=== PATIENT | female | born 1935 | race American Indian/Alaskan Native ===

== ENCOUNTER 2017-07-16 11:46 | Inpatient (IN) | payer OTHER ==
[2017-07-16 14:50] LABS: BASO % 1.1 % (0.0-2.0); EOS # 0.1 K/uL (0.0-0.7); EOS % 1.4 % (0.0-4.0); HEMOGLOBIN 11.4 g/dL (11.0-16.0); LYMPH # 1.2 K/uL (1.0-4.3); LYMPH % 30.9 % (20.0-40.0); MEAN CELL VOLUME 78.4 fL (81.0-99.0); MEAN CORPUSCULAR HEMOGLOBIN 25.4 pg (27.0-31.0); MEAN CORPUSCULAR HGB CONC 32.3 g/dL (33.0-37.0); MEAN PLATELET VOLUME 8.5 fL (7.2-11.7); MONO # 0.4 K/uL (0.0-0.8); MONO % 9.8 % (0.0-10.0); NEUT # 2.3 K/uL (1.8-7.0); NEUT % 56.8 % (50.0-75.0); NRBC % 0.2 % (0.0-2.0); RBC 4.5 Mil/uL (3.80-5.20); RED CELL DISTRIBUTION WIDTH 19.3 % (11.5-14.5)
--- NOTE | 2017-07-16 15:04 | CT ---
PROCEDURE: CT HEAD WITHOUT CONTRAST. HISTORY: Dizziness. b/l ear pain COMPARISON: None available. TECHNIQUE: Axial computed tomography images were obtained through the head/brain without intravenous contrast. Radiation dose: Total exam DLP = 808.83 mGy-cm. This CT exam was performed using one or more of the following dose reduction techniques: Automated exposure control, adjustment of the mA and/or kV according to patient size, and/or use of iterative reconstruction technique. FINDINGS: HEMORRHAGE: No intracranial hemorrhage. BRAIN: Diffuse atrophy with prominence of the ventricles and sulci noted. No mass effect or edema. Dense intracranial atherosclerosis. Nonspecific prominence of the pituitary gland measuring approximately 9 mm. Scattered periventricular and subcortical white matter hypodensities, which are nonspecific, but often seen with chronic microvascular ischemic disease. Please note that MRI with diffusion imaging is more sensitive in the detection of acute ischemic event. VENTRICLES: No hydrocephalus. CALVARIUM: Unremarkable. PARANASAL SINUSES: Unremarkable as visualized. No significant inflammatory changes. MASTOID AIR CELLS: Opacification/fluid within the right mastoid air cells. The left mastoid air cells appear clear. OTHER FINDINGS: None. IMPRESSION: Generalized atrophy. Nonspecific white matter changes. Partial opacification/fluid within the right mastoid air cells. Correlate clinically mastoiditis. Nonspecific prominence of the pituitary gland measuring approximately 9 mm.
[2017-07-16 15:20] LABS: CALCIUM 8.6 mg/dl (8.6-10.4); GFR AFRICAN-AMERICAN > 60; GFR NON-AFRICAN AMERICAN > 60
[2017-07-16 15:22] LABS: ALB/GLOB RATIO 1.1 (1.0-2.1); ALBUMIN 4.4 g/dL (3.5-5.0); ALT/SGPT 19 U/L (9-52); AST/SGOT 61 U/L (14-36); BLOOD UREA NITROGEN 15 mg/dL (7-17); MAGNESIUM 1.3 mg/dL (1.6-2.3)
[2017-07-16] MEDS ORDERED: Magnesium Sulfate 1 gm in D5W 1 GM/100 ML BAG IVPB STA (15:46)
[2017-07-16] MEDS ORDERED: cefTRIAXone IV 1 gm in Dextros 50 ML IVPB ONE (16:03)
[2017-07-16] MEDS ORDERED: Vancomycin 1 GM 1 GM/250 ML BAG IVPB STA (16:03)
--- NOTE | 2017-07-16 16:04 | C.PDOC ---
History Of Present Illness Pt had a near-syncopal episode this morning. Pt has been c/o ear pain on/off for the past 2 weeks. Time Seen by Provider: 07/16/17 13:11 Chief Complaint (Nursing): Dizziness/Lightheaded History Per: Patient Onset/Duration Of Symptoms: Hrs (this morning) Current Symptoms Are (Timing): Better Number Of Syncopal Episodes: 1 Associated Symptoms Preceding Syncopal Episode: Worse With Standing Seizure Or Post-ictal Symptoms: None Fall Associated With With Symptoms: No Severity: Moderate Additional History Per: Prior Records - Symptoms Of CVA Recent Head Trauma: No Past Medical History Reviewed: Historical Data, Nursing Documentation, Vital Signs Vital Signs: Last Vital Signs Temp 98.3 F 07/16/17 12:00 Pulse 70 07/16/17 12:00 Resp 16 07/16/17 12:00 BP 210/83 H 07/16/17 12:00 Pulse Ox 98 07/16/17 12:00 - Medical History PMH: Arthritis, Colonic Polyps, Diverticulitis, HTN, Hypercholesterolemia Surgical History: Appendectomy, Endoscopy - [facility] Procedures CLOSED ENDOSCOPIC BIOPSY OF LARGE INTESTINE (10/21/13) Family History: States: Unknown Family Hx - Social History Hx Tobacco Use: No Hx Alcohol Use: No Hx Substance Use: No - Immunization History Hx Tetanus Toxoid Vaccination: No Hx Influenza Vaccination: No Hx Pneumococcal Vaccination: No Review Of Systems Except As Marked, All Systems Reviewed And Found Negative. Constitutional: Negative for: Weakness ENT: Positive for: Ear Pain. Negative for: Ear Discharge Cardiovascular: Negative for: Chest Pain Respiratory: Negative for: Shortness of Breath, Hemoptysis Gastrointestinal: Positive for: Nausea. Negative for: Vomiting, Abdominal Pain Musculoskeletal: Negative for: Neck Pain Skin: Negative for: Rash Neurological: Negative for: Weakness, Numbness, Seizures, Altered Mental Status Physical Exam - Physical Exam Appears: Non-toxic, No Acute Distress Skin: Normal Color, Warm, Dry, No Rash Head: Atraumatic, Normacephalic, Tenderness (to right mastoid area) Eye(s): bilateral: PERRL, EOMI Ear(s): Left: Other (excessive was in ear canal), Right: Normal Neck: Normal ROM, Supple Cardiovascular: Rhythm Regular Respiratory: Normal Breath Sounds, No Accessory Muscle Use Gastrointestinal/Abdominal: Soft, No Tenderness Extremity: Normal ROM Neurological/Psych: Oriented x3, Normal Motor, Normal Sensation ED Course And Treatment - Laboratory Results Result Diagrams: 07/16/17 14:45 07/16/17 14:45 Interpretation Of Abnormal: Mild hypomagnesemia ECG: Interpreted By Me, Viewed By Me ECG Rhythm: Sinus Rhythm, Nonspecific Changes Rate From EC O2 Sat by Pulse Oximetry: 98 Pulse Ox Interpretation: Normal - CT Scan/US CT head Other Rad Studies (CT/US): Read By Radiologist, Radiology Report Reviewed CT/US Interpretation: IMPRESSION: Generalized atrophy. Nonspecific white matter changes. Partial opacification/fluid within the right mastoid air cells. Correlate clinically mastoiditis. Nonspecific prominence of the pituitary gland measuring approximately 9 mm. Progress - Interventions Interventions:: Observation - Medications Administered Oral: Antihypertensive Intravenous: Other (Abx. Mg.) - Data Reviewed Data Reviewed: Lab, Diagnostic imaging, EKG, Old records - Patient Status Patient status: Partially improved - Continuity of Care Discussed patient case with:: Patient, ED Nurse, Covering for PMD Disposition Discussed With : Julian Bowens Comment: He accepted pt on his service. Doctor Will See Patient In The: Hospital Counseled Patient/Family Regarding: Studies Performed, Diagnosis - Disposition Disposition: HOSPITALIZED Disposition Time: 16:00 Condition: FAIR - Clinical Impression Clinical Impression: Near syncope, Uncontrolled hypertension, Mastoiditis
[2017-07-16] MEDS ORDERED: Magnesium Sulfate 1 gm in D5W 1 GM/100 ML BAG IVPB ONE (16:25)
[2017-07-16] MEDS ORDERED: Vancomycin 1 gm/NS 200 ml 1 GM/200 ML BAG IVPB ONE (18:00)
[2017-07-16] MEDS ORDERED: Enalaprilat 2.5 MG/2 ML IVP STA (18:39)
[2017-07-16] MEDS ORDERED: Enalaprilat 2.5 MG/2 ML ONE (18:52)
--- NOTE | 2017-07-16 19:36 | CP.PCM.HP ---
Past Patient History - Past Medical History & Family History Past Medical History?: Yes - Past Social History Smoking Status: Never Smoked - CARDIAC Hx Hypercholesterolemia: Yes Hx Hypertension: Yes - PULMONARY Hx Respiratory Disorders: No - NEUROLOGICAL Hx Neurological Disorder: No - HEENT Hx HEENT Problems: Yes Hx Cataracts: Yes Hx Glaucoma: Yes - ENDOCRINE/METABOLIC Hx Endocrine Disorders: No - HEMATOLOGICAL/ONCOLOGICAL Hx Blood Disorders: No - INTEGUMENTARY Hx Dermatological Problems: No - MUSCULOSKELETAL/RHEUMATOLOGICAL Hx Arthritis: Yes - GASTROINTESTINAL Hx Diverticulitis: Yes - GENITOURINARY/GYNECOLOGICAL Hx Genitourinary Disorders: No - PSYCHIATRIC Hx Substance Use: No - SURGICAL HISTORY Hx Appendectomy: Yes - ANESTHESIA Hx Anesthesia: Yes Hx Anesthesia Reactions: No Hx Malignant Hyperthermia: No Meds Allergies/Adverse Reactions: Allergies Allergy/AdvReac Type Severity Reaction Status Date / Time No Known Allergies Allergy Verified 07/16/17 12:10 Physical Exam - Constitutional Appears: Well - Head Exam Head Exam: ATRAUMATIC, NORMAL INSPECTION, NORMOCEPHALIC - Eye Exam Eye Exam: EOMI, Normal appearance, PERRL Pupil Exam: NORMAL ACCOMODATION, PERRL - ENT Exam ENT Exam: Mucous Membranes Moist, Normal Exam - Neck Exam Neck exam: Positive for: Normal Inspection - Respiratory Exam Respiratory Exam: Decreased Breath Sounds - Cardiovascular Exam Cardiovascular Exam: REGULAR RHYTHM, +S1, +S2 - GI/Abdominal Exam GI & Abdominal Exam: Diminished Bowel Sounds, Soft - Rectal Exam Rectal Exam: Deferred Results - Vital Signs Recent Vital Signs: Last Vital Signs Temp 98.6 F 07/16/17 19:23 Pulse 72 07/16/17 19:23 Resp 16 07/16/17 19:23 BP 186/95 H 07/16/17 19:23 Pulse Ox 99 07/16/17 19:23 - Labs Result Diagrams: 07/16/17 14:45 07/16/17 14:45 Labs: Laboratory Results - last 24 hr 07/16/17 07/16/17 07/16/17 12:02 14:45 14:45 WBC 4.0 L RBC 4.50 Hgb 11.4 Hct 35.3 MCV 78.4 L MCH 25.4 L MCHC 32.3 L RDW 19.3 H Plt Count 227 MPV 8.5 Neut % (Auto) 56.8 Lymph % (Auto) 30.9 [place] % (Auto) 9.8 Eos % (Auto) 1.4 Baso % (Auto) 1.1 Neut # (Auto) 2.3 Lymph # (Auto) 1.2 [place] # (Auto) 0.4 Eos # (Auto) 0.1 Baso # (Auto) 0.0 Sodium 141 Potassium 4.7 Chloride 101 Carbon Dioxide 31 H Anion Gap 13 BUN 15 Creatinine 0.8 Est GFR ( Amer) > 60 Est GFR (Non-Af Amer) > 60 POC Glucose (mg/dL) 128 H Random Glucose 90 Calcium 8.6 Magnesium 1.3 L Total Bilirubin 1.3 AST 61 H ALT 19 Alkaline Phosphatase 58 Troponin I 0.0150 Total Protein 8.5 H Albumin 4.4 Globulin 4.2 H Albumin/Globulin Ratio 1.1
[2017-07-16] MEDS ORDERED: Enoxaparin 40 mg Syringe SC ONE (20:22)
[2017-07-16] MEDS ORDERED: Aritificial Tears (15ml) OU PRN (20:45)
--- NOTE | 2017-07-17 07:07 | CP.PCM.CON ---
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 DEMENTIA WORK UP MRI/CAROTID/EEG/ECHO Past Patient History - Past Medical History & Family History Past Medical History?: Yes - Past Social History Smoking Status: Never Smoked - CARDIAC Hx Hypercholesterolemia: Yes Hx Hypertension: Yes - PULMONARY Hx Respiratory Disorders: No - NEUROLOGICAL Hx Neurological Disorder: No - HEENT Hx HEENT Problems: Yes Hx Cataracts: Yes Hx Glaucoma: Yes - ENDOCRINE/METABOLIC Hx Endocrine Disorders: No - HEMATOLOGICAL/ONCOLOGICAL Hx Blood Disorders: No - INTEGUMENTARY Hx Dermatological Problems: No - MUSCULOSKELETAL/RHEUMATOLOGICAL Hx Falls: Yes (2 years ago x1) - GASTROINTESTINAL Hx Diverticulitis: Yes - GENITOURINARY/GYNECOLOGICAL Hx Genitourinary Disorders: No - PSYCHIATRIC Hx Substance Use: No - SURGICAL HISTORY Hx Appendectomy: Yes - ANESTHESIA Hx Anesthesia: Yes Hx Anesthesia Reactions: No Hx Malignant Hyperthermia: No Meds Allergies/Adverse Reactions: Allergies Allergy/AdvReac Type Severity Reaction Status Date / Time No Known Allergies Allergy Verified 07/16/17 12:10 - Medications Medications: Current Medications Artificial Tears (Artificial Tears) 0 ml OU Q6H PRN PRN Reason: DRY EYES Aspirin (Ecotrin) 81 mg PO DAILY [facility] Ceftriaxone Sodium (Rocephin 1 Gram Ivpb) 1 gm in 100 mls @ 100 mls/hr IVPB DAILY@1100 [facility] Azithromycin 500 mg/ Sodium (Chloride) 250 mls @ 250 mls/hr IVPB DAILY [facility] Lactulose (Enulose) 10 gm PO BID [facility] Losartan Potassium (Cozaar) 25 mg PO DAILY [facility] Pantoprazole Sodium (Protonix Ec Tab) 40 mg PO DAILY [facility] Pneumococcal Polyvalent Vaccine (Pneumovax 23 Vaccine) 0.5 ml IM .ONCE ONE Stop: 07/19/17 10:01 Propranolol HCl (Inderal) 20 mg PO BID [facility] Rosuvastatin Calcium (Crestor) 10 mg PO HS [facility] Last Admin: 07/16/17 22:49 Dose: 10 mg Rosuvastatin Calcium (Crestor) 5 mg PO HS [facility] Tramadol HCl (Ultram) 50 mg PO Q6 PRN PRN Reason: Pain, moderate (4-7) Results - Vital Signs Recent Vital Signs: Last Vital Signs Temp 98.2 F 07/16/17 23:00 Pulse 67 07/16/17 23:00 Resp 20 07/16/17 23:00 BP 185/75 H 07/16/17 23:00 Pulse Ox 99 07/16/17 23:00 - Labs Result Diagrams: 07/16/17 14:45 07/16/17 14:45 Labs: Laboratory Results - last 24 hr 07/16/17 07/16/17 07/16/17 12:02 14:45 14:45 WBC 4.0 L RBC 4.50 Hgb 11.4 Hct 35.3 MCV 78.4 L MCH 25.4 L MCHC 32.3 L RDW 19.3 H Plt Count 227 MPV 8.5 Neut % (Auto) 56.8 Lymph % (Auto) 30.9 [place] % (Auto) 9.8 Eos % (Auto) 1.4 Baso % (Auto) 1.1 Neut # (Auto) 2.3 Lymph # (Auto) 1.2 [place] # (Auto) 0.4 Eos # (Auto) 0.1 Baso # (Auto) 0.0 Sodium 141 Potassium 4.7 Chloride 101 Carbon Dioxide 31 H Anion Gap 13 BUN 15 Creatinine 0.8 Est GFR ( Amer) > 60 Est GFR (Non-Af Amer) > 60 POC Glucose (mg/dL) 128 H Random Glucose 90 Calcium 8.6 Magnesium 1.3 L Total Bilirubin 1.3 AST 61 H ALT 19 Alkaline Phosphatase 58 Troponin I 0.0150 Total Protein 8.5 H Albumin 4.4 Globulin 4.2 H Albumin/Globulin Ratio 1.1
[2017-07-17 08:36] LABS: HDL CHOLESTEROL 52 mg/dL (30-70)
[2017-07-17 08:42] LABS: FREE T4 1.31 ng/dL (0.78-2.19)
[2017-07-17 08:48] LABS: LDL CHOLESTEROL 165 mg/dL (0-129)
--- NOTE | 2017-07-17 08:53 | CON ---
DATE: 07/17/2017. TIME OF EVALUATION: 06:35 a.m. NEUROLOGICAL PROBLEM: Near syncopal attack. CHIEF COMPLAINT: The patient was brought into [facility] with history of episode of lightheadedness, which decided make her to come to the hospital for further evaluation. HISTORY OF PRESENT ILLNESS: Ms. Mandy Can is an 81-year-old right-handed female been presenting with about to 2-weeks history of ear pain and being told with infection spreading down to her neck. Prior to the admission, while she was sitting in the breakfast table she felt abrupt onset of lightheadedness. No history of fall. No history of trauma. No history of involuntary movements. No history of bowel and bladder incontinence at the scene. No similar episodes happened in the past. She also admitting history of left leg swelling and alternating pain to the right and left leg for the last 2 years. Denies lower back pain. She also admitting tingling and numbness sensation of her both arms and legs for more than a year. PAST MEDICAL HISTORY: Hypertension, arthritis. ALLERGIES: NO KNOWN ALLERGIES. PERSONAL HISTORY: Denies smoking or alcohol use. REVIEW OF SYSTEMS: A 12-point system been reviewed from [facility]. MEDICATIONS: Azithromycin, Crestor, Enulose, Inderal, Protonix, ceftriaxone. PHYSICAL EXAMINATION: VITAL SIGNS: Blood pressure 185/75, mean artery pressure of 111, respiratory rate 16, temperature 98.2, pulse rate 67. NECK : Supple. No carotid bruits. HEART: Sounds regular. CHEST: Fair air entry. EXTREMITIES: No edema in legs. NEUROLOGIC: Mental status examination, she is awake, alert, oriented to person, place and time. Speech is clear. Naming, repetition, fluency, comprehension all within normal. Cranial nerve examination, visual field intact. Pupils reactive to light. Extraocular movement decreased in all direction. No facial sensory deficit. No facial asymmetry. Hearing seems to be intact. Tongue is midline. Good gag. Mouth is moist. Motor examination, outstretched hand with eyes closed, no drift noted. Mild sensory tremor noted. Deep tendon reflexes, mildly increased deep tendon reflexes in the right upper extremity to compare with the left side. Both knees are absent. Both ankles are absent. Plantars are downgoing. Coordination, [id number] test is intact. Sensory examination, bilateral distal symmetric sensory motor neuropathy noted. No cortical sensory loss. WORKUP : CT of the head, atrophy with no acute changes noted. EKG normal sinus rhythm. Blood workup, WBC 4.0, hemoglobin 11.4, hematocrit 35.3, platelet 227. Sodium 141, potassium 4.7, chloride 101, bicarbonate 31, BUN 15, creatinine 0.8, GFR more than 60. Glucose 128, calcium 8.6, magnesium 1.3. CONCLUSION: Upon reviewing her history and neurological examination Ms. Mandy Salehy been presenting with; 1. Near syncopal attack. From neurological point of view, it could be vertebrobasilar insufficiency versus nonconvulsive seizures. 2. The patient also suffering from possible left subcortical dysfunction manifesting with right upper hyperreflexia could be from small vessel disease, which probably old. 3. 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 RECOMMENDATIONS: 1. MRI of the brain to rule out any ischemic process. 2. Carotid Doppler to assess the stenosis. 3. Electroencephalogram to rule out paroxysmal activities. 4. Dementia workup. 5. The patient is okay to continue with antiplatelets for stroke prophylaxis in addition to statin and angiotensin receptor blockers. The patient will be followed closely with you. Hayden Worthy MD
[2017-07-17] MEDS: Pantoprazole 40 mg EC Tab PO SCH (09:08)
[2017-07-17 09:56] LABS: FOLATE > 20.0 ng/mL
[2017-07-17] MEDS ORDERED: Pantoprazole 40 mg EC Tab PO SCH (10:00)
--- NOTE | 2017-07-17 10:34 | MRI ---
PROCEDURE: MRI of the brain dated 07/17/2017 HISTORY: MASTER PILOT ischemia COMPARISON: Comparison made with prior CT scan brain 07/16/2017. TECHNIQUE: Multiplanar, multisequence MR images of the brain were obtained without intravenous contrast enhancement. FINDINGS: HEMORRHAGE: No acute parenchymal, subarachnoid or extra-axial hemorrhage. No evidence of hemosiderin deposition identified on gradient echo weighted sequence. DWI: No evidence of an acute or early subacute infarction seen on diffusion imaging. BRAIN PARENCHYMA: No acute intracranial hemorrhage. Moderate diffuse/ confluent chronic periventricular white matter ischemic changes seen extending peripherally into the deep white matter both cerebral hemispheres. Multiple more discrete ischemic foci scattered about the deep and subcortical white matter on bilaterally. There are also ischemic changes seen within the mid beto. There may also be scattered chronic bilateral basal nuclei lacunar type infarcts admixed with dilated perivascular spaces. None of these changes exhibit restricted diffusion. No obvious parenchymal nor extra-axial mass or collection seen on this noncontrast study. Note aspect of the interhemispheric fissure again made of a large on dural calcification within the anterior Moderate to fairly significant somewhat more central volume loss evidenced by disproportionate enlargement of the ventricles as compared the sulci. VENTRICLES: No obstructive hydrocephalus. CRANIUM: No calvarial abnormalities Note made of a large ORBITS: Orbits and contents grossly unremarkable. PARANASAL SINUSES/MASTOIDS: There is partial opacification right inferior mastoid air complex. VASCULAR SYSTEM: The cavernous and supraclinoid segments of the carotid arteries exhibit marked ectasia though are patent. OTHER FINDINGS: None. IMPRESSION: No evidence of acute intracranial hemorrhage or infarct. Chronic white matter and brainstem ischemic changes. There may also be scattered chronic bilateral basal nuclei lacunar type infarcts admixed with dilated perivascular spaces Moderate to fairly significant central volume loss.
[2017-07-17] MEDS ORDERED: cefTRIAXone 1 gm 1 GM/100 ML BAG IVPB SCH (11:00)
--- NOTE | 2017-07-17 12:55 | VASCLAB ---
PROCEDURE: HISTORY: Near syncope COMPARISON: None available. TECHNIQUE: Grayscale and duplex Doppler evaluation of the cervical carotid and vertebral arteries were performed. The common carotid, carotid bifurcations and cervical Internal Carotid Artery (ICA) and proximal External Carotid Artery (ECA) were evaluated. The vertebral arteries were evaluated for gross patency and flow direction. Report prepared by ELIJAH Saldaañ FINDINGS: RIGHT CAROTID ARTERIES: 1. Common Carotid Artery: No significant focal plaque formation of the right common carotid artery. Maximum Peak Systolic velocity: 48 cm/sec: End-diastolic velocity 8 cm/sec. 2. Carotid Bifurcation: Heterogeneous plaque formation. Maximum Peak Systolic velocity: 49 cm/sec: End-diastolic velocity 8 cm/sec. 3. Internal Carotid Artery: Plaque description: Heterogeneous 3.1. Proximal Segment: Peak systolic velocity 102 cm/sec: End-diastolic velocity 16 cm/sec - % stenosis 0-15% 3.2. Middle Segment: Peak systolic velocity 37 cm/sec: End-diastolic velocity 14 cm/sec - % stenosis 0-15% 3.3. Distal Segment: Peak systolic velocity 87 cm/sec: End-diastolic velocity 24 cm/sec - % stenosis 0-15% 4. External Carotid Artery: No significant focal plaque formation. Peak systolic velocity 76 cm/sec 5. ICA/CCA Ratio: 1.6 LEFT CAROTID ARTERIES: 1. Common Carotid Artery: No significant focal plaque formation of the left common carotid artery. Maximum Peak Systolic velocity: 68 cm/sec: End-diastolic velocity 12 cm/sec. 2. Carotid Bifurcation: Heterogeneous plaque formation. Maximum Peak Systolic velocity: 30 cm/sec: End-diastolic velocity 10 cm/sec. 3. Internal Carotid Artery: Plaque description: Heterogeneous 3.1. Proximal Segment: Peak systolic velocity 54 cm/sec: End-diastolic velocity 15 cm/sec - % stenosis 0-15% 3.2. Middle Segment: Peak systolic velocity 60 cm/sec: End-diastolic velocity 17 cm/sec - % stenosis 0-15% 3.3. Distal Segment: Peak systolic velocity 73 cm/sec: End-diastolic velocity 19 cm/sec - % stenosis 0-15% 4. External Carotid Artery: No significant focal plaque formation. Peak systolic velocity 58 cm/sec 5. ICA/CCA Ratio: 1.7 VERTEBRAL ARTERIES: 1. Right Vertebral Artery: The right vertebral artery flow direction is antegrade. 2. Left Vertebral Artery: The left vertebral artery flow direction is antegrade. OTHER FINDINGS: 1. Right Brachial Blood pressure: 180 mmHg. 2. Left Brachial Blood pressure: 190 mmHg. IMPRESSION: RIGHT: Duplex scan does not suggest hemodynamically significant stenosis of the right extracranial carotid arteries. LEFT: Duplex scan does not suggest hemodynamically significant stenosis of the left extracranial carotid arteries.
[2017-07-17] MEDS ORDERED: Aluminum Hydroxide/Magnesium Hydroxide Susp (30 mL) PO ONE (13:10)
[2017-07-17] MEDS: Azithromycin 500 MG in Sodium Chloride 0.9% 250 ML IVPB SCH (13:43)
--- NOTE | 2017-07-17 17:04 | CP.PCM.PN ---
Subjective - Date & Time of Evaluation Date of Evaluation: 07/17/17 Time of Evaluation: 11:00 - Subjective Subjective: clinically same Objective - Vital Signs/Intake and Output Vital Signs (last 24 hours): Temp Pulse Resp BP Pulse Ox 98.1 F 78 18 162/76 H 99 07/17/17 15:16 07/17/17 16:00 07/17/17 15:16 07/17/17 15:16 07/17/17 15:16 Intake and Output: 07/17/17 07/17/17 06:59 18:59 Intake Total 150 Balance 150 - Medications Medications: Current Medications Artificial Tears (Artificial Tears) 0 ml OU Q6H PRN PRN Reason: DRY EYES Aspirin (Ecotrin) 81 mg PO DAILY [facility] Last Admin: 07/17/17 09:08 Dose: 81 mg Enoxaparin Sodium (Lovenox) 40 mg SC DAILY@2200 [facility] Azithromycin 500 mg/ Sodium (Chloride) 250 mls @ 250 mls/hr IVPB DAILY [facility] Last Admin: 07/17/17 13:43 Dose: 250 mls/hr Ceftriaxone Sodium 1 gm/ (Sodium Chloride) 100 mls @ 100 mls/hr IVPB Q24H [facility] Last Admin: 07/17/17 14:20 Dose: 100 mls/hr Lactulose (Enulose) 10 gm PO BID [facility] Last Admin: 07/17/17 09:10 Dose: Not Given Losartan Potassium (Cozaar) 25 mg PO DAILY [facility] Last Admin: 07/17/17 09:10 Dose: Not Given Pantoprazole Sodium (Protonix Ec Tab) 40 mg PO DAILY [facility] Last Admin: 07/17/17 09:08 Dose: 40 mg Pneumococcal Polyvalent Vaccine (Pneumovax 23 Vaccine) 0.5 ml IM .ONCE ONE Stop: 07/19/17 10:01 Propranolol HCl (Inderal) 20 mg PO BID [facility] Last Admin: 07/17/17 09:08 Dose: 20 mg Rosuvastatin Calcium (Crestor) 10 mg PO HS [facility] Last Admin: 07/16/17 22:49 Dose: 10 mg Rosuvastatin Calcium (Crestor) 5 mg PO HS [facility] Tramadol HCl (Ultram) 50 mg PO Q6 PRN PRN Reason: Pain, moderate (4-7) - Labs Labs: 07/16/17 14:45 02/12/18 14:45 - Constitutional Appears: Well - Head Exam Head Exam: ATRAUMATIC, NORMAL INSPECTION, NORMOCEPHALIC - Eye Exam Eye Exam: EOMI, Normal appearance, PERRL Pupil Exam: NORMAL ACCOMODATION, PERRL - ENT Exam ENT Exam: Mucous Membranes Moist, Normal Exam - Neck Exam Neck Exam: Full ROM, Normal Inspection. absent: Lymphadenopathy - Respiratory Exam Respiratory Exam: Decreased Breath Sounds - Cardiovascular Exam Cardiovascular Exam: REGULAR RHYTHM, +S1, +S2 - GI/Abdominal Exam GI & Abdominal Exam: Soft, Diminished Bowel Sounds - Rectal Exam Rectal Exam: Deferred
--- NOTE | 2017-07-17 17:47 | CP.PCM.CON ---
Past Patient History - Past Medical History & Family History Past Medical History?: Yes - Past Social History Smoking Status: Never Smoked - CARDIAC Hx Hypercholesterolemia: Yes Hx Hypertension: Yes - PULMONARY Hx Respiratory Disorders: No - NEUROLOGICAL Hx Neurological Disorder: No - HEENT Hx HEENT Problems: Yes Hx Cataracts: Yes Hx Glaucoma: Yes - ENDOCRINE/METABOLIC Hx Endocrine Disorders: No - HEMATOLOGICAL/ONCOLOGICAL Hx Blood Disorders: No - INTEGUMENTARY Hx Dermatological Problems: No - MUSCULOSKELETAL/RHEUMATOLOGICAL Hx Falls: Yes (2 years ago x1) - GASTROINTESTINAL Hx Diverticulitis: Yes - GENITOURINARY/GYNECOLOGICAL Hx Genitourinary Disorders: No - PSYCHIATRIC Hx Substance Use: No - SURGICAL HISTORY Hx Appendectomy: Yes - ANESTHESIA Hx Anesthesia: Yes Hx Anesthesia Reactions: No Hx Malignant Hyperthermia: No Meds Allergies/Adverse Reactions: Allergies Allergy/AdvReac Type Severity Reaction Status Date / Time No Known Allergies Allergy Verified 07/16/17 12:10 - Medications Medications: Current Medications Artificial Tears (Artificial Tears) 0 ml OU Q6H PRN PRN Reason: DRY EYES Aspirin (Ecotrin) 81 mg PO DAILY [facility] Last Admin: 07/17/17 09:08 Dose: 81 mg Enoxaparin Sodium (Lovenox) 40 mg SC DAILY@2200 [facility] Azithromycin 500 mg/ Sodium (Chloride) 250 mls @ 250 mls/hr IVPB DAILY [facility] Last Admin: 07/17/17 13:43 Dose: 250 mls/hr Ceftriaxone Sodium 1 gm/ (Sodium Chloride) 100 mls @ 100 mls/hr IVPB Q24H [facility] Last Admin: 07/17/17 14:20 Dose: 100 mls/hr Lactulose (Enulose) 10 gm PO BID [facility] Last Admin: 07/17/17 17:26 Dose: 10 gm Losartan Potassium (Cozaar) 25 mg PO DAILY [facility] Last Admin: 07/17/17 09:10 Dose: Not Given Pantoprazole Sodium (Protonix Ec Tab) 40 mg PO DAILY [facility] Last Admin: 07/17/17 09:08 Dose: 40 mg Pneumococcal Polyvalent Vaccine (Pneumovax 23 Vaccine) 0.5 ml IM .ONCE ONE Stop: 07/19/17 10:01 Propranolol HCl (Inderal) 20 mg PO BID [facility] Last Admin: 07/17/17 17:26 Dose: 20 mg Rosuvastatin Calcium (Crestor) 10 mg PO [facility] Last Admin: 07/16/17 22:49 Dose: 10 mg Rosuvastatin Calcium (Crestor) 5 mg PO HS [facility] Tramadol HCl (Ultram) 50 mg PO Q6 PRN PRN Reason: Pain, moderate (4-7) Results - Vital Signs Recent Vital Signs: Last Vital Signs Temp 98.1 F 07/17/17 15:16 Pulse 78 07/17/17 16:00 Resp 18 07/17/17 15:16 BP 162/76 H 07/17/17 15:16 Pulse Ox 99 07/17/17 15:16 - Labs Result Diagrams: 07/16/17 14:45 07/16/17 14:45 Labs: Laboratory Results - last 24 hr 07/17/17 07/17/17 07/17/17 07:24 07:32 07:32 ESR 40 H C-React Prot High Sens 5.43 H Triglycerides 89 Cholesterol 253 H LDL Cholesterol Direct 165 H HDL Cholesterol 52 Vitamin B12 464 Folate > 20.0 Free T4 1.31 TSH 3rd Generation 1.67 RPR 07/17/17 07:32 ESR C-React Prot High Sens Triglycerides Cholesterol LDL Cholesterol Direct HDL Cholesterol Vitamin B12 Folate Free T4 TSH 3rd Generation RPR Nonreactive
--- NOTE | 2017-07-17 17:47 | CP.PCM.CON ---
History of Present Illness - History of Present Illness History of Present Illness: patient seen/examined. consult to follow. recommend echocardiogram Past Patient History - Past Medical History & Family History Past Medical History?: Yes - Past Social History Smoking Status: Never Smoked - CARDIAC Hx Hypercholesterolemia: Yes Hx Hypertension: Yes - PULMONARY Hx Respiratory Disorders: No - NEUROLOGICAL Hx Neurological Disorder: No - HEENT Hx HEENT Problems: Yes Hx Cataracts: Yes Hx Glaucoma: Yes - ENDOCRINE/METABOLIC Hx Endocrine Disorders: No - HEMATOLOGICAL/ONCOLOGICAL Hx Blood Disorders: No - INTEGUMENTARY Hx Dermatological Problems: No - MUSCULOSKELETAL/RHEUMATOLOGICAL Hx Falls: Yes (2 years ago x1) - GASTROINTESTINAL Hx Diverticulitis: Yes - GENITOURINARY/GYNECOLOGICAL Hx Genitourinary Disorders: No - PSYCHIATRIC Hx Substance Use: No - SURGICAL HISTORY Hx Appendectomy: Yes - ANESTHESIA Hx Anesthesia: Yes Hx Anesthesia Reactions: No Hx Malignant Hyperthermia: No Meds Allergies/Adverse Reactions: Allergies Allergy/AdvReac Type Severity Reaction Status Date / Time No Known Allergies Allergy Verified 07/16/17 12:10 - Medications Medications: Current Medications Artificial Tears (Artificial Tears) 0 ml OU Q6H PRN PRN Reason: DRY EYES Aspirin (Ecotrin) 81 mg PO DAILY [facility] Last Admin: 07/17/17 09:08 Dose: 81 mg Enoxaparin Sodium (Lovenox) 40 mg SC DAILY@2200 [facility] Azithromycin 500 mg/ Sodium (Chloride) 250 mls @ 250 mls/hr IVPB DAILY [facility] Last Admin: 07/17/17 13:43 Dose: 250 mls/hr Ceftriaxone Sodium 1 gm/ (Sodium Chloride) 100 mls @ 100 mls/hr IVPB Q24H [facility] Last Admin: 07/17/17 14:20 Dose: 100 mls/hr Lactulose (Enulose) 10 gm PO BID [facility] Last Admin: 07/17/17 17:26 Dose: 10 gm Losartan Potassium (Cozaar) 25 mg PO DAILY [facility] Last Admin: 07/17/17 09:10 Dose: Not Given Pantoprazole Sodium (Protonix Ec Tab) 40 mg PO DAILY [facility] Last Admin: 07/17/17 09:08 Dose: 40 mg Pneumococcal Polyvalent Vaccine (Pneumovax 23 Vaccine) 0.5 ml IM .ONCE ONE Stop: 07/19/17 10:01 Propranolol HCl (Inderal) 20 mg PO BID [facility] Last Admin: 07/17/17 17:26 Dose: 20 mg Rosuvastatin Calcium (Crestor) 10 mg PO HS [facility] Last Admin: 07/16/17 22:49 Dose: 10 mg Rosuvastatin Calcium (Crestor) 5 mg PO HS [facility] Tramadol HCl (Ultram) 50 mg PO Q6 PRN PRN Reason: Pain, moderate (4-7) Results - Vital Signs Recent Vital Signs: Last Vital Signs Temp 98.1 F 07/17/17 15:16 Pulse 78 07/17/17 16:00 Resp 18 07/17/17 15:16 BP 162/76 H 07/17/17 15:16 Pulse Ox 99 07/17/17 15:16 - Labs Result Diagrams: 07/16/17 14:45 07/16/17 14:45 Labs: Laboratory Results - last 24 hr 07/17/17 07/17/17 07/17/17 07:24 07:32 07:32 ESR 40 H C-React Prot High Sens 5.43 H Triglycerides 89 Cholesterol 253 H LDL Cholesterol Direct 165 H HDL Cholesterol 52 Vitamin B12 464 Folate > 20.0 Free T4 1.31 TSH 3rd Generation 1.67 RPR 07/17/17 07:32 ESR C-React Prot High Sens Triglycerides Cholesterol LDL Cholesterol Direct HDL Cholesterol Vitamin B12 Folate Free T4 TSH 3rd Generation RPR Nonreactive
--- NOTE | 2017-07-17 20:26 | CON ---
DATE: 07/17/2017 REASON FOR CONSULTATION: Ear pain. REQUESTING PHYSICIAN: Milagros Bowens MD HISTORY OF PRESENT ILLNESS: This is an 81-year-old female with a three-week history of bilateral ear pain, which is constant, [id number] in intensity which has resolved. There was never any hearing loss or ear discharge. PAST MEDICAL HISTORY: As noted in the chart by me. MEDICATIONS: As noted in the chart by me. PHYSICAL EXAMINATION: HEAD: Atraumatic and normocephalic. FACE: Good facial movements bilaterally. CONSTITUTIONAL: Well fed, well nourished. COMMUNICATION: Communicates well and appropriately. EXTERNAL NOSE AND EARS: No masses. No lesions. No erythema. No edema. INTERNAL NOSE AND EARS: Deviated septum. No masses. No lesions. No erythema. No edema. EARS: TM intact. No fluid behind the TM. There is no ear canal edema or discharge. ORAL CAVITY AND OROPHARYNX: No masses. No lesions. No erythema. No edema. LIPS AND GUMS: No masses. No lesions. No erythema. No edema. NECK: Supple. THYROID: No thyromegaly. No goiter. LYMPH NODES: No lymphadenopathy of the neck. ASSESSMENT: 1. Ear pain. 2. Deviated septum. Ear pain has resolved. There is no evidence of ear infection. CAT scan was reviewed by me and there was no evidence of ear infection in the middle ear or mastoid either. Since ear pain has resolved, there is no ENT information needed at this point. Sigifredo Henriquez MD
[2017-07-17] MEDS: Enoxaparin 40 mg Syringe SC SCH (21:31)
--- NOTE | 2017-07-18 09:13 | PN ---
DATE: 07/18/2017. NEUROLOGIC PROBLEM: Near syncopal attack. PHYSICAL EXAMINATION: VITAL SIGNS: Blood pressure 189/101, mean arterial pressure of 103 status post hydralazine, temperature 98.2, pulse rate 63. NEUROLOGIC: No evidence of myelopathy or significant neuropathy. The patient has been complaining of worsening both hand tingling, numbness sensation, which has not been like this before. Still complaining of neck discomfortness. She denies any focal weakness at present. The patient does have hypertensive crisis, been controlled with medication. RECOMMENDATIONS: 1. Considering her neck discomfortness and worsening hand sensory dysfunction, I recommended her to have MRI of the cervical spine to rule out any spinal pathology. 2. Continue with the present management. The patient recommended EEG pending. Hayden Worthy MD MTD[facility]on[facility]
[2017-07-18] MEDS: Azithromycin 500 MG in Sodium Chloride 0.9% 250 ML IVPB SCH (10:12)
[2017-07-18] MEDS: Pantoprazole 40 mg EC Tab PO SCH (10:12)
--- NOTE | 2017-07-18 10:50 | MRI ---
PROCEDURE: MRI of the cervical spine dated 07/18/2017. HISTORY: Myelopathy COMPARISON: No prior study available for comparison. TECHNIQUE: Multiecho multiplanar sequences were performed through the cervical spine without the use of intravenous contrast. FINDINGS: The current study reveals no acute compression fractures nor retropulsed fragments. Minor chronic anterior stature loss of the C5-C6 segments with fish-mouth endplate deformity inferior C4 segment. There is also mild reversal of the normal upper cervical lordosis. Vertebral bodies and facets otherwise normally aligned. The central canal appears slightly narrowed which appears to be secondary to congenitally short pedicles. Changes are exacerbated at nearly every level. Mild multilevel degenerative spondylosis. C2-C3: There is mild disc desiccation C2-C3 level with without anterior disc space narrowing. Minimal broad-based bulge of the posterior annulus is present. There also appears be tiny annular fissure within mid posterior annulus. Central canal is slightly narrowed. C3-C4: At the C3-C4 level, there is disc desiccation and mild anterior disc space narrowing with cortical endplate irregularity. Small irregular disc ridge complex focally larger on the right than left and contiguous with mildly hypertrophic uncovertebral joints. The disc ridge complex results in moderate to fairly significant central canal stenosis and cord compression. Facet joints are hypertrophic left greater than right. . Exit foramina are stenotic bilaterally left greater than right. C4-C5: There is disc desiccation and disc space narrowing with cortical endplate irregularity. Small to medium-sized asymmetric disc ridge complex larger on the left than right and contiguous with hypertrophic uncovertebral joints. The left facets also quite hypertrophic. Right facet mildly hypertrophic. Changes result in moderate to significant canal stenosis and cord compression . The exit foramina are narrowed bilaterally. C5-C6: There is disc desiccation and mild disc space narrowing. Minimal bulge of the posterior annulus present. The uncovertebral joints are hypertrophic at the facets. Changes result in mild compressive effects along the anterolateral borders of the thecal sac bilaterally. Central canal is slightly narrowed. Exit foramina are stenotic on the left and marginal to adequate on the right C6-C7: At the C6-C7 level, there is disc desiccation and disc space narrowing with irregular disc ridge complex contiguous hypertrophic uncovertebral joints. Changes result in moderate to fairly significant canal stenosis and cord compression. Exit foramina are also stenotic bilaterally C7-T1: No disc herniation, spinal canal stenosis or neural foraminal narrowing. Cervicomedullary junction unremarkable. OTHER FINDINGS: No definitive intrinsic signal changes are seen within the visualized spinal cord. IMPRESSION: No acute compression fractures however mild chronic anterior stature loss C5 and C6 segments felt be degenerative in origin. There is also mild fish-mouth endplate deformities inferior C4 and inferior C7 endplates. 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 Changes result in mild to moderate- significant canal stenosis and cord compression as well as bilateral foraminal stenosis as detailed above.
--- NOTE | 2017-07-18 16:35 | CARD ---
APPROVED REPORT EKG Measurement Heart [id number] <Conclusion> Normal sinus rhythm Minimal voltage criteria for LVH, may be normal variant T wave abnormality, consider anterolateral ischemia Abnormal ECG
--- NOTE | 2017-07-18 18:39 | CP.PCM.PN ---
Subjective - Date & Time of Evaluation Date of Evaluation: 07/18/17 Time of Evaluation: 15:00 - Subjective Subjective: clinically same Objective - Vital Signs/Intake and Output Vital Signs (last 24 hours): Temp Pulse Resp BP Pulse Ox 98.2 F 82 20 182/82 H 97 07/18/17 15:14 07/18/17 16:49 07/18/17 15:14 07/18/17 16:49 07/18/17 15:14 - Medications Medications: Current Medications Artificial Tears (Artificial Tears) 0 ml OU Q6H PRN PRN Reason: DRY EYES Aspirin (Ecotrin) 81 mg PO DAILY [facility] Last Admin: 07/18/17 10:10 Dose: 81 mg Enoxaparin Sodium (Lovenox) 40 mg SC DAILY@2200 [facility] Last Admin: 07/17/17 21:31 Dose: 40 mg Hydralazine HCl (Apresoline) 25 mg PO BID [facility] Last Admin: 07/18/17 17:29 Dose: 25 mg Azithromycin 500 mg/ Sodium (Chloride) 250 mls @ 250 mls/hr IVPB DAILY [facility] Last Admin: 07/18/17 10:12 Dose: 250 mls/hr Ceftriaxone Sodium 1 gm/ (Sodium Chloride) 100 mls @ 100 mls/hr IVPB Q24H [facility] Last Admin: 07/18/17 13:39 Dose: 100 mls/hr Lactulose (Enulose) 10 gm PO BID [facility] Last Admin: 07/18/17 17:27 Dose: 10 gm Losartan Potassium (Cozaar) 50 mg PO DAILY [facility] Pantoprazole Sodium (Protonix Ec Tab) 40 mg PO DAILY [facility] Last Admin: 07/18/17 10:12 Dose: 40 mg Pneumococcal Polyvalent Vaccine (Pneumovax 23 Vaccine) 0.5 ml IM .ONCE ONE Stop: 07/19/17 10:01 Propranolol HCl (Inderal) 20 mg PO BID [facility] Last Admin: 07/18/17 10:11 Dose: 20 mg Rosuvastatin Calcium (Crestor) 10 mg PO HS [facility] Last Admin: 07/17/17 21:31 Dose: 10 mg Tramadol HCl (Ultram) 50 mg PO Q6 PRN PRN Reason: Pain, moderate (4-7) Last Admin: 07/18/17 16:31 Dose: 50 mg - Labs Labs: 07/16/17 14:45 07/16/17 14:45 - Constitutional Appears: Well - Head Exam Head Exam: ATRAUMATIC, NORMAL INSPECTION, NORMOCEPHALIC - Eye Exam Eye Exam: EOMI, Normal appearance, PERRL Pupil Exam: NORMAL ACCOMODATION, PERRL - ENT Exam ENT Exam: Mucous Membranes Moist, Normal Exam - Neck Exam Neck Exam: Full ROM, Normal Inspection. absent: Lymphadenopathy - Respiratory Exam Respiratory Exam: Decreased Breath Sounds - Cardiovascular Exam Cardiovascular Exam: REGULAR RHYTHM, +S1, +S2 - GI/Abdominal Exam GI & Abdominal Exam: Soft, Diminished Bowel Sounds - Rectal Exam Rectal Exam: Deferred
[2017-07-18] MEDS: Enoxaparin 40 mg Syringe SC SCH (21:55)
--- NOTE | 2017-07-19 09:22 | PN ---
DATE: 07/19/2017 TIME OF EVALUATION: 7:10 a.m. NEUROLOGICAL PROBLEM: Possible cervical myelopathy. PHYSICAL EXAMINATION: VITAL SIGNS: Blood pressure 162/79, mean artery pressure of 106, respiratory rate 18, temperature 98.3 with the pulse rate 80. The patient is more awake, alert, and oriented to person, place, and time. No new syncopal attack or dizziness from the date of the admission. The patient feels a little better with hand tingling sensation. The examination is consistent with the cervical myelopathy. The patient did have MRI of the cervical spine to rule out cervical myelopathy. The MRI of the brain had been reviewed which showed multilevel degenerative disease with fish mouth appearance of vertebral body associating with evidence of mild cord compression. The patient stable with this presenting problem. At this point, I would like her to have cervical collar to avoid flexion as well as extension to secure her neck. The patient's condition being chronic history, I doubt the patient need extensive surgery to stabilize her neck her aging as well as other medical comorbidity stages. The patient will be followed closely even after the discharge from the hospital. The patient's condition has been extensively discussed with her. In near future, patient may need intubation. At that point, the patient does need intubation without flexion or extension of her neck in near future. Hayden Worthy MD [facility]
[2017-07-19] MEDS: Pantoprazole 40 mg EC Tab PO SCH (09:54)
[2017-07-19] MEDS: Azithromycin 500 MG in Sodium Chloride 0.9% 250 ML IVPB SCH (09:57)
[2017-07-19] MEDS ORDERED: Influenza Vaccine 60 mcg/0.5 mL SYR (4YR UP) IM ONE (10:00)
[2017-07-19] MEDS ORDERED: Pneumococcal 23-Valent Vaccine IM ONE (10:00)
--- NOTE | 2017-07-19 10:12 | CP.PCM.PN ---
Subjective - Date & Time of Evaluation Date of Evaluation: 07/19/17 Time of Evaluation: 10:00 - Subjective Subjective: no current chest pain. Blood pressure is elevated. Objective - Vital Signs/Intake and Output Vital Signs (last 24 hours): Temp Pulse Resp BP Pulse Ox 97.9 F 77 18 173/81 H 99 07/19/17 07:00 07/19/17 09:58 07/19/17 07:00 07/19/17 09:58 07/19/17 07:00 Intake and Output: 07/19/17 07/19/17 06:59 18:59 Intake Total 240 Balance 240 - Medications Medications: Current Medications Artificial Tears (Artificial Tears) 0 ml OU Q6H PRN PRN Reason: DRY EYES Aspirin (Ecotrin) 81 mg PO DAILY [facility] Last Admin: 07/19/17 09:54 Dose: Not Given Enoxaparin Sodium (Lovenox) 40 mg SC DAILY@2200 [facility] Last Admin: 07/18/17 21:55 Dose: 40 mg Hydralazine HCl (Apresoline) 25 mg PO BID [facility] Last Admin: 07/19/17 09:54 Dose: 25 mg Azithromycin 500 mg/ Sodium (Chloride) 250 mls @ 250 mls/hr IVPB DAILY [facility] Last Admin: 07/19/17 09:57 Dose: 250 mls/hr Ceftriaxone Sodium 1 gm/ (Sodium Chloride) 100 mls @ 100 mls/hr IVPB Q24H [facility] Last Admin: 07/18/17 13:39 Dose: 100 mls/hr Lactulose (Enulose) 10 gm PO BID [facility] Last Admin: 07/19/17 10:03 Dose: Not Given Pantoprazole Sodium (Protonix Ec Tab) 40 mg PO DAILY [facility] Last Admin: 07/19/17 09:54 Dose: 40 mg Propranolol HCl (Inderal) 20 mg PO BID [facility] Last Admin: 07/19/17 09:54 Dose: 20 mg Rosuvastatin Calcium (Crestor) 10 mg PO HS [facility] Last Admin: 07/18/17 21:54 Dose: 10 mg Tramadol HCl (Ultram) 50 mg PO Q6 PRN PRN Reason: Pain, moderate (4-7) Last Admin: 07/18/17 16:31 Dose: 50 mg - Labs Labs: 07/16/17 14:45 07/16/17 14:45 - Constitutional Appears: Non-toxic - Head Exam Head Exam: NORMAL INSPECTION - Eye Exam Eye Exam: Normal appearance - ENT Exam ENT Exam: Mucous Membranes Moist - Neck Exam Neck Exam: Full ROM - Cardiovascular Exam Cardiovascular Exam: REGULAR RHYTHM - GI/Abdominal Exam GI & Abdominal Exam: Normal Bowel Sounds - Rectal Exam Rectal Exam: Deferred - Extremities Exam Extremities Exam: absent: Pedal Edema - Back Exam Back Exam: NORMAL INSPECTION - Neurological Exam Neurological Exam: Alert - Psychiatric Exam Psychiatric exam: Normal Affect - Skin Skin Exam: Normal Color Assessment and Plan (1) Uncontrolled hypertension Assessment & Plan: will incres Losartan to 100 mg daily. otherwise stable cardiovascular status Status: Acute
--- NOTE | 2017-07-19 12:52 | CP.PCM.PN ---
Subjective - Date & Time of Evaluation Date of Evaluation: 07/19/17 Time of Evaluation: 12:55 - Subjective Subjective: PGY2 Note for Dr. Demetrius Bowens; all management as per Dr. Demetrius Bowens Patient was seen and examined at bedside this AM; is requesting to go home either today or tomorrow; has no complaints denies fevers/chills, RAO, CP, SOB, abdominal pain, N/V/D, dysuria/freq/urg, or lower extremity pain/swelling. Objective - Vital Signs/Intake and Output Vital Signs (last 24 hours): Temp Pulse Resp BP Pulse Ox 97.9 F 77 18 173/81 H 99 07/19/17 07:00 07/19/17 09:58 07/19/17 07:00 07/19/17 09:58 07/19/17 07:00 Intake and Output: 07/19/17 07/19/17 06:59 18:59 Intake Total 240 Balance 240 - Medications Medications: Current Medications Artificial Tears (Artificial Tears) 0 ml OU Q6H PRN PRN Reason: DRY EYES Aspirin (Ecotrin) 81 mg PO DAILY [facility] Last Admin: 07/19/17 09:54 Dose: Not Given Enoxaparin Sodium (Lovenox) 40 mg SC DAILY@2200 [facility] Last Admin: 07/18/17 21:55 Dose: 40 mg Hydralazine HCl (Apresoline) 25 mg PO BID [facility] Last Admin: 07/19/17 09:54 Dose: 25 mg Azithromycin 500 mg/ Sodium (Chloride) 250 mls @ 250 mls/hr IVPB DAILY [facility] Last Admin: 07/19/17 09:57 Dose: 250 mls/hr Ceftriaxone Sodium 1 gm/ (Sodium Chloride) 100 mls @ 100 mls/hr IVPB Q24H [facility] Last Admin: 07/18/17 13:39 Dose: 100 mls/hr Lactulose (Enulose) 10 gm PO BID [facility] Last Admin: 07/19/17 10:03 Dose: Not Given Losartan Potassium (Cozaar) 100 mg PO DAILY [facility] Pantoprazole Sodium (Protonix Ec Tab) 40 mg PO DAILY [facility] Last Admin: 07/19/17 09:54 Dose: 40 mg Propranolol HCl (Inderal) 20 mg PO BID [facility] Last Admin: 07/19/17 09:54 Dose: 20 mg Rosuvastatin Calcium (Crestor) 10 mg PO HS [facility] Last Admin: 07/18/17 21:54 Dose: 10 mg Tramadol HCl (Ultram) 50 mg PO Q6 PRN PRN Reason: Pain, moderate (4-7) Last Admin: 07/18/17 16:31 Dose: 50 mg - Labs Labs: 07/16/17 14:45 07/16/17 14:45 - Constitutional Appears: Non-toxic - Head Exam Head Exam: ATRAUMATIC - Eye Exam Eye Exam: EOMI, Normal appearance - ENT Exam ENT Exam: Mucous Membranes Moist - Neck Exam Neck Exam: Full ROM - Respiratory Exam Respiratory Exam: Clear to Ausculation Bilateral - Cardiovascular Exam Cardiovascular Exam: REGULAR RHYTHM, Murmur - GI/Abdominal Exam GI & Abdominal Exam: Soft, Normal Bowel Sounds. absent: Tenderness - Extremities Exam Extremities Exam: Full ROM. absent: Calf Tenderness - Back Exam Back Exam: NORMAL INSPECTION. absent: CVA tenderness (L), CVA tenderness (R) - Neurological Exam Neurological Exam: Alert, Awake, Oriented x3 - Psychiatric Exam Psychiatric exam: Normal Affect - Skin Skin Exam: Warm Assessment and Plan - Assessment and Plan (Free Text) Assessment: 81yo F admitted for near syncope/dizziness Near Syncope/Dizziness -MRI head showed chronic lacunar infarct and greater than average volume loss for age; patient is ANOx3 and able to communicate all needs appropriately -Carotid dopplers negative for stenosis -Cervical Spine MRI showed cervical stenosis with degenerative changes; patient wearing neck brace -patient states she feels -f/u echo done today -control BP -Cardiology on Board; Dr. Petty; appreciate recs; thank you for your help Uncontrolled HTN -will increase losartan to 100mg daily as per cardiology -will add amlodipine as well 10mg and d/c hydralazine as it needs frequent dosing as outpatient and only works for ~6hours when taken -cautious lowering of BP in elderly female with long standing HTN as it can precipitate stroke Proph Lovenox Protonix Out of Bed as tolerated after echo is read patient should be good to go home with new BP meds all management as per Dr. Demetrius Bowens
[2017-07-19] MEDS: Enoxaparin 40 mg Syringe SC SCH (21:31)
--- NOTE | 2017-07-20 08:48 | CP.PCM.PN ---
Subjective - Date & Time of Evaluation Date of Evaluation: 07/20/17 Time of Evaluation: 07:05 - Subjective Subjective: PGY2 Medicine Note for Dr. Demetrius Bowens. Patient was seen and examined at bedside this AM; She would like to go home today or tomorrow once her blood pressure is controlled. She reported mild headache this morning, and BP was measured at 207/99. Her headache resolved when better control of BP was obtained. 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 Denies fevers/chills, CP, SOB, abdominal pain, N/V/D, dysuria/freq/urg, or lower extremity pain/swelling. Objective - Vital Signs/Intake and Output Vital Signs (last 24 hours): Temp Pulse Resp BP Pulse Ox 98 F 83 20 182/76 H 98 07/19/17 23:40 07/20/17 08:45 07/19/17 23:40 07/20/17 08:45 07/19/17 23:40 Intake and Output: 07/20/17 07/20/17 06:59 18:59 Intake Total 120 Balance 120 - Medications Medications: Current Medications Amlodipine Besylate (Norvasc) 10 mg PO DAILY [facility] Artificial Tears (Artificial Tears) 0 ml OU Q6H PRN PRN Reason: DRY EYES Aspirin (Ecotrin) 81 mg PO DAILY [facility] Last Admin: 07/19/17 09:54 Dose: Not Given Enoxaparin Sodium (Lovenox) 40 mg SC DAILY@2200 [facility] Last Admin: 07/19/17 21:31 Dose: 40 mg Azithromycin 500 mg/ Sodium (Chloride) 250 mls @ 250 mls/hr IVPB DAILY [facility] Last Admin: 07/19/17 09:57 Dose: 250 mls/hr Ceftriaxone Sodium 1 gm/ (Sodium Chloride) 100 mls @ 100 mls/hr IVPB Q24H [facility] Last Admin: 07/19/17 14:14 Dose: 100 mls/hr Lactulose (Enulose) 10 gm PO BID [facility] Last Admin: 07/19/17 17:59 Dose: Not Given Losartan Potassium (Cozaar) 100 mg PO DAILY [facility] Pantoprazole Sodium (Protonix Ec Tab) 40 mg PO DAILY [facility] Last Admin: 07/19/17 09:54 Dose: 40 mg Propranolol HCl (Inderal) 20 mg PO BID [facility] Last Admin: 07/19/17 17:59 Dose: 20 mg Rosuvastatin Calcium (Crestor) 10 mg PO HS [facility] Last Admin: 07/19/17 21:31 Dose: 10 mg Tramadol HCl (Ultram) 50 mg PO Q6 PRN PRN Reason: Pain, moderate (4-7) Last Admin: 07/19/17 13:51 Dose: 50 mg - Labs Labs: 07/16/17 14:45 07/16/17 14:45 - Additional Findings Additional findings: - Constitutional Appears: Non-toxic - Head Exam Head Exam: ATRAUMATIC - Eye Exam Eye Exam: EOMI, Normal appearance - ENT Exam ENT Exam: Mucous Membranes Moist - Neck Exam Neck Exam: Full ROM - Respiratory Exam Respiratory Exam: Clear to Ausculation Bilateral - Cardiovascular Exam Cardiovascular Exam: REGULAR RHYTHM, Murmur - GI/Abdominal Exam GI & Abdominal Exam: Soft, Normal Bowel Sounds. absent: Tenderness - Extremities Exam Extremities Exam: Full ROM. absent: Calf Tenderness - Back Exam Back Exam: NORMAL INSPECTION. absent: CVA tenderness (L), CVA tenderness (R) - Neurological Exam Neurological Exam: Alert, Awake, Oriented x3 - Psychiatric Exam Psychiatric exam: Normal Affect - Skin Skin Exam: Warm Assessment and Plan - Assessment and Plan (Free Text) Assessment: 81yo F admitted for near syncope/dizziness Near Syncope/Dizziness -MRI head showed chronic lacunar infarct and greater than average volume loss for age; patient is ANOx3 and able to communicate all needs appropriately -Carotid dopplers negative for stenosis -Cervical Spine MRI showed cervical stenosis with degenerative changes; patient wearing neck brace -patient states she feels -f/u echo done today -control BP -Cardiology on Board; Dr. Petty; appreciate recs; thank you for your help Uncontrolled HTN 07/20: BP 207/99. One dose of IV Hydralazine 10mg given. Normalized to 163/64. Will continue to monitor. Headache resolved after IVP given. -will increase losartan to 100mg daily as per cardiology -will add amlodipine as well 10mg and d/c hydralazine as it needs frequent dosing as outpatient and only works for ~6hours when taken -cautious lowering of BP in elderly female with long standing HTN as it can precipitate stroke Electrolyte Imbalance HypoK - K3.3 - Kcl 40 x2 HypoP - P 1.6 - Neutraphos x3 Proph Lovenox Protonix Out of Bed as tolerated after echo is read patient should be good to go home with new BP meds all management as per Dr. Demetrius Bowens
[2017-07-20] MEDS: Pantoprazole 40 mg EC Tab PO SCH (09:09)
[2017-07-20] MEDS: Azithromycin 500 MG in Sodium Chloride 0.9% 250 ML IVPB SCH (09:24)
[2017-07-20 11:14] LABS: BASO % 0.8 % (0.0-2.0); EOS % 1.3 % (0.0-4.0); HEMOGLOBIN 11.2 g/dL (11.0-16.0); LYMPH # 1.5 K/uL (1.0-4.3); LYMPH % 41.8 % (20.0-40.0); MEAN CELL VOLUME 77.3 fL (81.0-99.0); MEAN CORPUSCULAR HGB CONC 33.6 g/dL (33.0-37.0); MEAN PLATELET VOLUME 8.9 fL (7.2-11.7); MONO # 0.4 K/uL (0.0-0.8); MONO % 11.4 % (0.0-10.0); NEUT # 1.6 K/uL (1.8-7.0); NEUT % 44.7 % (50.0-75.0); NRBC % 0.1 % (0.0-2.0); RBC 4.3 Mil/uL (3.80-5.20); RED CELL DISTRIBUTION WIDTH 18.7 % (11.5-14.5); WHITE BLOOD COUNT 3.6 K/uL (4.8-10.8)
[2017-07-20 11:29] LABS: ALB/GLOB RATIO 1.1 (1.0-2.1); ALBUMIN 3.8 g/dL (3.5-5.0); ALT/SGPT 26 U/L (9-52); AST/SGOT 36 U/L (14-36); BLOOD UREA NITROGEN 17 mg/dL (7-17); CALCIUM 9.3 mg/dl (8.6-10.4); GFR AFRICAN-AMERICAN > 60; GFR NON-AFRICAN AMERICAN 60; MAGNESIUM 1.7 mg/dL (1.6-2.3)
[2017-07-20] MEDS: Potassium Chloride 20 mEq/15 ml LIQ UD PO SCH ×2 (12:00→14:47)
[2017-07-20] MEDS: Potassium & Sodium Phosphate PO SCH ×2 (16:56→21:27)
--- NOTE | 2017-07-20 18:52 | CP.PCM.PN ---
Subjective - Date & Time of Evaluation Date of Evaluation: 07/20/17 Time of Evaluation: 12:20 - Subjective Subjective: clinically same Objective - Vital Signs/Intake and Output Vital Signs (last 24 hours): Temp Pulse Resp BP Pulse Ox 97.8 F 79 18 153/84 H 98 07/20/17 15:10 07/20/17 15:10 07/20/17 15:10 07/20/17 15:10 07/20/17 15:10 Intake and Output: 07/20/17 07/20/17 06:59 18:59 Intake Total 120 800 Balance 120 800 - Medications Medications: Current Medications Amlodipine Besylate (Norvasc) 10 mg PO DAILY [facility] Last Admin: 07/20/17 09:09 Dose: 10 mg Artificial Tears (Artificial Tears) 0 ml OU Q6H PRN PRN Reason: DRY EYES Aspirin (Ecotrin) 81 mg PO DAILY [facility] Last Admin: 07/20/17 09:09 Dose: Not Given Azithromycin (Zithromax) 500 mg PO DAILY [facility] Enoxaparin Sodium (Lovenox) 40 mg SC DAILY@2200 [facility] Last Admin: 07/19/17 21:31 Dose: 40 mg Hydralazine HCl (Apresoline) 50 mg PO Q8 [facility] Last Admin: 07/20/17 14:47 Dose: 50 mg Hydrochlorothiazide (Hydrodiuril) 25 mg PO DAILY [facility] Last Admin: 07/20/17 14:47 Dose: 25 mg Ceftriaxone Sodium 1 gm/ (Sodium Chloride) 100 mls @ 100 mls/hr IVPB Q24H [facility] Last Admin: 07/20/17 13:22 Dose: 100 mls/hr Lactulose (Enulose) 10 gm PO BID [facility] Last Admin: 07/20/17 16:59 Dose: Not Given Losartan Potassium (Cozaar) 100 mg PO DAILY [facility] Last Admin: 07/20/17 09:09 Dose: 100 mg Pantoprazole Sodium (Protonix Ec Tab) 40 mg PO DAILY [facility] Last Admin: 07/20/17 09:09 Dose: 40 mg Potassium Phos/Sodium Phos (Neutra-Phos) 1 pkt PO ACHS [facility] Stop: 07/21/17 07:31 Last Admin: 07/20/17 16:56 Dose: 1 pkt Propranolol HCl (Inderal) 20 mg PO BID [facility] Last Admin: 07/20/17 16:59 Dose: 20 mg Rosuvastatin Calcium (Crestor) 10 mg PO HS [facility] Last Admin: 07/19/17 21:31 Dose: 10 mg Tramadol HCl (Ultram) 50 mg PO Q6 PRN PRN Reason: Pain, moderate (4-7) Last Admin: 07/20/17 12:05 Dose: 50 mg - Labs Labs: 07/20/17 11:08 07/20/17 11:08 - Constitutional Appears: Well - Head Exam Head Exam: ATRAUMATIC, NORMAL INSPECTION, NORMOCEPHALIC - Eye Exam Eye Exam: EOMI, Normal appearance, PERRL Pupil Exam: NORMAL ACCOMODATION, PERRL - ENT Exam ENT Exam: Mucous Membranes Moist, Normal Exam - Neck Exam Neck Exam: Full ROM, Normal Inspection. absent: Lymphadenopathy - Respiratory Exam Respiratory Exam: Decreased Breath Sounds - Cardiovascular Exam Cardiovascular Exam: REGULAR RHYTHM, +S1, +S2 - GI/Abdominal Exam GI & Abdominal Exam: Soft, Diminished Bowel Sounds - Rectal Exam Rectal Exam: Deferred
[2017-07-20] MEDS: Enoxaparin 40 mg Syringe SC SCH (21:26)
[2017-07-20] MEDS ORDERED: Potassium Chloride 20 mEq ER Tab PO STA (23:45)
[2017-07-21] MEDS: Potassium & Sodium Phosphate PO SCH (08:00)
[2017-07-21] MEDS: Pantoprazole 40 mg EC Tab PO SCH (14:56)
[2017-07-21] MEDS ORDERED: Albuterol-Ipratrop 3 mg / 0.5 (3 ml) UD INH STA (17:04)
--- NOTE | 2017-07-21 18:08 | CP.PCM.PN ---
Subjective - Date & Time of Evaluation Date of Evaluation: 07/21/17 Time of Evaluation: 12:00 - Subjective Subjective: clinically same Objective - Vital Signs/Intake and Output Vital Signs (last 24 hours): Temp Pulse Resp BP Pulse Ox 98.5 F 97 H 20 149/78 96 07/21/17 15:41 07/21/17 17:09 07/21/17 15:41 07/21/17 17:09 07/21/17 15:41 Intake and Output: 07/21/17 07/21/17 06:59 18:59 Intake Total 440 Balance 440 - Medications Medications: Current Medications Amlodipine Besylate (Norvasc) 10 mg PO DAILY [facility] Last Admin: 07/21/17 10:25 Dose: 10 mg Artificial Tears (Artificial Tears) 0 ml OU Q6H PRN PRN Reason: DRY EYES Aspirin (Ecotrin) 81 mg PO DAILY [facility] Last Admin: 07/21/17 10:24 Dose: Not Given Azithromycin (Zithromax) 500 mg PO DAILY [facility] Last Admin: 07/21/17 10:25 Dose: 500 mg Enoxaparin Sodium (Lovenox) 40 mg SC DAILY@2200 [facility] Last Admin: 07/20/17 21:26 Dose: 40 mg Hydralazine HCl (Apresoline) 50 mg PO Q8 [facility] Last Admin: 07/21/17 14:54 Dose: 50 mg Hydrochlorothiazide (Hydrodiuril) 25 mg PO DAILY [facility] Last Admin: 07/21/17 10:24 Dose: 25 mg Ceftriaxone Sodium 1 gm/ (Sodium Chloride) 100 mls @ 100 mls/hr IVPB Q24H [facility] Last Admin: 07/21/17 14:42 Dose: 100 mls/hr Lactulose (Enulose) 10 gm PO BID [facility] Last Admin: 07/21/17 17:08 Dose: Not Given Losartan Potassium (Cozaar) 100 mg PO DAILY [facility] Last Admin: 07/21/17 10:23 Dose: 100 mg Pantoprazole Sodium (Protonix Ec Tab) 40 mg PO DAILY [facility] Last Admin: 07/21/17 14:56 Dose: 40 mg Propranolol HCl (Inderal) 20 mg PO BID [facility] Last Admin: 07/21/17 17:08 Dose: 20 mg Rosuvastatin Calcium (Crestor) 10 mg PO HS [facility] Last Admin: 07/20/17 21:27 Dose: 10 mg Tramadol HCl (Ultram) 50 mg PO Q6 PRN PRN Reason: Pain, moderate (4-7) Last Admin: 07/21/17 13:14 Dose: 50 mg - Labs Labs: 07/20/17 11:08 07/20/17 11:08 - Constitutional Appears: Well - Head Exam Head Exam: ATRAUMATIC, NORMAL INSPECTION, NORMOCEPHALIC - Eye Exam Eye Exam: EOMI, Normal appearance, PERRL Pupil Exam: NORMAL ACCOMODATION, PERRL - ENT Exam ENT Exam: Mucous Membranes Moist, Normal Exam - Neck Exam Neck Exam: Full ROM, Normal Inspection. absent: Lymphadenopathy - Respiratory Exam Respiratory Exam: Decreased Breath Sounds - Cardiovascular Exam Cardiovascular Exam: REGULAR RHYTHM, +S1, +S2 - GI/Abdominal Exam GI & Abdominal Exam: Soft, Diminished Bowel Sounds - Rectal Exam Rectal Exam: Deferred
[2017-07-21] MEDS: Enoxaparin 40 mg Syringe SC SCH (21:23)
[2017-07-22] MEDS: Pantoprazole 40 mg EC Tab PO SCH (09:56)
--- NOTE | 2017-07-22 13:59 | CP.PCM.PN ---
Subjective - Date & Time of Evaluation Date of Evaluation: 07/22/17 Time of Evaluation: 13:40 - Subjective Subjective: clinically same Objective - Vital Signs/Intake and Output Vital Signs (last 24 hours): Temp Pulse Resp BP Pulse Ox 99.3 F 86 20 147/83 96 07/22/17 08:00 07/22/17 08:00 07/22/17 08:00 07/22/17 08:00 07/22/17 08:00 Intake and Output: 07/22/17 07/22/17 06:59 18:59 Intake Total 240 Balance 240 - Medications Medications: Current Medications Acetaminophen (Tylenol 325mg Tab) 650 mg PO Q6 PRN PRN Reason: Fever >100.4 F Amlodipine Besylate (Norvasc) 10 mg PO DAILY [facility] Last Admin: 07/22/17 09:56 Dose: 10 mg Artificial Tears (Artificial Tears) 0 ml OU Q6H PRN PRN Reason: DRY EYES Azithromycin (Zithromax) 500 mg PO DAILY [facility] Last Admin: 07/22/17 09:56 Dose: 500 mg Enoxaparin Sodium (Lovenox) 40 mg SC DAILY@2200 [facility] Last Admin: 07/21/17 21:23 Dose: 40 mg Hydralazine HCl (Apresoline) 50 mg PO Q8 [facility] Last Admin: 07/22/17 06:04 Dose: 50 mg Hydrochlorothiazide (Hydrodiuril) 25 mg PO DAILY [facility] Last Admin: 07/22/17 09:57 Dose: 25 mg Ceftriaxone Sodium 1 gm/ (Sodium Chloride) 100 mls @ 100 mls/hr IVPB Q24H [facility] Last Admin: 07/21/17 14:42 Dose: 100 mls/hr Lactulose (Enulose) 10 gm PO BID [facility] Last Admin: 07/22/17 10:00 Dose: Not Given Losartan Potassium (Cozaar) 100 mg PO DAILY [facility] Last Admin: 07/22/17 09:57 Dose: 100 mg Pantoprazole Sodium (Protonix Ec Tab) 40 mg PO DAILY [facility] Last Admin: 07/22/17 09:56 Dose: 40 mg Propranolol HCl (Inderal) 20 mg PO BID [facility] Last Admin: 07/22/17 09:57 Dose: 20 mg Rosuvastatin Calcium (Crestor) 10 mg PO HS [facility] Last Admin: 07/21/17 21:22 Dose: 10 mg Tramadol HCl (Ultram) 50 mg PO Q6 PRN PRN Reason: Pain, moderate (4-7) Last Admin: 07/21/17 19:14 Dose: 50 mg - Labs Labs: 07/20/17 11:08 07/20/17 11:08 - Constitutional Appears: Well - Head Exam Head Exam: ATRAUMATIC, NORMAL INSPECTION, NORMOCEPHALIC - Eye Exam Eye Exam: EOMI, Normal appearance, PERRL Pupil Exam: NORMAL ACCOMODATION, PERRL - ENT Exam ENT Exam: Mucous Membranes Moist, Normal Exam - Neck Exam Neck Exam: Full ROM, Normal Inspection. absent: Lymphadenopathy - Respiratory Exam Respiratory Exam: Decreased Breath Sounds - Cardiovascular Exam Cardiovascular Exam: REGULAR RHYTHM, +S1, +S2 - GI/Abdominal Exam GI & Abdominal Exam: Soft, Diminished Bowel Sounds - Rectal Exam Rectal Exam: Deferred
[2017-07-22] MEDS ORDERED: guaiFENesin DM 200 mg-20 mg/10 ml UD PO PRN (15:00)
[2017-07-22] MEDS: Enoxaparin 40 mg Syringe SC SCH (21:52)
[2017-07-22] MEDS ORDERED: Potassium Chloride 20 mEq ER Tab PO STA (22:02)
[2017-07-23 07:48] LABS: BASO % 0.7 % (0.0-2.0); EOS % 0.1 % (0.0-4.0); HEMOGLOBIN 12.2 g/dL (11.0-16.0); LYMPH # 0.7 K/uL (1.0-4.3); LYMPH % 24.7 % (20.0-40.0); MEAN CELL VOLUME 76.4 fL (81.0-99.0); MEAN CORPUSCULAR HEMOGLOBIN 25.8 pg (27.0-31.0); MEAN CORPUSCULAR HGB CONC 33.7 g/dL (33.0-37.0); MEAN PLATELET VOLUME 8.9 fL (7.2-11.7); MONO # 0.4 K/uL (0.0-0.8); MONO % 14.2 % (0.0-10.0); NEUT # 1.7 K/uL (1.8-7.0); NEUT % 60.3 % (50.0-75.0); NRBC % 0.6 % (0.0-2.0); RBC 4.74 Mil/uL (3.80-5.20); WHITE BLOOD COUNT 2.8 K/uL (4.8-10.8)
[2017-07-23 07:50] LABS: ALB/GLOB RATIO 1.1 (1.0-2.1); CALCIUM 8.8 mg/dl (8.6-10.4); MAGNESIUM 1.6 mg/dL (1.6-2.3)
[2017-07-23] MEDS: Pantoprazole 40 mg EC Tab PO SCH (09:29)
--- NOTE | 2017-07-23 15:35 | CP.PCM.PN ---
Subjective - Date & Time of Evaluation Date of Evaluation: 07/23/17 Time of Evaluation: 15:30 - Subjective Subjective: PT CLEARED FOR D/C HOME TODAY PER DR. Demetrius HOANG WITH NEW BLOOD PRESSURE MEDICATIONS. DISCUSSED ALL D/C INFORMATION, F/U APPTS, AND NEW RX AT LENGTH WITH THE PT. SHE VERBALIZES UNDERSTANDING OF ALL INFORMATION GIVEN. WILL CONTINUE ZITHROMAX FOR 5 DAYS. TO F/U WITH PMD, DR. VÁSQUEZ, IN THE OFFICE IN 5- 7 DAYS. NO FURTHER ORDERS; ;FAMILY TO PICK HER UP. -FOLLOW UP WITH DR. VÁSQUEZ IN HER OFFICE WITHIN 5-7 DAYS OF DISCHARGE---CALL THE OFFICE TOMORROW TO MAKE YOUR APPOINTMENT. -FOLLOW UP WITH DR. FALCON (NEUROLOGIST) IF YOUR NECK PROBLEM GETS WORSE. -FOLLOW UP WITH DR. PHIPPS (DOCUMENTATION SPEC) IN HIS OFFICE WITHIN 7-10 DAYS OF DISCHARGE---CALL THE OFFICE TOMORROW TO MAKE YOUR APPOINTMENT. -CONTINUE YOUR HOME MEDICATIONS USUAL. -NEW PRESCRIPTIONS INCLUDE: 1) ZITHROMAX (AN ANTIBIOTIC FOR YOUR COUGH) TAKE 1 TABLE BY MOUTH ONCE A DAY ( START TAKING TOMORROW, 07/24/17) FOR 5 DAYS. 2) ROBITUSSIN (COUGH SYRUP) TAKE 3 TIMES A DAY ONLY OF YOU NEED IT FOR COUGH. 3) ASPIRIN (TO PROTECT YOUR HEART) 81 MG TAKE 1 TABLET BY MOUTH ONCE A DAY. 4) AMLODIPINE (FOR YOUR BLOOD PRESSURE) 5 MG TAKE 1 TABLET BY MOUTH ONCE A DAY. 5) LOSARTAN (FOR BLOOD PRESSURE) 100 MG TAKE 1 TABLET BY MOUTH ONCE A DAY. 6) HYDROCHLOROTHIAZIDE (DIURETIC FOR BLOOD PRESSURE) 25 MG TAKE 1 TABLET BY MOUTH ONCE A DAY. 7) HYDRALAZINE (FOR YOUR HEART AND BLOOD PRESSURE) 50 MG TAKE 1 TABLET BY MOUTH EVERY 8 HOURS (EXAMPLE: 7AM, 3PM, 11PM). -FOR FURTHER CONCERNS OR QUESTIONS, CONTACT DR. Demetrius HOANG OR DR. VÁSQUEZ. Objective - Vital Signs/Intake and Output Vital Signs (last 24 hours): Temp Pulse Resp BP Pulse Ox 98.9 F 110 H 18 135/59 L 96 07/23/17 07:20 07/23/17 07:20 07/23/17 07:20 07/23/17 07:20 07/23/17 07:20 Intake and Output: 07/23/17 07/23/17 06:59 18:59 Intake Total 240 350 Balance 240 350 - Medications Medications: Current Medications Acetaminophen (Tylenol 325mg Tab) 650 mg PO Q6 PRN PRN Reason: Fever >100.4 F Last Admin: 07/22/17 16:02 Dose: 650 mg Amlodipine Besylate (Norvasc) 10 mg PO DAILY [facility] Last Admin: 07/23/17 09:29 Dose: 10 mg Artificial Tears (Artificial Tears) 0 ml OU Q6H PRN PRN Reason: DRY EYES Azithromycin (Zithromax) 500 mg PO DAILY [facility] Last Admin: 07/23/17 09:28 Dose: 500 mg Enoxaparin Sodium (Lovenox) 40 mg SC DAILY@2200 [facility] Last Admin: 07/22/17 21:52 Dose: 40 mg Guaifenesin/Dextromethorphan (Robitussin Dm) 10 ml PO TID PRN PRN Reason: Cough and congestion Hydralazine HCl (Apresoline) 50 mg PO Q8 [facility] Last Admin: 07/23/17 13:02 Dose: 50 mg Hydrochlorothiazide (Hydrodiuril) 25 mg PO DAILY [facility] Last Admin: 07/23/17 09:29 Dose: 25 mg Lactulose (Enulose) 10 gm PO BID [facility] Last Admin: 07/23/17 09:30 Dose: 10 gm Losartan Potassium (Cozaar) 100 mg PO DAILY [facility] Last Admin: 07/23/17 09:29 Dose: 100 mg Pantoprazole Sodium (Protonix Ec Tab) 40 mg PO DAILY [facility] Last Admin: 07/23/17 09:29 Dose: 40 mg Propranolol HCl (Inderal) 20 mg PO BID [facility] Last Admin: 07/23/17 09:28 Dose: 20 mg Rosuvastatin Calcium (Crestor) 10 mg PO HS [facility] Last Admin: 07/22/17 21:52 Dose: 10 mg Tramadol HCl (Ultram) 50 mg PO Q6 PRN PRN Reason: Pain, moderate (4-7) Last Admin: 07/23/17 05:24 Dose: 50 mg - Labs Labs: 07/23/17 07:10 07/23/17 07:10
[2017-07-23 15:57] VITALS: BP 135/65; PULSE 82; RESP 20; TEMP 98.6; O2SAT 98
--- NOTE | 2017-07-23 17:41 | CP.PCM.PN ---
Subjective - Date & Time of Evaluation Date of Evaluation: 07/23/17 Time of Evaluation: 13:20 - Subjective Subjective: clinically same Objective - Vital Signs/Intake and Output Vital Signs (last 24 hours): Temp Pulse Resp BP Pulse Ox 98.6 F 82 20 135/65 98 07/23/17 15:56 07/23/17 15:56 07/23/17 15:56 07/23/17 15:56 07/23/17 15:56 Intake and Output: 07/23/17 07/23/17 06:59 18:59 Intake Total 240 350 Balance 240 350 - Labs Labs: 07/23/17 07:10 07/23/17 07:10 - Constitutional Appears: Well - Head Exam Head Exam: ATRAUMATIC, NORMAL INSPECTION, NORMOCEPHALIC - Eye Exam Eye Exam: EOMI, Normal appearance, PERRL Pupil Exam: NORMAL ACCOMODATION, PERRL - ENT Exam ENT Exam: Mucous Membranes Moist, Normal Exam - Neck Exam Neck Exam: Full ROM, Normal Inspection. absent: Lymphadenopathy - Respiratory Exam Respiratory Exam: Decreased Breath Sounds - Cardiovascular Exam Cardiovascular Exam: REGULAR RHYTHM, +S1, +S2 - GI/Abdominal Exam GI & Abdominal Exam: Soft, Diminished Bowel Sounds - Rectal Exam Rectal Exam: Deferred
== END 2017-07-23 16:42 | disposition home or self-care (01) | DRG 312 ==
LOC: C.ER 11:46 → C.9E 16:10 → C.6T 18:08
PROVIDERS: ADMIT Internal Medicine Nephrology; ATTEND Internal Medicine Nephrology
DX: R55 Syncope and collapse (principal); G62.9 Polyneuropathy, unspecified; M50.00 Cervical disc disorder with myelopathy, unspecified cervical region; I10 Essential (primary) hypertension; M48.02 Spinal stenosis, cervical region; I16.9 Hypertensive crisis, unspecified; H92.03 Otalgia, bilateral; E87.6 Hypokalemia; M19.90 Unspecified osteoarthritis, unspecified site; E78.00 Pure hypercholesterolemia, unspecified; H40.9 Unspecified glaucoma; J34.2 Deviated nasal septum; Z90.49 Acquired absence of other specified parts of digestive tract; Z86.73 Personal history of transient ischemic attack (TIA), and cerebral infarction without residual deficits; Z86.010 Personal history of colon polyps

== ENCOUNTER 2017-09-21 09:40 | Emergency (ER) | payer OTHER ==
[2017-09-21 09:50] VITALS: TEMP 98.5; O2SAT 97
--- NOTE | 2017-09-21 10:19 | C.PDOC ---
History Of Present Illness 81 year old female presents to the ED c/o new onset lower back pain for the past 5 days. Patient reports her pain occasionally radiates circumstantially to her B/L lower abdomen. Patient states current intensity of the pain unchanged, worsens with any kind of movement. Patient reports no relief with 2 doses of ultram yesterday. Patient denies hx of chronic back pain, trauma, GI or UTI symptoms, leg weakness, numbness, saddle anesthesia. Time Seen by Provider: 09/21/17 10:02 Chief Complaint (Nursing): Back Pain History Per: Patient History/Exam Limitations: no limitations Onset/Duration Of Symptoms: Days Current Symptoms Are (Timing): Still Present Quality Of Discomfort: "Pain" Severity: Moderate Previous Symptoms: Back Pain Exacerbating Factor(s): Movement Recent travel outside of the [place]: No Additional History Per: Patient Past Medical History Reviewed: Historical Data, Nursing Documentation, Vital Signs Vital Signs: Last Vital Signs Temp 98.5 F 09/21/17 09:49 Pulse 86 09/21/17 09:49 Resp 20 09/21/17 09:49 BP 188/77 H 09/21/17 09:49 Pulse Ox 97 09/21/17 13:15 - Medical History PMH: Arthritis, Colonic Polyps, Diverticulitis, HTN Denies: Hypercholesterolemia (denies) Surgical History: Appendectomy, Endoscopy - [facility] Procedures CLOSED ENDOSCOPIC BIOPSY OF LARGE INTESTINE (10/21/13) Family History: States: Unknown Family Hx - Social History Hx Tobacco Use: No Hx Alcohol Use: No Hx Substance Use: No - Immunization History Hx Tetanus Toxoid Vaccination: No Hx Influenza Vaccination: No Hx Pneumococcal Vaccination: No Review Of Systems Constitutional: Negative for: Fever, Chills Cardiovascular: Negative for: Chest Pain Respiratory: Negative for: Shortness of Breath Gastrointestinal: Negative for: Vomiting, Abdominal Pain, Diarrhea Genitourinary: Negative for: Dysuria, Incontinence Musculoskeletal: Positive for: Back Pain. Negative for: Leg Pain Skin: Negative for: Rash Neurological: Negative for: Weakness, Numbness Physical Exam - Physical Exam Appears: Non-toxic, In Acute Distress Skin: Normal Color, Warm, Dry Head: Atraumatic, Normacephalic Eye(s): bilateral: Normal Inspection Chest: Symmetrical Cardiovascular: Rhythm Regular, No Murmur Respiratory: Normal Breath Sounds, No Rales, No Rhonchi, No Wheezing Gastrointestinal/Abdominal: Soft, No Tenderness, No Guarding, No Rebound Back: Paraspinal Tenderness (B/L paravertebral spasm with local tenderness), Other (Lower back pain with ROM) Extremity: Normal ROM, No Tenderness, Capillary Refill (< 2 seconds), No Swelling Pulses: Left Dorsalis Pedis: Normal, Right Dorsalis Pedis: Normal Neurological/Psych: Oriented x3, Normal Motor, Normal Sensation, Other (No focal deficits) Gait: Steady ED Course And Treatment - Laboratory Results Result Diagrams: 09/21/17 10:36 09/21/17 10:36 O2 Sat by Pulse Oximetry: 97 (On RA) Pulse Ox Interpretation: Normal - Other Rad LS SPINE X-Ray: Interpreted by Me (NEG) - CT Scan/US CT abd/pelvis Other Rad Studies (CT/US): Read By Radiologist, Radiology Report Reviewed CT/US Interpretation: PROCEDURE: CT Abdomen and Pelvis with contrast. HISTORY : BACK, abd pain. COMPARISON: None. TECHNIQUE: Contrast dose: 100 mL Visipaque 320. Radiation dose: Total exam DLP = 787.36 mGy-cm. This CT exam was performed using one or more of the following dose reduction techniques: Automated exposure control, adjustment of the mA and/or kV according to patient size, and/or use of iterative reconstruction technique. FINDINGS: LOWER THORAX : Unremarkable. LIVER: Unremarkable. No gross lesion or ductal dilatation. GALLBLADDER AND BILE DUCTS: Unremarkable. Cholelithiasis. No mural thickening or pericholecystic fluid. PANCREAS: Unremarkable. No gross lesion or ductal dilatation. SPLEEN: Unremarkable. ADRENALS: Unremarkable. No mass. KIDNEYS AND URETERS: Multiple small bilateral renal cysts, largest upper pole right kidney, 2.1 cm. 5 mm nonobstructing calcification upper pole right kidney, possibly vascular versus collecting system. No hydronephrosis. VASCULATURE: Unremarkable. No aortic aneurysm. BOWEL: No bowel obstruction. No abnormal bowel loops. APPENDIX: Not identified. PERITONEUM: Ventral hernia containing nonobstructed large and small bowel. 2 smaller supraumbilical ventral hernias containing only mesenteric. LYMPH NODES: Unremarkable. No enlarged lymph nodes. BLADDER: Unremarkable. REPRODUCTIVE: Posterior subserosal fundal uterine fibroid, 3.9 cm. BONES: No acute fracture. Grade 1 anterolisthesis L4-5, without accompanying spondylolysis. OTHER FINDINGS: None. IMPRESSION: No acute abnormality. Fundal uterine fibroid. Nonobstructing 5 mm right upper pole renal calcification, possibly vascular. Multiple small bilateral renal cysts. Cholelithiasis without evidence cholecystitis. Nevertheless, consider further evaluation with ultrasound examination if clinical situation warrants consideration of cholecystitis. Progress - Re-Evaluation Re-evaluation Note: 09/21/17 11:06 SP MEDS FEELS IMPROVE. PENDING CT 09/21/17 13:11 FEELS BETTER COMPARED TO PRIOR. AMBUL WO DIFF. CT NO ACUTE FINDINGS - Data Reviewed Data Reviewed: Lab, Diagnostic imaging Medical Decision Making Medical Decision Making: Impression: new onset lower back pain Plan: * X Ray * Labs * Pain medication Disposition Counseled Patient/Family Regarding: Studies Performed, Diagnosis, Need For Followup, Rx Given - Disposition Referrals: YOUR,PMD [Other] Disposition: HOME/ ROUTINE Disposition Time: 13:11 Condition: IMPROVED Prescriptions: Acetaminophen [Tylenol Extra Strength] 2 tab PO Q6 #30 tablet Cyclobenzaprine [Flexeril] 5 mg PO TID #12 tab Ibuprofen [Motrin] 400 mg PO QID #12 tab Lidocaine 5% [Lidoderm] 1 ea TD PRN PRN #10 patch PRN Reason: Pain, Moderate (4-7) Instructions: Low Back Pain (DC) Forms: [facility] (Polish) - Clinical Impression Clinical Impression: Low back pain, Abdominal pain - Scribe Statement The provider has reviewed the documentation as recorded by the Scribe Sahil Echols All medical record entries made by the Scribe were at my direction and personally dictated by me. I have reviewed the chart and agree that the record accurately reflects my personal performance of the history, physical exam, medical decision making, and the department course for this patient. I have also personally directed, reviewed, and agree with the discharge instructions and disposition.
[2017-09-21] MEDS ORDERED: Lidocaine 5% Patch TD STA (10:30)
[2017-09-21 10:43] LABS: BASO % 0.4 % (0.0-2.0); EOS % 0.1 % (0.0-4.0); LYMPH # 1.5 K/uL (1.0-4.3); LYMPH % 21.1 % (20.0-40.0); MEAN CORPUSCULAR HEMOGLOBIN 26.2 pg (27.0-31.0); MEAN CORPUSCULAR HGB CONC 33.5 g/dL (33.0-37.0); MEAN PLATELET VOLUME 8.1 fL (7.2-11.7); MONO # 0.6 K/uL (0.0-0.8); MONO % 7.9 % (0.0-10.0); NEUT # 5.1 K/uL (1.8-7.0); NEUT % 70.5 % (50.0-75.0); NRBC % 0.1 % (0.0-2.0); RBC 3.89 Mil/uL (3.80-5.20)
[2017-09-21 10:46] LABS: HEMOGLOBIN 10.2 g/dL (11.0-16.0); SQUAMOUS EPITHIAL 1 /hpf (0-5); URINE BILIRUBIN NEGATIVE (NEGATIVE); URINE BLOOD NEGATIVE (NEGATIVE); URINE CLARITY Clear (Clear); URINE COLOR Yellow (YELLOW); URINE GLUCOSE (UA) NORMAL (Normal); URINE HYALINE CAST 0-2 /lpf (0-2); URINE LEUKOCYTE ESTERASE NEG Leu/uL (Negative); URINE PROTEIN 2+ mg/dL (NEGATIVE); URINE UROBILINOGEN NORMAL mg/dL (0.2-1.0); WHITE BLOOD COUNT 7.2 K/uL (4.8-10.8)
[2017-09-21] MEDS ORDERED: Lidocaine 5% Patch TD ONE (10:50)
[2017-09-21 10:58] LABS: ALT/SGPT 23 U/L (9-52); AST/SGOT 33 U/L (14-36); BLOOD UREA NITROGEN 11 mg/dL (7-17); CALCIUM 8.9 mg/dl (8.6-10.4); GFR AFRICAN-AMERICAN > 60; GFR NON-AFRICAN AMERICAN > 60; LIPASE 65 U/L (23-300)
[2017-09-21] MEDS ORDERED: Potassium Chloride 20 mEq/15 ml LIQ UD PO STA (11:05)
[2017-09-21] MEDS ORDERED: Potassium Chloride 20 mEq ER Tab PO ONE (11:14)
[2017-09-21] MEDS ORDERED: Iodixanol 320 MG/ML 100 ML BOTTLE IV ONE (11:37)
--- NOTE | 2017-09-21 11:47 | RAD ---
PROCEDURE: Radiographs of the Lumbar Spine. HISTORY: Pain COMPARISON: No prior study available comparison FINDINGS: BONES: No evidence of acute compression fractures no retropulsed fragments. Vertebral bodies exhibit normal stature. . There is slight anterior subluxation L4 over L5. Remaining vertebral bodies otherwise exhibit normal alignment. Facets normally aligned. DISC SPACES: Mild multilevel degenerative spondylosis most notably affecting the L5-S1 and L4-L5 levels where there is disc space narrowing, endplate eburnation and anterolateral as well as small posterior osteophyte formation. Remaining levels exhibit minor posterior disc space narrowing, minor endplate eburnation and at anterolateral as well as small posterior osteophyte formation. Facet joints hypertrophic L5-S1 through the L2-L3 levels in decreasing order of severity Note also made of anterior bridging osteophyte formation in the lower thoracic region OTHER FINDINGS: None. IMPRESSION: No acute fractures. Multilevel degenerative spondylosis most notably affecting the L5-S1 and L4-L5 levels as detailed above.
--- NOTE | 2017-09-21 12:58 | CT ---
PROCEDURE: CT Abdomen and Pelvis with contrast HISTORY: BACK, abd pain COMPARISON: None. TECHNIQUE: Contrast dose: 100 mL Visipaque 320 Radiation dose: Total exam DLP = 787.36 mGy-cm. This CT exam was performed using one or more of the following dose reduction techniques: Automated exposure control, adjustment of the mA and/or kV according to patient size, and/or use of iterative reconstruction technique. FINDINGS: LOWER THORAX: Unremarkable. LIVER: Unremarkable. No gross lesion or ductal dilatation. GALLBLADDER AND BILE DUCTS: Unremarkable. Cholelithiasis. No mural thickening or pericholecystic fluid. PANCREAS: Unremarkable. No gross lesion or ductal dilatation. SPLEEN: Unremarkable. ADRENALS: Unremarkable. No mass. KIDNEYS AND URETERS: Multiple small bilateral renal cysts, largest upper pole right kidney, 2.1 cm. 5 mm nonobstructing calcification upper pole right kidney, possibly vascular versus collecting system. No hydronephrosis. VASCULATURE: Unremarkable. No aortic aneurysm. BOWEL: No bowel obstruction. No abnormal bowel loops. APPENDIX: Not identified PERITONEUM: Ventral hernia containing nonobstructed large and small bowel. 2 smaller supraumbilical ventral hernias containing only mesenteric. LYMPH NODES: Unremarkable. No enlarged lymph nodes. BLADDER: Unremarkable. REPRODUCTIVE: Posterior subserosal fundal uterine fibroid, 3.9 cm. BONES: No acute fracture. Grade 1 anterolisthesis L4-5, without accompanying spondylolysis. OTHER FINDINGS: None. IMPRESSION: No acute abnormality. Fundal uterine fibroid. Nonobstructing 5 mm right upper pole renal calcification, possibly vascular. Multiple small bilateral renal cysts. Cholelithiasis without evidence cholecystitis. Nevertheless, consider further evaluation with ultrasound examination if clinical situation warrants consideration of cholecystitis.
[2017-09-21 13:23] VITALS: BP 167/76; PULSE 70; RESP 16
== END 2017-09-21 13:23 | disposition home or self-care (01) ==
LOC: C.ER 09:40
DX: M54.5 Low back pain (principal); R10.9 Unspecified abdominal pain; E87.6 Hypokalemia
CPT/HCPCS: 72100; 74177; 80053; 81001; 83690; 85025; 87086; 87181; 96374; 99283; J1885; Q9967

== ENCOUNTER 2018-06-10 13:16 | Inpatient (IN) | payer OTHER ==
[2018-06-10] MEDS ORDERED: Sodium Chloride 0.9% 500 ML IV ONE (13:36)
--- NOTE | 2018-06-10 14:02 | RAD ---
HISTORY: chest pain COMPARISON: Chest x-ray performed 03/15/15 TECHNIQUE: Chest, one view. FINDINGS: LUNGS: No focal consolidation. Please note that chest x-ray has limited sensitivity for the detection of pulmonary masses. PLEURA: No significant pleural effusion identified. No definite pneumothorax . CARDIOVASCULAR: Heart size appears within normal limits. Atherosclerotic calcifications present. OSSEOUS STRUCTURES: Acromioclavicular arthropathy. Degenerative changes of the shoulders the glenohumeral joint space narrowing and osteophyte formation evident. Degenerative changes of the spine. VISUALIZED UPPER ABDOMEN: Unremarkable. OTHER FINDINGS: None. IMPRESSION: No focal consolidation.
--- NOTE | 2018-06-10 14:11 | C.PDOC ---
History Of Present Illness 82 year old female with a history of diverticulitis, HTN, HLD presents to the emergency department from her home with complaints of blood in the stool today. Patient denies pain, and states that she is unsure if she's had a colonoscopy. Patient has no other complaints at this time. Time Seen by Provider: 06/10/18 13:30 Chief Complaint (Nursing): GI Problem History Per: Patient History/Exam Limitations: no limitations Onset/Duration Of Symptoms: Hrs Current Symptoms Are (Timing): Still Present Number Of Bleeding Episodes: One Quality Of Discomfort: denies: "Pain" Associated Symptoms: Other (bright red blood) Past Medical History Reviewed: Historical Data, Nursing Documentation, Vital Signs Vital Signs: Last Vital Signs Temp 98.5 F 06/10/18 13:24 Pulse 72 06/10/18 13:24 Resp 18 06/10/18 13:24 BP 163/75 H 06/10/18 13:24 Pulse Ox 98 06/10/18 13:24 - Medical History PMH: Arthritis, Colonic Polyps, Diverticulitis, HTN Denies: Hypercholesterolemia (denies) Surgical History: Appendectomy, Endoscopy - [facility] Procedures CLOSED ENDOSCOPIC BIOPSY OF LARGE INTESTINE (10/21/13) Family History: States: No Known Family Hx - Social History Hx Tobacco Use: No Hx Alcohol Use: No Hx Substance Use: No - Immunization History Hx Tetanus Toxoid Vaccination: No Hx Influenza Vaccination: No Hx Pneumococcal Vaccination: No Review Of Systems Except As Marked, All Systems Reviewed And Found Negative. Constitutional: Negative for: Fever, Chills Gastrointestinal: Positive for: Hematochezia. Negative for: Nausea, Vomiting, Abdominal Pain, Diarrhea Physical Exam - Physical Exam Appears: Non-toxic, No Acute Distress Skin: Normal Color, Warm, Dry Head: Atraumatic, Normacephalic Eye(s): bilateral: Normal Inspection, PERRL, EOMI Neck: Normal, Supple Chest: Symmetrical, No Tenderness Cardiovascular: Rhythm Regular, No Murmur Respiratory: Normal Breath Sounds, No Rales, No Rhonchi, No Wheezing Gastrointestinal/Abdominal: Soft, No Tenderness, No Guarding, No Rebound Rectal: Deferred Extremity: Normal ROM Neurological/Psych: Oriented x3, Normal Speech, Normal Cognition ED Course And Treatment - Laboratory Results Result Diagrams: 06/10/18 14:32 01/07/19 14:32 ECG: Interpreted By Me, Viewed By Me ECG Rhythm: Sinus Rhythm, ST/T Changes, Nonspecific Changes Rate From EC O2 Sat by Pulse Oximetry: 98 (RA) Pulse Ox Interpretation: Normal Medical Decision Making Medical Decision Making: gi bleed coloncopy preivous shows internal hemorrhoids, and diverticulosis- refuses rectal in er. Plan: Type and Screen EKG Chemistry Hematology CXR NaCl IV Fluids Urinalysis Occult Blood Stool 13:08 Patient refused rectal exam. 17:[address] Estes, who will come see the patient in the ED tonight. h/h vitals stable ct shows active gi bleed. no hememesis. seen by gi in er. hemodynamically stable for tele. rolly lay accept. Disposition - Disposition Disposition Time: 20:01 Condition: FAIR - Clinical Impression Clinical Impression: Gastrointestinal hemorrhage - Scribe Statement The provider has reviewed the documentation as recorded by the Scribe (Fausto Leonides) Provider Attestation: All medical record entries made by the Scribe were at my direction and personally dictated by me. I have reviewed the chart and agree that the record accurately reflects my personal performance of the history, physical exam, medical decision making, and the department course for this patient. I have also personally directed, reviewed, and agree with the discharge instructions and disposition. Decision To Admit - Pt Status Changed To: Hospital Disposition Of: Inpatient - Admit Certification Admit to Inpatient:: After my assessment, the patient will require hospitalization for at least two midnights. This is because of the severity of symptoms shown, intensity of services needed, and/or the medical risk in this patient being treated as an outpatient. - InPatient: Physician Admission Certification: I certify that this patient requires 2 or more midnights of care for the following reason:: needs gi eval. h/h monitoring. - . Bed Request Type: Telemetry Admitting Physician: Julian Lay Patient Diagnosis: Gastrointestinal hemorrhage
[2018-06-10 14:40] LABS: BASO % 0.7 % (0.0-2.0); EOS # 0.1 K/uL (0.0-0.7); EOS % 1.6 % (0.0-4.0); HEMOGLOBIN 10.3 g/dL (11.0-16.0); LYMPH # 1.2 K/uL (1.0-4.3); LYMPH % 28.7 % (20.0-40.0); MEAN CELL VOLUME 79.4 fL (81.0-99.0); MEAN CORPUSCULAR HGB CONC 32.7 g/dL (33.0-37.0); MEAN PLATELET VOLUME 8.4 fL (7.2-11.7); MONO # 0.4 K/uL (0.0-0.8); MONO % 9.4 % (0.0-10.0); NEUT # 2.5 K/uL (1.8-7.0); NEUT % 59.6 % (50.0-75.0); RBC 3.98 Mil/uL (3.80-5.20); RED CELL DISTRIBUTION WIDTH 18.3 % (11.5-14.5); WHITE BLOOD COUNT 4.2 K/uL (4.8-10.8)
[2018-06-10 14:44] LABS: INR 1.1; PROTHROMBIN TIME 12.2 SECONDS (9.7-12.2)
[2018-06-10 14:48] LABS: ALB/GLOB RATIO 1.3 (1.0-2.1); ALT/SGPT 27 U/L (9-52); AST/SGOT 29 U/L (14-36); BLOOD UREA NITROGEN 20 mg/dL (7-17); CALCIUM 8.5 mg/dl (8.6-10.4); GFR NON-AFRICAN AMERICAN 53; LIPASE 105 U/L (23-300)
[2018-06-10] MEDS ORDERED: Iohexol 300 100 ML IJ ONE (16:19)
--- NOTE | 2018-06-10 17:04 | CT ---
Date of service: 06/10/2018 PROCEDURE: CT Abdomen and Pelvis with contrast HISTORY: gi bleed ho of diverticulosis COMPARISON: And pelvis CT with contrast 09/21/2017. TECHNIQUE: Contrast dose: Omnipaque 300, 100 cc Radiation dose: Total exam DLP = 823.24 mGy-cm. This CT exam was performed using one or more of the following dose reduction techniques: Automated exposure control, adjustment of the mA and/or kV according to patient size, and/or use of iterative reconstruction technique. FINDINGS: LOWER THORAX: Cardiomegaly and small hiatal hernia reiterated. No pleural or pericardial effusion. LIVER: Unremarkable. No gross lesion or ductal dilatation. GALLBLADDER AND BILE DUCTS: Cholelithiasis reiterated. PANCREAS: Unremarkable. No gross lesion or ductal dilatation. SPLEEN: Unremarkable. ADRENALS: Unremarkable. No mass. KIDNEYS AND URETERS: Unremarkable. No hydronephrosis. No solid mass. VASCULATURE: Unremarkable. No aortic aneurysm. Nonaneurysmal abdominal aortic calcific atherosclerotic changes are identified. BOWEL: The bowel does not appear obstructed and scattered colonic diverticula are reiterated. No colonic diverticulitis. Postoperative change sutures are identified at the rectosigmoid junction once again with anastomotic suture line unremarkable appearing overall. Interval suspicious crescentic hyperdensity is appreciated associated with the proximal to mid left hemicolon in a pattern suspicious for active hemorrhage at the wall and the lumen of the left hemicolon in the interval. This is best appreciated in images 64 through 87, series 3 and images 41 through 60 series 601 (coronal series). Small bowel appears unremarkable. APPENDIX: Not identified. PERITONEUM: No ascites or free intra peritoneal gas collection. There is a mildly large mid ventral abdominal hernia appreciated at the abdominopelvic junction region with the neck measuring at least 6.8 cm containing a few large and small bowel segments without incarceration. LYMPH NODES: Unremarkable. No enlarged lymph nodes. BLADDER: Unremarkable. REPRODUCTIVE: Persistent left adnexal lesion 4.2 x 4.1 cm superolateral to the left sided margins of the uterus, potentially reflecting a sub serosal fibroid. Unremarkable right adnexal compartment. BONES: Grade 1 degenerative spondylolisthesis, stable at L4-5. OTHER FINDINGS: None. IMPRESSION: 1. Pattern suspicious for active intraluminal hemorrhage at the proximal to mid left hemicolon as discussed above. No definitive pattern of active diverticulitis is appreciated at this time and a small intraluminal mass is not excluded but has not been successful identified in this examination. Occasional colonic diverticula are identified. No bowel obstruction. 2. Unremarkable appearing anastomotic suture line at the rectosigmoid junction. 3. Left adnexal lesion 4.2 cm, unchanged, potentially reflecting an exophytic subserosal fibroid. Findings discussed with Dr. Mcfarland with written down read back verification 06/10/2018 4:53 p.m..
[2018-06-10 18:26] LABS: SQUAMOUS EPITHIAL < 1 /hpf (0-5); URINE BILIRUBIN NEGATIVE (NEGATIVE); URINE BLOOD 3+ (NEGATIVE); URINE COLOR Straw (YELLOW); URINE GLUCOSE (UA) NORMAL (Normal); URINE LEUKOCYTE ESTERASE NEG Leu/uL (Negative); URINE PROTEIN NEGATIVE (NEGATIVE); URINE UROBILINOGEN NORMAL mg/dL (0.2-1.0)
[2018-06-10 18:34] LABS: URINE CLARITY Hazy (Clear)
--- NOTE | 2018-06-10 18:45 | CP.PCM.HP ---
Past Patient History - Infectious Disease Hx of Infectious Diseases: None - Past Medical History & Family History Past Medical History?: Yes - Past Social History Smoking Status: Never Smoked - CARDIAC Hx Hypercholesterolemia: No (denies) Hx Hypertension: Yes - PULMONARY Hx Respiratory Disorders: No - NEUROLOGICAL Hx Neurological Disorder: No - HEENT Hx HEENT Problems: Yes Hx Cataracts: Yes Hx Glaucoma: Yes - ENDOCRINE/METABOLIC Hx Endocrine Disorders: No - HEMATOLOGICAL/ONCOLOGICAL Hx Blood Disorders: No - INTEGUMENTARY Hx Dermatological Problems: No - MUSCULOSKELETAL/RHEUMATOLOGICAL Hx Arthritis: Yes - GASTROINTESTINAL Hx Diverticulitis: Yes - GENITOURINARY/GYNECOLOGICAL Hx Genitourinary Disorders: No - PSYCHIATRIC Hx Substance Use: No - SURGICAL HISTORY Hx Appendectomy: Yes - ANESTHESIA Hx Anesthesia: Yes Hx Anesthesia Reactions: No Hx Malignant Hyperthermia: No Meds Allergies/Adverse Reactions: Allergies Allergy/AdvReac Type Severity Reaction Status Date / Time No Known Allergies Allergy Verified 09/21/17 09:47 Physical Exam - Constitutional Appears: Well - Head Exam Head Exam: ATRAUMATIC, NORMAL INSPECTION, NORMOCEPHALIC - Eye Exam Eye Exam: EOMI, Normal appearance, PERRL Pupil Exam: NORMAL ACCOMODATION, PERRL - ENT Exam ENT Exam: Mucous Membranes Moist, Normal Exam - Neck Exam Neck exam: Positive for: Normal Inspection - Respiratory Exam Respiratory Exam: Decreased Breath Sounds - Cardiovascular Exam Cardiovascular Exam: REGULAR RHYTHM, +S1, +S2 - GI/Abdominal Exam GI & Abdominal Exam: Diminished Bowel Sounds, Soft - Rectal Exam Rectal Exam: Deferred Results - Vital Signs Recent Vital Signs: Last Vital Signs Temp 98.5 F 06/10/18 13:24 Pulse 72 06/10/18 13:24 Resp 18 06/10/18 13:24 BP 163/75 H 06/10/18 13:24 Pulse Ox 98 06/10/18 17:59 - Labs Result Diagrams: 06/10/18 14:32 06/10/18 14:32 Labs: Laboratory Results - last 24 hr 06/10/18 06/10/18 06/10/18 14:32 14:32 14:32 WBC 4.2 L RBC 3.98 Hgb 10.3 L Hct 31.6 L MCV 79.4 L MCH 26.0 L MCHC 32.7 L RDW 18.3 H Plt Count 200 MPV 8.4 Neut % (Auto) 59.6 Lymph % (Auto) 28.7 [place] % (Auto) 9.4 Eos % (Auto) 1.6 Baso % (Auto) 0.7 Neut # (Auto) 2.5 Lymph # (Auto) 1.2 [place] # (Auto) 0.4 Eos # (Auto) 0.1 Baso # (Auto) 0.0 PT 12.2 INR 1.1 APTT 40 H Sodium 141 Potassium 3.5 L Chloride 109 H Carbon Dioxide 27 Anion Gap 8 L BUN 20 H Creatinine 1.0 Est GFR ( Amer) > 60 Est GFR (Non-Af Amer) 53 Random Glucose 93 Calcium 8.5 L Total Bilirubin 0.5 AST 29 ALT 27 Alkaline Phosphatase 59 Troponin I < 0.0120 Total Protein 7.2 Albumin 4.0 Globulin 3.2 Albumin/Globulin Ratio 1.3 Lipase 105 Urine Color Urine Clarity Urine pH Ur Specific [place] Urine Protein Urine Glucose (UA) Urine Ketones Urine Blood Urine Nitrate Urine Bilirubin Urine Urobilinogen Ur Leukocyte Esterase Urine WBC (Auto) Urine RBC (Auto) Ur Squamous Epith Cells Blood Type Antibody Screen 06/10/18 06/10/18 14:32 18:06 WBC RBC Hgb Hct MCV MCH MCHC RDW Plt Count MPV Neut % (Auto) Lymph % (Auto) [place] % (Auto) Eos % (Auto) Baso % (Auto) Neut # (Auto) Lymph # (Auto) [place] # (Auto) Eos # (Auto) Baso # (Auto) PT INR APTT Sodium Potassium Chloride Carbon Dioxide Anion Gap BUN Creatinine Est GFR ( Amer) Est GFR (Non-Af Amer) Random Glucose Calcium Total Bilirubin AST ALT Alkaline Phosphatase Troponin I Total Protein Albumin Globulin Albumin/Globulin Ratio Lipase Urine Color Straw Urine Clarity Hazy Urine pH 6.0 Ur Specific [place] 1.026 Urine Protein Negative Urine Glucose (UA) Normal Urine Ketones Negative Urine Blood 3+ H Urine Nitrate Negative Urine Bilirubin Negative Urine Urobilinogen Normal Ur Leukocyte Esterase Neg Urine WBC (Auto) 1 Urine RBC (Auto) 61 H Ur Squamous Epith Cells < 1 Blood Type O POSITIVE Antibody Screen Negative
[2018-06-10] MEDS ORDERED: guaiFENesin DM 200 mg-20 mg/10 ml UD PO PRN (23:21)
[2018-06-11 05:57] LABS: BASO % 0.8 % (0.0-2.0); EOS % 1.1 % (0.0-4.0); HEMOGLOBIN 7.9 g/dL (11.0-16.0); LYMPH # 1.6 K/uL (1.0-4.3); LYMPH % 42.9 % (20.0-40.0); MEAN CELL VOLUME 79.1 fL (81.0-99.0); MEAN CORPUSCULAR HEMOGLOBIN 25.8 pg (27.0-31.0); MEAN CORPUSCULAR HGB CONC 32.6 g/dL (33.0-37.0); MEAN PLATELET VOLUME 8.1 fL (7.2-11.7); MONO # 0.3 K/uL (0.0-0.8); MONO % 6.8 % (0.0-10.0); NEUT # 1.8 K/uL (1.8-7.0); NEUT % 48.4 % (50.0-75.0); RBC 3.04 Mil/uL (3.80-5.20); RED CELL DISTRIBUTION WIDTH 18.6 % (11.5-14.5); WHITE BLOOD COUNT 3.7 K/uL (4.8-10.8)
[2018-06-11 06:08] LABS: ALB/GLOB RATIO 1.2 (1.0-2.1); ALBUMIN 3.2 g/dL (3.5-5.0); ALT/SGPT 25 U/L (9-52); AST/SGOT 25 U/L (14-36); BLOOD UREA NITROGEN 21 mg/dL (7-17); GFR NON-AFRICAN AMERICAN > 60
[2018-06-11] MEDS ORDERED: MULTIVIT MIN PO SCH (10:00)
[2018-06-11] MEDS ORDERED: Home Med 1 UNIT (Lactulose [Lactulose] 10 GM) PO SCH (10:00)
[2018-06-11] MEDS ORDERED: CYCLOSPORINE OP SCH ×2 (10:00→18:00)
[2018-06-11] MEDS ORDERED: FOLIC ACID PO SCH (10:00)
[2018-06-11] MEDS ORDERED: VIT K1 PO SCH (10:00)
--- NOTE | 2018-06-11 12:10 | CARD ---
APPROVED REPORT Date of service: 06/10/2018 EKG Measurement Heart [id number] <Conclusion> Normal sinus rhythm Minimal voltage criteria for LVH, may be normal variant T wave abnormality, consider lateral ischemia Abnormal ECG
--- NOTE | 2018-06-11 13:41 | CP.PCM.CON ---
History of Present Illness - History of Present Illness History of Present Illness: GI Fellow PGY4, consult note Mandy Can is an 82F presenting with blood in her stool. The bleeding started yesterday while having a BM, she has had several episodes since that time including a large bloody BM on the 6th floor of the hospital which she was transitioned to the ICU. Patient has been afeb, HDS. Patient denies abdominal pain, vomiting, nausea. She admits to a history of PUD and to recently starting mobic for joint pain and also takes daily baby aspirin. She does not take any PPIs. She denies taking blood thinners, anticoagulants. She has had one other episode similar to this but not as severe and was told she had a diverticular bleed at that time and reportedly resolved without intervention. Labs reviewed, Hb Dropped from 10.3 to 7.9 prior to last bloody BM. CT Reviewed - Likely blood found in colon lumen, cannot r/o mass. PMHx - diverticulitis, HTN, HLD PSHx - Partial colon resection. Hysterectomy. Colonoscopy 2013, negative. FMHx - Denies GI related cancers SocHx - denies alcohol, tobacco, drug use. 12pt ROS completed and negative except for above. Past Patient History - Infectious Disease Hx of Infectious Diseases: None - Past Medical History & Family History Past Medical History?: Yes - Past Social History Smoking Status: Never Smoked - CARDIAC Hx Hypercholesterolemia: No (denies) Hx Hypertension: Yes - PULMONARY Hx Respiratory Disorders: No - NEUROLOGICAL Hx Neurological Disorder: No - HEENT Hx HEENT Problems: Yes Hx Cataracts: Yes Hx Glaucoma: Yes - ENDOCRINE/METABOLIC Hx Endocrine Disorders: No - HEMATOLOGICAL/ONCOLOGICAL Hx Blood Disorders: No - INTEGUMENTARY Hx Dermatological Problems: No - MUSCULOSKELETAL/RHEUMATOLOGICAL Hx Arthritis: Yes Hx Falls: No - GASTROINTESTINAL Hx Diverticulitis: Yes - GENITOURINARY/GYNECOLOGICAL Hx Genitourinary Disorders: No - PSYCHIATRIC Hx Substance Use: No - SURGICAL HISTORY Hx Appendectomy: Yes - ANESTHESIA Hx Anesthesia: Yes Hx Anesthesia Reactions: No Hx Malignant Hyperthermia: No Meds Allergies/Adverse Reactions: Allergies Allergy/AdvReac Type Severity Reaction Status Date / Time No Known Allergies Allergy Verified 06/11/18 08:15 - Medications Medications: Current Medications Guaifenesin/Dextromethorphan (Robitussin Dm) 10 ml PO TID PRN PRN Reason: Cough and congestion Home Med (Cyclosporine [Restasis]) 1 ea OP BID [facility] Hydralazine HCl (Apresoline) 50 mg PO Q8 [facility] Last Admin: 06/11/18 08:21 Dose: 50 mg Lactulose (Enulose) 10 gm PO DAILY [facility] Multivitamins (Hexavitamin) 1 tab PO DAILY [facility] Propranolol HCl (Inderal) 20 mg PO DAILY [facility] Last Admin: 06/11/18 11:05 Dose: 20 mg Rosuvastatin Calcium (Crestor) 5 mg PO HS [facility] Physical Exam - Constitutional Appears: Well, Non-toxic, No Acute Distress - Head Exam Head Exam: ATRAUMATIC, NORMAL INSPECTION - Eye Exam Eye Exam: EOMI, Normal appearance - ENT Exam ENT Exam: Mucous Membranes Moist, Normal Exam - Respiratory Exam Respiratory Exam: Clear to Auscultation Bilateral, NORMAL BREATHING PATTERN - Cardiovascular Exam Cardiovascular Exam: REGULAR RHYTHM, +S1, +S2 - GI/Abdominal Exam GI & Abdominal Exam: Normal Bowel Sounds, Soft. absent: Organomegaly, Tenderness - Rectal Exam Rectal Exam: Deferred Additional comments: Obvious BRBPR on bed, floor. - Extremities Exam Extremities exam: Positive for: normal inspection. Negative for: pedal edema - Neurological Exam Neurological exam: Alert, CN II-XII Intact, Oriented x3 - Psychiatric Exam Psychiatric exam: Normal Affect, Normal Mood - Skin Skin Exam: Normal Color, Warm Results - Vital Signs Recent Vital Signs: Last Vital Signs Temp 98.2 F 06/11/18 12:29 Pulse 74 06/11/18 12:29 Resp 19 06/11/18 12:29 BP 142/62 06/11/18 12:29 Pulse Ox 99 06/11/18 12:29 - Labs Result Diagrams: 06/11/18 15:21 06/11/18 15:21 Labs: Laboratory Results - last 24 hr 06/10/18 06/10/18 06/10/18 14:32 14:32 14:32 WBC 4.2 L RBC 3.98 Hgb 10.3 L Hct 31.6 L MCV 79.4 L MCH 26.0 L MCHC 32.7 L RDW 18.3 H Plt Count 200 MPV 8.4 Neut % (Auto) 59.6 Lymph % (Auto) 28.7 [place] % (Auto) 9.4 Eos % (Auto) 1.6 Baso % (Auto) 0.7 Neut # (Auto) 2.5 Lymph # (Auto) 1.2 [place] # (Auto) 0.4 Eos # (Auto) 0.1 Baso # (Auto) 0.0 PT 12.2 INR 1.1 APTT 40 H Sodium 141 Potassium 3.5 L Chloride 109 H Carbon Dioxide 27 Anion Gap 8 L BUN 20 H Creatinine 1.0 Est GFR ( Amer) > 60 Est GFR (Non-Af Amer) 53 Random Glucose 93 Calcium 8.5 L Total Bilirubin 0.5 AST 29 ALT 27 Alkaline Phosphatase 59 Troponin I < 0.0120 Total Protein 7.2 Albumin 4.0 Globulin 3.2 Albumin/Globulin Ratio 1.3 Lipase 105 Urine Color Urine Clarity Urine pH Ur Specific [place] Urine Protein Urine Glucose (UA) Urine Ketones Urine Blood Urine Nitrate Urine Bilirubin Urine Urobilinogen Ur Leukocyte Esterase Urine WBC (Auto) Urine RBC (Auto) Ur Squamous Epith Cells Blood Type Antibody Screen 06/10/18 06/10/18 06/11/18 14:32 18:06 05:53 WBC 3.7 L RBC 3.04 L Hgb 7.9 L D Hct 24.1 L MCV 79.1 L MCH 25.8 L MCHC 32.6 L RDW 18.6 H Plt Count 169 MPV 8.1 Neut % (Auto) 48.4 L Lymph % (Auto) 42.9 H [place] % (Auto) 6.8 Eos % (Auto) 1.1 Baso % (Auto) 0.8 Neut # (Auto) 1.8 Lymph # (Auto) 1.6 [place] # (Auto) 0.3 Eos # (Auto) 0.0 Baso # (Auto) 0.0 PT INR APTT Sodium Potassium Chloride Carbon Dioxide Anion Gap BUN Creatinine Est GFR ( Amer) Est GFR (Non-Af Amer) Random Glucose Calcium Total Bilirubin AST ALT Alkaline Phosphatase Troponin I Total Protein Albumin Globulin Albumin/Globulin Ratio Lipase Urine Color Straw Urine Clarity Hazy Urine pH 6.0 Ur Specific [place] 1.026 Urine Protein Negative Urine Glucose (UA) Normal Urine Ketones Negative Urine Blood 3+ H Urine Nitrate Negative Urine Bilirubin Negative Urine Urobilinogen Normal Ur Leukocyte Esterase Neg Urine WBC (Auto) 1 Urine RBC (Auto) 61 H Ur Squamous Epith Cells < 1 Blood Type O POSITIVE Antibody Screen Negative 06/11/18 05:53 WBC RBC Hgb Hct MCV MCH MCHC RDW Plt Count MPV Neut % (Auto) Lymph % (Auto) [place] % (Auto) Eos % (Auto) Baso % (Auto) Neut # (Auto) Lymph # (Auto) [place] # (Auto) Eos # (Auto) Baso # (Auto) PT INR APTT Sodium 139 Potassium 3.6 Chloride 110 H Carbon Dioxide 25 Anion Gap 9 L BUN 21 H Creatinine 0.8 Est GFR ( Amer) > 60 Est GFR (Non-Af Amer) > 60 Random Glucose 91 Calcium 8.0 L Total Bilirubin 0.6 AST 25 ALT 25 Alkaline Phosphatase 53 Troponin I Total Protein 6.0 L Albumin 3.2 L Globulin 2.8 Albumin/Globulin Ratio 1.2 Lipase Urine Color Urine Clarity Urine pH Ur Specific [place] Urine Protein Urine Glucose (UA) Urine Ketones Urine Blood Urine Nitrate Urine Bilirubin Urine Urobilinogen Ur Leukocyte Esterase Urine WBC (Auto) Urine RBC (Auto) Ur Squamous Epith Cells Blood Type Antibody Screen Assessment & Plan - Assessment and Plan (Free Text) Assessment: #Acute blood loss anemia due to GI bleed #diverticulosis #h/o PUD #HTN PLAN: -Most likely lower GI bleed due to diverticular disease. Less likely upper GI bleed but cannot r/o. Bleeding would be expected to slowly decrease over the next 48hrs. Blood may pool in colon and a bloody BM may not necessarily be continued active bleeding. -Labs reviewed, acute anemia. BUN/Cr ratio lower than expected for upper GI bleed. -CT reviewed, evidence of acute GI bleed from colon. -Continue PPI drip -Monitor Hb q6h. Transfuse to maintain Hb>7. -Avoid NSAIDs, anticoagulation -STAT GI bleeding scan -Plan for EGD tomorrow +/- colonoscopy. -Continue NPO status -Continue IVF per ICU, monitor for fluid overload (saline + blood products in elderly person) - Date & Time Date: 06/11/18 Time: 15:29
--- NOTE | 2018-06-11 14:52 | PCM.RRT ---
<Isaak Reese - Last Filed: 06/11/18 14:52> DRIVABILITY TECHNICIAN Nurses Assessment - Situation Date: 06/11/18 Time DRIVABILITY TECHNICIAN was called: 14:20 DRIVABILITY TECHNICIAN Responder Arrival Time:: 02:21 DRIVABILITY TECHNICIAN Location:: 6T Med/Surg DRIVABILITY TECHNICIAN Called By: RN - IV IV Inserted during DRIVABILITY TECHNICIAN?: Yes New IV Insertion Tolerance: Excellent - Respiratory DRIVABILITY TECHNICIAN Delivery Method: Room Air - Liya Coma Scale Coma Scale Eye Opening: Spontaneous Coma Scale Motor: Obeys Commands Movement Coma Scale Verbal: Oriented Coma Scale Total: 15 - Recommendations 5) DRIVABILITY TECHNICIAN Level of Care Recommendations: Transfer to ICU Notifications: Attending Physician, Consultations I.Reason for DRIVABILITY TECHNICIAN - A) Acute Change in Patient: (Select all that apply): Staff member or family is worried about patient - Neurological Status (Select all that apply): Alert, Responsive, Oriented, Verbal, Follows Commands - Respiratory Oxygen Delivery Method: Room Air - Constitutional Appears: Well, Non-toxic - Head Head Exam: ATRAUMATIC, NORMAL INSPECTION - Eyes Eye Exam: EOMI - Respiratory Exam Respiratory Exam: Clear to Ausculation Bilateral, NORMAL BREATHING PATTERN. absent: Rales, Rhonchi, Wheezes - Cardiovascular Exam Cardiovascular Exam: REGULAR RHYTHM, +S1, +S2 - GI/Abdominal Exam GI & Abdominal Exam: Soft, Normal Bowel Sounds. absent: Tenderness - Neurological Exam Neurological Exam: Alert, Awake, CN II-XII Intact, Oriented x3 - Extremities Exam Extremities Exam: Full ROM Plan - Assessment of Findings&Treatment Plan Pt known GI bleed in the past; diverticular bleed patient was being transported from ED to [facility] and entire bed/floor became covered in blood; EBL 1L Patient was receiving 1 unit of blood Pt has no complaints; states bleed started last night after BM and has been coming out ever since last night started high dose NSAIDS 1/4 Vitals stable; BP 145/80, HR 75, 98% RA, RR 14 Ordered 80mg IV protonix; start drip Just finished 1unit PRBC; continue to transfuse recommended NPO plan for procedure with GI transfer to ICU GI at bedside; Dr. Estes; thank you for your help Isaak Reese PGY3 Medicine <Atul Chavez - Last Filed: 06/11/18 15:11> Attending/Attestation - Attestation I have personally seen and examined this patient.: Yes I have fully participated in the care of the patient.: Yes I have reviewed all pertinent clinical information, including history, physical exam and plan: Yes Notes (Text): 06/11/18 15:06 DRIVABILITY TECHNICIAN called due to dark tarry stool bleeding. Patient was immediately brought back to bed and DRIVABILITY TECHNICIAN was called She was in the process of getting a PRBC She was awake, alert, orientated x 3. She denied chest pain, denied shortness of breath Orders for ptonix ggt, she will need additional PRBCs Patient is being moved to the ICU for further monitoring Atul Chavez
[2018-06-11 15:26] LABS: HEMOGLOBIN 9.3 g/dL (11.0-16.0); MEAN CORPUSCULAR HEMOGLOBIN 27.7 pg (27.0-31.0); MEAN CORPUSCULAR HGB CONC 33.5 g/dL (33.0-37.0); MEAN PLATELET VOLUME 8.3 fL (7.2-11.7); RBC 3.35 Mil/uL (3.80-5.20); RED CELL DISTRIBUTION WIDTH 19.7 % (11.5-14.5); WHITE BLOOD COUNT 5.5 K/uL (4.8-10.8)
[2018-06-11 15:30] LABS: MEAN CELL VOLUME 82.7 fL (81.0-99.0)
[2018-06-11] MEDS ORDERED: Pantoprazole 80 MG in Sodium Chloride 0.9% 100 ML IVP ONE (15:30)
[2018-06-11 15:41] LABS: ALB/GLOB RATIO 1.2 (1.0-2.1); ALBUMIN 3.3 g/dL (3.5-5.0); ALT/SGPT 25 U/L (9-52); AST/SGOT 25 U/L (14-36); BLOOD UREA NITROGEN 21 mg/dL (7-17); CALCIUM 8.1 mg/dl (8.6-10.4); GFR NON-AFRICAN AMERICAN > 60
--- NOTE | 2018-06-11 15:57 | CP.PCM.CON ---
<Markel Bear - Last Filed: 06/11/18 15:57> History of Present Illness - History of Present Illness History of Present Illness: Critical Care Progress Note for Dr. Saldana's service CC: rectal bleed HPI: Patient is an 82 yo female w/ arthritis, prior hx of gi bleed, diverticulosis, HTN, angina, and HLD admitted to ICU for evaluation of rectal bleed. Patient states that she recently was switched from tramadol to high dose motrin. Patient admits she takes baby aspirin at home. Patient reports she had a bowel movement with blood at home which prompted her to come to the ED. Patient on medical floors had a bowel movement with a large amount of blood. PLATE CUTTER was called and patient was transferred to ICU. Patient was given 1 unit of blood. Patient denies fevers, chills, chest pain, sob, n/v, constipation or diarrhea, and dysuria. PMHx - diverticulitis, HTN, HLD PSHx - Partial colon resection. Hysterectomy. Colonoscopy 2013, negative. FMHx - Denies GI related cancers SocHx - denies alcohol, tobacco, drug use. Review of Systems - Review of Systems Review of Systems: 12 point ROS obtained and noted in HPI Past Patient History - Infectious Disease Hx of Infectious Diseases: None - Past Medical History & Family History Past Medical History?: Yes - Past Social History Smoking Status: Never Smoked - CARDIAC Hx Hypercholesterolemia: No (denies) Hx Hypertension: Yes - PULMONARY Hx Respiratory Disorders: No - NEUROLOGICAL Hx Neurological Disorder: No - HEENT Hx HEENT Problems: Yes Hx Cataracts: Yes Hx Glaucoma: Yes - ENDOCRINE/METABOLIC Hx Endocrine Disorders: No - HEMATOLOGICAL/ONCOLOGICAL Hx Blood Disorders: No - INTEGUMENTARY Hx Dermatological Problems: No - MUSCULOSKELETAL/RHEUMATOLOGICAL Hx Arthritis: Yes Hx Falls: No - GASTROINTESTINAL Hx Diverticulitis: Yes - GENITOURINARY/GYNECOLOGICAL Hx Genitourinary Disorders: No - PSYCHIATRIC Hx Substance Use: No - SURGICAL HISTORY Hx Appendectomy: Yes - ANESTHESIA Hx Anesthesia: Yes Hx Anesthesia Reactions: No Hx Malignant Hyperthermia: No Meds Allergies/Adverse Reactions: Allergies Allergy/AdvReac Type Severity Reaction Status Date / Time No Known Allergies Allergy Verified 06/11/18 08:15 - Medications Medications: Current Medications Guaifenesin/Dextromethorphan (Robitussin Dm) 10 ml PO TID PRN PRN Reason: Cough and congestion Hydralazine HCl (Apresoline) 50 mg PO Q8 [facility] Last Admin: 06/11/18 14:14 Dose: 50 mg Pantoprazole Sodium 80 mg/ (Sodium Chloride) 100 mls @ 10 mls/hr IVPB .Q10H [facility] Multivitamins (Hexavitamin) 1 tab PO DAILY [facility] Propranolol HCl (Inderal) 20 mg PO DAILY [facility] Last Admin: 06/11/18 11:05 Dose: 20 mg Rosuvastatin Calcium (Crestor) 5 mg PO HS [facility] Physical Exam - Constitutional Appears: Non-toxic, No Acute Distress - Head Exam Head Exam: NORMAL INSPECTION, NORMOCEPHALIC - Eye Exam Eye Exam: EOMI, Normal appearance. absent: Nystagmus, Scleral icterus - ENT Exam ENT Exam: Mucous Membranes Moist - Respiratory Exam Respiratory Exam: Clear to Auscultation Bilateral, NORMAL BREATHING PATTERN. absent: Rales, Rhonchi, Wheezes - Cardiovascular Exam Cardiovascular Exam: REGULAR RHYTHM, +S1, +S2 - GI/Abdominal Exam GI & Abdominal Exam: Normal Bowel Sounds, Soft. absent: Diminished Bowel Sounds, Distended, Firm, Guarding, Tenderness Additional comments: umbilical hernia - Extremities Exam Extremities exam: Positive for: pedal edema. Negative for: calf tenderness Additional comments: +1 pitting edema noted - Neurological Exam Neurological exam: Alert, CN II-XII Intact, Oriented x3 - Psychiatric Exam Psychiatric exam: Normal Affect, Normal Mood - Skin Skin Exam: Intact, Normal Color Results - Vital Signs Recent Vital Signs: Last Vital Signs Temp 98.2 F 06/11/18 12:29 Pulse 80 06/11/18 14:02 Resp 17 06/11/18 14:02 BP 146/68 06/11/18 14:02 Pulse Ox 98 06/11/18 14:02 - Labs Result Diagrams: 06/11/18 15:21 06/11/18 15:21 Labs: Laboratory Results - last 24 hr 06/10/18 06/10/18 06/11/18 14:32 18:06 05:53 WBC 3.7 L RBC 3.04 L Hgb 7.9 L D Hct 24.1 L MCV 79.1 L MCH 25.8 L MCHC 32.6 L RDW 18.6 H Plt Count 169 MPV 8.1 Neut % (Auto) 48.4 L Lymph % (Auto) 42.9 H Geary % (Auto) 6.8 Eos % (Auto) 1.1 Baso % (Auto) 0.8 Neut # (Auto) 1.8 Lymph # (Auto) 1.6 Geary # (Auto) 0.3 Eos # (Auto) 0.0 Baso # (Auto) 0.0 Sodium Potassium Chloride Carbon Dioxide Anion Gap BUN Creatinine Est GFR ( Amer) Est GFR (Non-Af Amer) Random Glucose Calcium Total Bilirubin AST ALT Alkaline Phosphatase Total Protein Albumin Globulin Albumin/Globulin Ratio Urine Color Straw Urine Clarity Hazy Urine pH 6.0 Ur Specific [place] 1.026 Urine Protein Negative Urine Glucose (UA) Normal Urine Ketones Negative Urine Blood 3+ H Urine Nitrate Negative Urine Bilirubin Negative Urine Urobilinogen Normal Ur Leukocyte Esterase Neg Urine WBC (Auto) 1 Urine RBC (Auto) 61 H Ur Squamous Epith Cells < 1 Blood Type O POSITIVE Antibody Screen Negative 06/11/18 06/11/18 05:53 15:21 WBC 5.5 RBC 3.35 L Hgb 9.3 L Hct 27.7 L MCV 82.7 D MCH 27.7 MCHC 33.5 RDW 19.7 H Plt Count 176 MPV 8.3 Neut % (Auto) Lymph % (Auto) Geary % (Auto) Eos % (Auto) Baso % (Auto) Neut # (Auto) Lymph # (Auto) Geary # (Auto) Eos # (Auto) Baso # (Auto) Sodium 139 Potassium 3.6 Chloride 110 H Carbon Dioxide 25 Anion Gap 9 L BUN 21 H Creatinine 0.8 Est GFR ( Amer) > 60 Est GFR (Non-Af Amer) > 60 Random Glucose 91 Calcium 8.0 L Total Bilirubin 0.6 AST 25 ALT 25 Alkaline Phosphatase 53 Total Protein 6.0 L Albumin 3.2 L Globulin 2.8 Albumin/Globulin Ratio 1.2 Urine Color Urine Clarity Urine pH Ur Specific [place] Urine Protein Urine Glucose (UA) Urine Ketones Urine Blood Urine Nitrate Urine Bilirubin Urine Urobilinogen Ur Leukocyte Esterase Urine WBC (Auto) Urine RBC (Auto) Ur Squamous Epith Cells Blood Type Antibody Screen Assessment & Plan - Assessment and Plan (Free Text) Assessment: Patient is an 82 yo female w/ arthritis, prior hx of gi bleed, diverticulosis, HTN, angina, and HLD admitted to ICU for evaluation of rectal bleed. Neuro awake alert oriented; no active issues Pulm no active issues maintain spO2>92 robitussin CV Crestor, Propanolol, Hydralazine GI active rectal bleed- bleeding scan pending endoscopy in am; patient npo; IV protonix avoid nsaids given 1 unit of pRBCs; 500 ns bolus given Renal KCl 10 meq x 3 Repeat CMP in AM ID no active issues Disposition: bleeding scan, endoscopy in AM, NPO, protonix, optimize medically prior to procedure PGY-1 Markel Bear Medical Management discussed with Dr. Saldana <Tr Saldana S - Last Filed: 06/11/18 16:44> Meds - Medications Medications: Current Medications Guaifenesin/Dextromethorphan (Robitussin Dm) 10 ml PO TID PRN PRN Reason: Cough and congestion Hydralazine HCl (Apresoline) 50 mg PO Q8 [facility] Last Admin: 06/11/18 14:14 Dose: 50 mg Pantoprazole Sodium 80 mg/ (Sodium Chloride) 100 mls @ 10 mls/hr IVPB .Q10H [facility] Potassium Chloride (Potassium Chloride 10 Meq/100 Ml) 10 meq in 100 mls @ 100 mls/hr IVPB Q1H [facility] Stop: 06/11/18 19:29 Magnesium Sulfate/Dextrose (Magnesium Sulfate 1 Gm/100 Ml D5w) 1 gm in 100 mls @ 200 mls/hr IVPB ONCE ONE Stop: 06/11/18 17:29 Multivitamins (Hexavitamin) 1 tab PO DAILY [facility] Propranolol HCl (Inderal) 20 mg PO DAILY [facility] Last Admin: 06/11/18 11:05 Dose: 20 mg Rosuvastatin Calcium (Crestor) 5 mg PO [facility] Results - Vital Signs Recent Vital Signs: Last Vital Signs Temp 98.2 F 06/11/18 12:29 Pulse 80 06/11/18 14:02 Resp 17 06/11/18 14:02 BP 146/68 06/11/18 14:02 Pulse Ox 98 06/11/18 14:02 - Labs Result Diagrams: 06/11/18 15:21 06/11/18 15:21 Labs: Laboratory Results - last 24 hr 06/10/18 06/10/18 06/11/18 14:32 18:06 05:53 WBC 3.7 L RBC 3.04 L Hgb 7.9 L D Hct 24.1 L MCV 79.1 L MCH 25.8 L MCHC 32.6 L RDW 18.6 H Plt Count 169 MPV 8.1 Neut % (Auto) 48.4 L Lymph % (Auto) 42.9 H Geary % (Auto) 6.8 Eos % (Auto) 1.1 Baso % (Auto) 0.8 Neut # (Auto) 1.8 Lymph # (Auto) 1.6 Geary # (Auto) 0.3 Eos # (Auto) 0.0 Baso # (Auto) 0.0 Sodium Potassium Chloride Carbon Dioxide Anion Gap BUN Creatinine Est GFR ( Amer) Est GFR (Non-Af Amer) Random Glucose Calcium Phosphorus Magnesium Total Bilirubin AST ALT Alkaline Phosphatase Total Protein Albumin Globulin Albumin/Globulin Ratio Urine Color Straw Urine Clarity Hazy Urine pH 6.0 Ur Specific [place] 1.026 Urine Protein Negative Urine Glucose (UA) Normal Urine Ketones Negative Urine Blood 3+ H Urine Nitrate Negative Urine Bilirubin Negative Urine Urobilinogen Normal Ur Leukocyte Esterase Neg Urine WBC (Auto) 1 Urine RBC (Auto) 61 H Ur Squamous Epith Cells < 1 Blood Type O POSITIVE Antibody Screen Negative 06/11/18 06/11/18 06/11/18 05:53 15:21 15:21 WBC 5.5 RBC 3.35 L Hgb 9.3 L Hct 27.7 L MCV 82.7 D MCH 27.7 MCHC 33.5 RDW 19.7 H Plt Count 176 MPV 8.3 Neut % (Auto) Lymph % (Auto) Geary % (Auto) Eos % (Auto) Baso % (Auto) Neut # (Auto) Lymph # (Auto) Geary # (Auto) Eos # (Auto) Baso # (Auto) Sodium 139 140 Potassium 3.6 3.5 L Chloride 110 H 109 H Carbon Dioxide 25 21 L Anion Gap 9 L 13 BUN 21 H 21 H Creatinine 0.8 0.8 Est GFR ( Amer) > 60 > 60 Est GFR (Non-Af Amer) > 60 > 60 Random Glucose 91 103 Calcium 8.0 L 8.1 L Phosphorus 2.7 Magnesium 1.5 L Total Bilirubin 0.6 0.8 AST 25 25 ALT 25 25 Alkaline Phosphatase 53 55 Total Protein 6.0 L 6.0 L Albumin 3.2 L 3.3 L Globulin 2.8 2.7 Albumin/Globulin Ratio 1.2 1.2 Urine Color Urine Clarity Urine pH Ur Specific [place] Urine Protein Urine Glucose (UA) Urine Ketones Urine Blood Urine Nitrate Urine Bilirubin Urine Urobilinogen Ur Leukocyte Esterase Urine WBC (Auto) Urine RBC (Auto) Ur Squamous Epith Cells Blood Type Antibody Screen Attending/Attestation - Attestation I have personally seen and examined this patient.: Yes I have fully participated in the care of the patient.: Yes I have reviewed all pertinent clinical information: Yes Notes (Text): 06/11/18 16:43 Patient seen and examined 82-year-old female transferred to ICU for rectal bleeding and hypotension Transfuse packed RBCs Start Protonix drip GI consult Follow-up H&H Bleeding scan
[2018-06-11] MEDS: Pantoprazole 80 MG in Sodium Chloride 0.9% 100 ML IVPB ONE ×2 (15:58→16:01)
[2018-06-11] MEDS: Pantoprazole 80 MG in Sodium Chloride 0.9% 100 ML IVPB SCH (16:00)
[2018-06-11] MEDS ORDERED: Pantoprazole 80 MG in Sodium Chloride 0.9% 100 ML IVP SCH (16:00)
[2018-06-11] MEDS ORDERED: Magnesium Sulfate 1 gm in D5W 1 GM/100 ML BAG IVPB ONE (17:00)
--- NOTE | 2018-06-11 18:01 | CP.PCM.PN ---
Subjective - Date & Time of Evaluation Date of Evaluation: 06/11/18 Time of Evaluation: 18:01 - Subjective Subjective: Patient seen and examined Chart reviewed Coverage for Dr. Demetrius Bowens Objective - Vital Signs/Intake and Output Vital Signs (last 24 hours): Temp Pulse Resp BP Pulse Ox 99.3 F 68 18 155/76 H 99 06/11/18 16:00 06/11/18 17:00 06/11/18 17:00 06/11/18 17:00 06/11/18 17:00 Intake and Output: 06/11/18 06/11/18 06:59 18:59 Intake Total 110 Balance 110 - Medications Medications: Current Medications Guaifenesin/Dextromethorphan (Robitussin Dm) 10 ml PO TID PRN PRN Reason: Cough and congestion Hydralazine HCl (Apresoline) 50 mg PO Q8 [facility] Last Admin: 06/11/18 14:14 Dose: 50 mg Pantoprazole Sodium 80 mg/ (Sodium Chloride) 100 mls @ 10 mls/hr IVPB .Q10H [facility] Potassium Chloride (Potassium Chloride 10 Meq/100 Ml) 10 meq in 100 mls @ 100 mls/hr IVPB Q1H [facility] Stop: 06/11/18 19:29 Multivitamins (Hexavitamin) 1 tab PO DAILY [facility] Propranolol HCl (Inderal) 20 mg PO DAILY [facility] Last Admin: 06/11/18 11:05 Dose: 20 mg Rosuvastatin Calcium (Crestor) 5 mg PO HS [facility] - Labs Labs: 06/11/18 15:21 06/11/18 15:21 PT 12.2 SECONDS (9.7-12.2) 06/10/18 14:32 INR 1.1 06/10/18 14:32 APTT 40 SECONDS (21-34) H 06/10/18 14:32 - Head Exam Head Exam: NORMAL INSPECTION - Eye Exam Eye Exam: Normal appearance - ENT Exam ENT Exam: Mucous Membranes Moist - Respiratory Exam Respiratory Exam: Clear to Ausculation Bilateral - Cardiovascular Exam Cardiovascular Exam: REGULAR RHYTHM, +S1, +S2 - GI/Abdominal Exam GI & Abdominal Exam: Soft - Extremities Exam Extremities Exam: Normal Inspection - Neurological Exam Neurological Exam: Alert, Oriented x3 Assessment and Plan (1) Abdominal pain Status: Acute (2) Gastrointestinal hemorrhage Status: Acute (3) Uncontrolled hypertension Status: Acute - Assessment and Plan (Free Text) Plan: Follow CBC GI follow-up Surgery follow-up IV PPI Blood pressure control IV fluids Transfuse as needed DVT/GI prophylaxis
[2018-06-11] MEDS ORDERED: Iohexol 350mg/ml 100 ML ONE (18:02)
--- NOTE | 2018-06-11 18:58 | CT ---
Date of service: 06/11/2018 CTA abdomen and pelvis Indication: active lower GI bleed Comparison: CT abdomen pelvis with IV contrast performed 06/10/18 Technique: Contrast dose: 100 cc Omnipaque 350 Total exam DLP: 753.94 mGy cm Axial computed tomographic angiogram images of the abdomen and pelvis were performed after bolus administration of nonionic intravenous contrast. Multiplanar, 3D (maximum intensity projection) reconstructions of the aorta were created in the coronal and sagittal planes by the cardiovascular technologist. This CT exam was performed using 1 or more of the falling dose reduction techniques: Automated exposure control, adjustment of the MAA and/or kV according to patient size, and/or use of iterative reconstruction technique. Findings: Limited views of the inferior thorax appear unremarkable without visible pleural effusion or pneumothorax. Small hiatal hernia/distal esophageal wall thickening. Atherosclerotic calcifications of the aorta and branches. Aneurysmal dilatation of the abdominal aorta measuring approximately 2.4 x 2.3 x 3.0 cm (AP by transverse by cc). The celiac artery origin appears patent. The superior mesenteric artery origin appears patent. The inferior mesenteric artery origin appears patent. Bilateral renal arteries appear patent.. The liver appears within normal limits of size and morphology. Hyperdensity within the gallbladder presumably due to vicarious excretion of contrast. Evidence of small dependent gallstones. The pancreas, spleen, adrenal glands, and gallbladder appear otherwise unremarkable. The kidneys enhance symmetrically without evidence of hydronephrosis or obstructing renal calculi. Too small to characterize right renal hypodensities, statistically likely cysts. No bulky adenopathy identified. Crescentic hyperdensities again noted within the proximal left colon suspicious for active hemorrhage. Visualized bowel loops appear within normal limits of caliber without evidence of obstruction. Diverticulosis without CT evidence of acute diverticulitis. Anastomotic suture material at the rectosigmoid colon. Fluid level within the distended rectosigmoid colon at this level. The appendix is not identified. No inflammatory changes are seen in the right lower quadrant to suggest acute appendicitis. No definite free air. Large mid ventral abdominal hernia containing large and small bowel without obstruction. The urinary bladder appears unremarkable. The uterus is present. 4.0 x 3.7 cm left adnexal mass, possibly fibroid. No significant pelvic free fluid is identified. 3 mm anterolisthesis of L4 on L5. Multilevel degenerative changes. Impression: Pattern remains suspicious for active intraluminal hemorrhage involving the proximal left colon. Diverticulosis without CT evidence of acute diverticulitis. Anastomotic suture material at the rectosigmoid colon. Fluid level within the distended rectosigmoid colon at this level. Left adnexal mass re-identified, possibly fibroid. Additional findings as above. Aneurysmal dilatation of the infrarenal abdominal aorta. Additional incidental findings as above.
--- NOTE | 2018-06-11 19:22 | NM ---
Date of service: 06/11/2018 PROCEDURE: Nuclear Medicine Gastrointestinal Bleeding Scan. HISTORY: ?diverticular bleed COMPARISON: Abdomen pelvis CT with contrast 06/10/2018. TECHNIQUE: 4ccof patient blood was withdrawn and mixed with 21.4mCi of technetium ultra tagged. Images of the abdomen and pelvis were obtained in the anterior and posterior projection at 1 min intervals over a period of 45 min. FINDINGS: Examination demonstrates abnormal uptake at the left nate abdomen and in the pelvis just above the level of the urinary bladder. Activity is abnormal beginning at the left upper quadrant just lateral to midline extending inferolaterally and then medially toward the pelvis suspicious for potential mid to distal transverse colon hemorrhage. Because there is some hyperactivity in the pelvis just immediately before activity begins to pole at the distal transverse segment, is unclear whether there may be a 2nd area of hemorrhage in the sigmoid colon. Correlating the pattern with prior CT of the abdomen pelvis from 06/10/2018, hemorrhage at the distal transverse colon/splenic flexure is confirmed. Physiologic activity was seen in the heart, liver, spleen and blood vessels. Compatible with active gastrointestinal bleeding at the distal transverse colon extending into the left hemicolon and sigmoid segment. Borderline pattern of hemorrhage at the sigmoid colon as well but this is not borne out in prior CT abdomen 06/10/2018. Clinically correlate further. IMPRESSION: Compatible with active gastrointestinal bleeding at the distal transverse colon extending into the left hemicolon and sigmoid segment. Borderline pattern of hemorrhage at the sigmoid colon as well but this is not borne out in prior CT abdomen 06/10/2018. Clinically correlate further. Findings discussed with Dr. Ralph with written down and read back verification preliminarily prior to this report 06/11/2018 5:35 p.m..
--- NOTE | 2018-06-11 19:44 | CP.PCM.CON ---
History of Present Illness - History of Present Illness History of Present Illness: Surgery Consult note. Dr. Thomas 82yo F with PMHx of Arthritis, Diverticulosis w prior self-limiting GI bleed, HTN, Angina, HLD here for evaluation of rectal bleeding. Patient reports that she noted an episode of Bright red blood per rectum while she was straining herself to have a BM at home. She does state that she recently started taking high dose motrin for her arthritis history. She also takes a baby aspirin at home. She denies any chest pain, no SOB. Denies any abdominal pain. No nausea or vomiting. No syncope or dizziness. No urinary complaints. No headaches. Today, patient was admitted to the hospital [facility] and was noted to have an episode of large amount of blood per rectum and was transferred to the ICU for further management. CTA Abdomen and Bleeding scan performed with evidence of bleeding from distal transverse/proximal descending colon. Last Colonoscopy 2013. PMHx: Diverticulosis w prior self-limiting GI bleed 4 years ago, Arthritis, HTN, Angina, HLD PSHx: Partial colon resection. Hysterectomy, Oopherectomy, Salpingectomy; Family Hx: non-contributory Social Hx: Deneis ETOH use, Denies Tobacco use, Denies illicit drugs NKDA Review of Systems - Review of Systems All systems: reviewed and no additional remarkable complaints except Review of Systems: as per HPI Past Patient History - Infectious Disease Hx of Infectious Diseases: None - Past Medical History & Family History Past Medical History?: Yes - Past Social History Smoking Status: Never Smoked Alcohol: None Drugs: Denies - CARDIAC Hx Hypercholesterolemia: No (denies) Hx Hypertension: Yes - PULMONARY Hx Respiratory Disorders: No - NEUROLOGICAL Hx Neurological Disorder: No - HEENT Hx HEENT Problems: Yes Hx Cataracts: Yes Hx Glaucoma: Yes - ENDOCRINE/METABOLIC Hx Endocrine Disorders: No - HEMATOLOGICAL/ONCOLOGICAL Hx Blood Disorders: No - INTEGUMENTARY Hx Dermatological Problems: No - MUSCULOSKELETAL/RHEUMATOLOGICAL Hx Arthritis: Yes Hx Falls: No - GASTROINTESTINAL Hx Diverticulitis: Yes - GENITOURINARY/GYNECOLOGICAL Hx Genitourinary Disorders: No - PSYCHIATRIC Hx Substance Use: No - SURGICAL HISTORY Hx Appendectomy: Yes - ANESTHESIA Hx Anesthesia: Yes Hx Anesthesia Reactions: No Hx Malignant Hyperthermia: No Meds Allergies/Adverse Reactions: Allergies Allergy/AdvReac Type Severity Reaction Status Date / Time No Known Allergies Allergy Verified 06/11/18 08:15 - Medications Medications: Current Medications Guaifenesin/Dextromethorphan (Robitussin Dm) 10 ml PO TID PRN PRN Reason: Cough and congestion Hydralazine HCl (Apresoline) 50 mg PO Q8 [facility] Last Admin: 06/11/18 14:14 Dose: 50 mg Pantoprazole Sodium 80 mg/ (Sodium Chloride) 100 mls @ 10 mls/hr IVPB .Q10H [facility] Last Admin: 06/11/18 16:00 Dose: 10 mls/hr Multivitamins (Hexavitamin) 1 tab PO DAILY [facility] Propranolol HCl (Inderal) 20 mg PO DAILY [facility] Last Admin: 06/11/18 11:05 Dose: 20 mg Rosuvastatin Calcium (Crestor) 5 mg PO HS [facility] Physical Exam - Constitutional Appears: Well, Non-toxic, No Acute Distress - Head Exam Head Exam: ATRAUMATIC, NORMAL INSPECTION, NORMOCEPHALIC - Eye Exam Eye Exam: EOMI, Normal appearance. absent: Scleral icterus - ENT Exam ENT Exam: Mucous Membranes Moist, Normal Exam - Respiratory Exam Respiratory Exam: NORMAL BREATHING PATTERN. absent: Accessory Muscle Use, Re spiratory Distress - GI/Abdominal Exam GI & Abdominal Exam: Soft. absent: Distended, Firm, Guarding, Rebound, Rigid, Tenderness - Rectal Exam Additional comments: Patient refused rectal exam - Extremities Exam Extremities exam: Positive for: normal inspection. Negative for: calf tenderness - Neurological Exam Neurological exam: Alert, Oriented x3 - Psychiatric Exam Psychiatric exam: Normal Affect, Normal Mood - Skin Skin Exam: Dry, Intact, Normal Color, Warm Results - Vital Signs Recent Vital Signs: Last Vital Signs Temp 99.3 F 06/11/18 16:00 Pulse 77 06/11/18 19:00 Resp 19 06/11/18 19:00 BP 135/42 L 06/11/18 19:00 Pulse Ox 99 06/11/18 19:00 - Labs Result Diagrams: 06/11/18 15:21 06/11/18 15:21 Labs: Laboratory Results - last 24 hr 06/10/18 06/11/18 06/11/18 14:32 05:53 05:53 WBC 3.7 L RBC 3.04 L Hgb 7.9 L D Hct 24.1 L MCV 79.1 L MCH 25.8 L MCHC 32.6 L RDW 18.6 H Plt Count 169 MPV 8.1 Neut % (Auto) 48.4 L Lymph % (Auto) 42.9 H [place] % (Auto) 6.8 Eos % (Auto) 1.1 Baso % (Auto) 0.8 Neut # (Auto) 1.8 Lymph # (Auto) 1.6 [place] # (Auto) 0.3 Eos # (Auto) 0.0 Baso # (Auto) 0.0 Sodium 139 Potassium 3.6 Chloride 110 H Carbon Dioxide 25 Anion Gap 9 L BUN 21 H Creatinine 0.8 Est GFR ( Amer) > 60 Est GFR (Non-Af Amer) > 60 Random Glucose 91 Calcium 8.0 L Phosphorus Magnesium Total Bilirubin 0.6 AST 25 ALT 25 Alkaline Phosphatase 53 Total Protein 6.0 L Albumin 3.2 L Globulin 2.8 Albumin/Globulin Ratio 1.2 Blood Type O POSITIVE Antibody Screen Negative 06/11/18 06/11/18 15:21 15:21 WBC 5.5 RBC 3.35 L Hgb 9.3 L Hct 27.7 L MCV 82.7 D MCH 27.7 MCHC 33.5 RDW 19.7 H Plt Count 176 MPV 8.3 Neut % (Auto) Lymph % (Auto) [place] % (Auto) Eos % (Auto) Baso % (Auto) Neut # (Auto) Lymph # (Auto) [place] # (Auto) Eos # (Auto) Baso # (Auto) Sodium 140 Potassium 3.5 L Chloride 109 H Carbon Dioxide 21 L Anion Gap 13 BUN 21 H Creatinine 0.8 Est GFR ( Amer) > 60 Est GFR (Non-Af Amer) > 60 Random Glucose 103 Calcium 8.1 L Phosphorus 2.7 Magnesium 1.5 L Total Bilirubin 0.8 AST 25 ALT 25 Alkaline Phosphatase 55 Total Protein 6.0 L Albumin 3.3 L Globulin 2.7 Albumin/Globulin Ratio 1.2 Blood Type Antibody Screen Assessment & Plan - Assessment and Plan (Free Text) Assessment: 82yo F with lower GI bleeding. CTA Abd and bleeding scan with evidence of bleeding from distal transverse/proximal descending colon. Plan: - Continue to monitor H/H - Vitals stable. No hypotension - Transfuse as needed - PPI therapy - f/u GI recs - Will monitor clinical status and make further recs as warranted Further recs as per Dr. William Lucas PGY2 surgery
[2018-06-11 21:30] LABS: HEMOGLOBIN 8.5 g/dL (11.0-16.0); MEAN CELL VOLUME 82.3 fL (81.0-99.0); MEAN CORPUSCULAR HEMOGLOBIN 27.2 pg (27.0-31.0); MEAN CORPUSCULAR HGB CONC 33.1 g/dL (33.0-37.0); MEAN PLATELET VOLUME 7.8 fL (7.2-11.7); RBC 3.13 Mil/uL (3.80-5.20); RED CELL DISTRIBUTION WIDTH 19.9 % (11.5-14.5); WHITE BLOOD COUNT 5.8 K/uL (4.8-10.8)
[2018-06-11 21:55] LABS: BLOOD UREA NITROGEN 19 mg/dL (7-17); CALCIUM 7.9 mg/dl (8.6-10.4); GFR NON-AFRICAN AMERICAN 60
[2018-06-12] MEDS ORDERED: Sodium Chloride 0.9% 500 ML IV ONE (01:02)
[2018-06-12 01:21] LABS: BASO % 0.8 % (0.0-2.0); EOS # 0.1 K/uL (0.0-0.7); EOS % 0.9 % (0.0-4.0); HEMOGLOBIN 7.6 g/dL (11.0-16.0); LYMPH % 33.9 % (20.0-40.0); MEAN CELL VOLUME 82.8 fL (81.0-99.0); MEAN CORPUSCULAR HEMOGLOBIN 27.4 pg (27.0-31.0); MEAN CORPUSCULAR HGB CONC 33.2 g/dL (33.0-37.0); MEAN PLATELET VOLUME 8.4 fL (7.2-11.7); MONO # 0.3 K/uL (0.0-0.8); MONO % 5.6 % (0.0-10.0); NEUT # 3.5 K/uL (1.8-7.0); NEUT % 58.8 % (50.0-75.0); NRBC % 0.1 % (0.0-2.0); RBC 2.78 Mil/uL (3.80-5.20); RED CELL DISTRIBUTION WIDTH 19.1 % (11.5-14.5)
[2018-06-12 01:29] LABS: INR 1.1; PROTHROMBIN TIME 12.5 SECONDS (9.7-12.2)
[2018-06-12] MEDS: Pantoprazole 80 MG in Sodium Chloride 0.9% 100 ML IVPB SCH ×2 (01:30→15:17)
[2018-06-12 01:41] LABS: ALB/GLOB RATIO 1.1 (1.0-2.1); ALBUMIN 2.9 g/dL (3.5-5.0); ALT/SGPT 22 U/L (9-52); AST/SGOT 20 U/L (14-36); BLOOD UREA NITROGEN 18 mg/dL (7-17); CALCIUM 7.8 mg/dl (8.6-10.4); GFR NON-AFRICAN AMERICAN > 60
--- NOTE | 2018-06-12 07:41 | CP.PCM.PN ---
Subjective - Date & Time of Evaluation Date of Evaluation: 06/12/18 Time of Evaluation: 07:00 - Subjective Subjective: General Surgery Pt Seen and examined. Had another bloody BM overnight. Hgb dropped to 7.6, will get 2 more PRBCs. GI planning endoscopy today. Objective - Vital Signs/Intake and Output Vital Signs (last 24 hours): Temp Pulse Resp BP Pulse Ox 98.1 F 75 22 130/60 99 06/12/18 05:40 06/12/18 06:00 06/12/18 06:00 06/12/18 06:00 06/12/18 06:00 Intake and Output: 06/12/18 06/12/18 06:59 18:59 Intake Total 1620 135 Output Total 3 Balance 1617 135 - Medications Medications: Current Medications Guaifenesin/Dextromethorphan (Robitussin Dm) 10 ml PO TID PRN PRN Reason: Cough and congestion Hydralazine HCl (Apresoline) 50 mg PO Q8 [facility] Last Admin: 06/12/18 06:00 Dose: Not Given Pantoprazole Sodium 80 mg/ (Sodium Chloride) 100 mls @ 10 mls/hr IVPB .Q10H [facility] Last Admin: 06/12/18 01:30 Dose: 10 mls/hr Multivitamins (Hexavitamin) 1 tab PO DAILY [facility] Propranolol HCl (Inderal) 20 mg PO DAILY [facility] Last Admin: 06/11/18 11:05 Dose: 20 mg Rosuvastatin Calcium (Crestor) 5 mg PO HS [facility] Last Admin: 06/11/18 22:00 Dose: Not Given - Labs Labs: 06/12/18 01:18 06/12/18 01:18 PT 12.5 SECONDS (9.7-12.2) H 06/12/18 01:18 INR 1.1 06/12/18 01:18 APTT 34 SECONDS (21-34) D 06/12/18 01:18 - Constitutional Appears: Non-toxic, No Acute Distress - Head Exam Head Exam: ATRAUMATIC, NORMOCEPHALIC - Eye Exam Eye Exam: EOMI. absent: Scleral icterus - Respiratory Exam Respiratory Exam: NORMAL BREATHING PATTERN. absent: Respiratory Distress - GI/Abdominal Exam GI & Abdominal Exam: Soft. absent: Distended, Firm, Guarding, Rigid, Tenderness - Extremities Exam Extremities Exam: Normal Capillary Refill. absent: Calf Tenderness - Back Exam Back Exam: absent: CVA tenderness (L), CVA tenderness (R) - Neurological Exam Neurological Exam: Alert, Awake - Skin Skin Exam: Dry, Warm Assessment and Plan - Assessment and Plan (Free Text) Assessment: 82F with lower GI bleeding. Plan: Transfuse PRN, monitor H&H F/U GI scopes D/W Dr. William Gil PGY4
--- NOTE | 2018-06-12 08:22 | CP.CCUPN ---
<Markel Bear - Last Filed: 06/12/18 12:03> CCU Subjective - Physician Review Events Since Last Encounter (Free Text): 06/12/18 12:07 Patient overnight had bloody bowel movements requiring 2 units of pRBCs. Patient was bradycardic and cool/clammy. Morning labs showed improvement in Hgb Subjective (Free Text): 06/12/18 12:03 Critical Care Progress note for Dr. Saldana's service Patient seen and examined at bedside. Patient offers no acute complaints. Patient denies fevers, chills, chest pain, sob, n/v, dysuria. Patient states since AM she has no bowel movements. Critical Care Time Spent (in minutes): 35 CCU Objective - Vital Signs / Intake & Output Vital Signs (Last 4 hours): Vital Signs Temp Pulse Resp BP Pulse Ox 06/12/18 07:40 98 F 71 17 101/78 06/12/18 07:00 71 11 L 101/78 98 06/12/18 06:00 75 22 130/60 99 06/12/18 05:45 69 15 121/61 98 06/12/18 05:40 98.1 F 70 14 121/61 06/12/18 05:31 72 30 H 138/59 L 97 06/12/18 05:25 98.1 F 70 14 138/59 L 06/12/18 05:15 74 36 H 110/71 98 06/12/18 05:10 97.5 F L 73 16 110/71 06/12/18 05:00 83 15 106/64 100 06/12/18 04:55 98.1 F 75 15 102/63 06/12/18 04:53 74 26 H 102/63 99 06/12/18 04:46 79 19 130/108 H 97 06/12/18 04:40 97.9 F 99 H 20 114/66 06/12/18 04:30 102 H 23 114/66 100 Intake and Output (Last 8hrs): Intake & Output 06/11/18 06/12/18 06/12/18 22:59 06:59 14:59 Intake Total 570 1480 510 Output Total 2 1 Balance 568 1479 510 Weight 128 lb Intake: Intake, IV Amount 570 580 10 Right Antecubital 400 500 Right Forearm 140 Right Hand 30 80 10 Oral 0 Blood Product 850 450 Red Blood Cells Cpd As1 0 325 Lr Unit [id number] Red Blood Cells Cpd As1 325 Lr Unit [id number] Other 50 50 Red Blood Cells Cpd As1 50 Lr Unit [id number] Red Blood Cells Cpd As1 50 Lr Unit [id number] Output: Stool 1 Urine/Stool Mix 1 1 Other: # Voids Urine, Voided 1 1 # Bowel Movements 1 - Physical Exam Head: Positive for: Atraumatic, Normocephalic Pupils: Positive for: PERRL Extroacular Muscles: Positive for: EOMI Conjunctiva: Positive for: Normal Mouth: Positive for: Moist Mucous Membranes Respiratory/Chest: Positive for: Clear to Auscultation, Good Air Exchange. Negative for: Respiratory Distress, Accessory Muscle Use, Wheezes, Rhonchi Cardiovascular: Positive for: Regular Rate and Rhythm, Normal S1, S2. Negative for: Murmurs, Irregular Rhythm Abdomen: Positive for: Normal Bowel Sounds. Negative for: Tenderness, Distention, Peritoneal Signs Upper Extremity: Positive for: Normal Inspection. Negative for: Cyanosis, Edema Lower Extremity: Positive for: Normal Inspection. Negative for: Edema Neurological: Positive for: GCS=15 Skin: Positive for: Warm, Normal Color Psychiatric: Positive for: Alert, Oriented x 3 - Medications Active Medications: Active Medications Generic Name Dose Route Start Last Admin Trade Name Freq PRN Reason Stop Dose Admin Guaifenesin/Dextromethorphan 10 ml 06/10/18 23:21 Robitussin Dm PO TID PRN Cough and congestion Hydralazine HCl 50 mg 06/11/18 06:00 06/12/18 06:00 Apresoline PO Not Given Q8 SANDY Pantoprazole Sodium 80 mg/ 100 mls @ 10 mls/hr 06/11/18 16:00 06/12/18 01:30 Sodium Chloride IVPB 10 mls/hr .Q10H SANDY Administration 8 MG/HR Multivitamins 1 tab 06/12/18 10:00 Hexavitamin PO DAILY SANDY Propranolol HCl 20 mg 06/11/18 10:00 06/11/18 11:05 Inderal PO 20 mg DAILY SANDY Administration Rosuvastatin Calcium 5 mg 06/11/18 22:00 06/11/18 22:00 Crestor PO Not Given HS SANDY - Patient Studies Lab Studies: Lab Studies 06/12/18 06/12/18 06/12/18 Range/Units 01:18 01:18 01:18 WBC 6.0 (4.8-10.8) K/uL RBC 2.78 L (3.80-5.20) Mil/uL Hgb 7.6 L (11.0-16.0) g/dL Hct 23.0 L (34.0-47.0) % MCV 82.8 (81.0-99.0) fL MCH 27.4 (27.0-31.0) pg MCHC 33.2 (33.0-37.0) g/dL RDW 19.1 H (11.5-14.5) % Plt Count 157 (130-400) K/uL MPV 8.4 (7.2-11.7) fL Neut % (Auto) 58.8 (50.0-75.0) % Lymph % (Auto) 33.9 (20.0-40.0) % [place] % (Auto) 5.6 (0.0-10.0) % Eos % (Auto) 0.9 (0.0-4.0) % Baso % (Auto) 0.8 (0.0-2.0) % Neut # (Auto) 3.5 (1.8-7.0) K/uL Lymph # (Auto) 2.0 (1.0-4.3) K/uL [place] # (Auto) 0.3 (0.0-0.8) K/uL Eos # (Auto) 0.1 (0.0-0.7) K/uL Baso # (Auto) 0.0 (0.0-0.2) K/uL PT 12.5 H (9.7-12.2) SECONDS INR 1.1 APTT 34 D (21-34) SECONDS Sodium 137 (132-148) mmol/L Potassium 4.0 (3.6-5.2) mmol/L Chloride 110 H (98-107) mmol/L Carbon Dioxide 21 L (22-30) mmol/L Anion Gap 11 (10-20) BUN 18 H (7-17) mg/dL Creatinine 0.8 (0.7-1.2) mg/dL Est GFR ( Amer) > 60 Est GFR (Non-Af Amer) > 60 POC Glucose (mg/dL) (65-110) mg/dL Random Glucose 128 H (65-105) mg/dL Calcium 7.8 L (8.6-10.4) mg/dl Phosphorus 2.5 (2.5-4.5) mg/dL Magnesium 1.9 (1.6-2.3) mg/dL Total Bilirubin 0.7 (0.2-1.3) mg/dL AST 20 (14-36) U/L ALT 22 (9-52) U/L Alkaline Phosphatase 51 (38-126) U/L Total Protein 5.5 L (6.3-8.3) g/dL Albumin 2.9 L (3.5-5.0) g/dL Globulin 2.6 (2.2-3.9) gm/dL Albumin/Globulin Ratio 1.1 (1.0-2.1) Blood Type Antibody Screen 06/12/18 06/11/18 06/11/18 Range/Units 00:53 21:27 21:27 WBC 5.8 (4.8-10.8) K/uL RBC 3.13 L (3.80-5.20) Mil/uL Hgb 8.5 L (11.0-16.0) g/dL Hct 25.8 L (34.0-47.0) % MCV 82.3 (81.0-99.0) fL MCH 27.2 (27.0-31.0) pg MCHC 33.1 (33.0-37.0) g/dL RDW 19.9 H (11.5-14.5) % Plt Count 166 (130-400) K/uL MPV 7.8 (7.2-11.7) fL Neut % (Auto) (50.0-75.0) % Lymph % (Auto) (20.0-40.0) % [place] % (Auto) (0.0-10.0) % Eos % (Auto) (0.0-4.0) % Baso % (Auto) (0.0-2.0) % Neut # (Auto) (1.8-7.0) K/uL Lymph # (Auto) (1.0-4.3) K/uL [place] # (Auto) (0.0-0.8) K/uL Eos # (Auto) (0.0-0.7) K/uL Baso # (Auto) (0.0-0.2) K/uL PT (9.7-12.2) SECONDS INR APTT (21-34) SECONDS Sodium 138 (132-148) mmol/L Potassium 3.8 (3.6-5.2) mmol/L Chloride 110 H (98-107) mmol/L Carbon Dioxide 23 (22-30) mmol/L Anion Gap 8 L (10-20) BUN 19 H (7-17) mg/dL Creatinine 0.9 (0.7-1.2) mg/dL Est GFR ( Amer) > 60 Est GFR (Non-Af Amer) 60 POC Glucose (mg/dL) 147 H (65-110) mg/dL Random Glucose 113 H (65-105) mg/dL Calcium 7.9 L (8.6-10.4) mg/dl Phosphorus 2.3 L (2.5-4.5) mg/dL Magnesium 1.9 (1.6-2.3) mg/dL Total Bilirubin (0.2-1.3) mg/dL AST (14-36) U/L ALT (9-52) U/L Alkaline Phosphatase (38-126) U/L Total Protein (6.3-8.3) g/dL Albumin (3.5-5.0) g/dL Globulin (2.2-3.9) gm/dL Albumin/Globulin Ratio (1.0-2.1) Blood Type Antibody Screen 06/11/18 06/11/18 06/10/18 Range/Units 15:21 15:21 14:32 WBC 5.5 (4.8-10.8) K/uL RBC 3.35 L (3.80-5.20) Mil/uL Hgb 9.3 L (11.0-16.0) g/dL Hct 27.7 L (34.0-47.0) % MCV 82.7 D (81.0-99.0) fL MCH 27.7 (27.0-31.0) pg MCHC 33.5 (33.0-37.0) g/dL RDW 19.7 H (11.5-14.5) % Plt Count 176 (130-400) K/uL MPV 8.3 (7.2-11.7) fL Neut % (Auto) (50.0-75.0) % Lymph % (Auto) (20.0-40.0) % [place] % (Auto) (0.0-10.0) % Eos % (Auto) (0.0-4.0) % Baso % (Auto) (0.0-2.0) % Neut # (Auto) (1.8-7.0) K/uL Lymph # (Auto) (1.0-4.3) K/uL [place] # (Auto) (0.0-0.8) K/uL Eos # (Auto) (0.0-0.7) K/uL Baso # (Auto) (0.0-0.2) K/uL PT (9.7-12.2) SECONDS INR APTT (21-34) SECONDS Sodium 140 (132-148) mmol/L Potassium 3.5 L (3.6-5.2) mmol/L Chloride 109 H (98-107) mmol/L Carbon Dioxide 21 L (22-30) mmol/L Anion Gap 13 (10-20) BUN 21 H (7-17) mg/dL Creatinine 0.8 (0.7-1.2) mg/dL Est GFR ( Amer) > 60 Est GFR (Non-Af Amer) > 60 POC Glucose (mg/dL) (65-110) mg/dL Random Glucose 103 (65-105) mg/dL Calcium 8.1 L (8.6-10.4) mg/dl Phosphorus 2.7 (2.5-4.5) mg/dL Magnesium 1.5 L (1.6-2.3) mg/dL Total Bilirubin 0.8 (0.2-1.3) mg/dL AST 25 (14-36) U/L ALT 25 (9-52) U/L Alkaline Phosphatase 55 (38-126) U/L Total Protein 6.0 L (6.3-8.3) g/dL Albumin 3.3 L (3.5-5.0) g/dL Globulin 2.7 (2.2-3.9) gm/dL Albumin/Globulin Ratio 1.2 (1.0-2.1) Blood Type O POSITIVE Antibody Screen Negative Laboratory Results - last 24 hr 06/10/18 06/11/18 06/11/18 14:32 15:21 15:21 WBC 5.5 RBC 3.35 L Hgb 9.3 L Hct 27.7 L MCV 82.7 D MCH 27.7 MCHC 33.5 RDW 19.7 H Plt Count 176 MPV 8.3 Neut % (Auto) Lymph % (Auto) [place] % (Auto) Eos % (Auto) Baso % (Auto) Neut # (Auto) Lymph # (Auto) [place] # (Auto) Eos # (Auto) Baso # (Auto) PT INR APTT Sodium 140 Potassium 3.5 L Chloride 109 H Carbon Dioxide 21 L Anion Gap 13 BUN 21 H Creatinine 0.8 Est GFR ( Amer) > 60 Est GFR (Non-Af Amer) > 60 POC Glucose (mg/dL) Random Glucose 103 Calcium 8.1 L Phosphorus 2.7 Magnesium 1.5 L Total Bilirubin 0.8 AST 25 ALT 25 Alkaline Phosphatase 55 Total Protein 6.0 L Albumin 3.3 L Globulin 2.7 Albumin/Globulin Ratio 1.2 Blood Type O POSITIVE Antibody Screen Negative 06/11/18 06/11/18 06/12/18 21:27 21:27 00:53 WBC 5.8 RBC 3.13 L Hgb 8.5 L Hct 25.8 L MCV 82.3 MCH 27.2 MCHC 33.1 RDW 19.9 H Plt Count 166 MPV 7.8 Neut % (Auto) Lymph % (Auto) [place] % (Auto) Eos % (Auto) Baso % (Auto) Neut # (Auto) Lymph # (Auto) [place] # (Auto) Eos # (Auto) Baso # (Auto) PT INR APTT Sodium 138 Potassium 3.8 Chloride 110 H Carbon Dioxide 23 Anion Gap 8 L BUN 19 H Creatinine 0.9 Est GFR ( Amer) > 60 Est GFR (Non-Af Amer) 60 POC Glucose (mg/dL) 147 H Random Glucose 113 H Calcium 7.9 L Phosphorus 2.3 L Magnesium 1.9 Total Bilirubin AST ALT Alkaline Phosphatase Total Protein Albumin Globulin Albumin/Globulin Ratio Blood Type Antibody Screen 06/12/18 06/12/18 06/12/18 01:18 01:18 01:18 WBC 6.0 RBC 2.78 L Hgb 7.6 L Hct 23.0 L MCV 82.8 MCH 27.4 MCHC 33.2 RDW 19.1 H Plt Count 157 MPV 8.4 Neut % (Auto) 58.8 Lymph % (Auto) 33.9 [place] % (Auto) 5.6 Eos % (Auto) 0.9 Baso % (Auto) 0.8 Neut # (Auto) 3.5 Lymph # (Auto) 2.0 [place] # (Auto) 0.3 Eos # (Auto) 0.1 Baso # (Auto) 0.0 PT 12.5 H INR 1.1 APTT 34 D Sodium 137 Potassium 4.0 Chloride 110 H Carbon Dioxide 21 L Anion Gap 11 BUN 18 H Creatinine 0.8 Est GFR ( Amer) > 60 Est GFR (Non-Af Amer) > 60 POC Glucose (mg/dL) Random Glucose 128 H Calcium 7.8 L Phosphorus 2.5 Magnesium 1.9 Total Bilirubin 0.7 AST 20 ALT 22 Alkaline Phosphatase 51 Total Protein 5.5 L Albumin 2.9 L Globulin 2.6 Albumin/Globulin Ratio 1.1 Blood Type Antibody Screen Radiology Impressions: Radiology Impressions GI Bleed Scan Nuclear Medicine 06/11/18 15:44 IMPRESSION: Compatible with active gastrointestinal bleeding at the distal transverse colon extending into the left hemicolon and sigmoid segment. Borderline pattern of hemorrhage at the sigmoid colon as well but this is not borne out in prior CT abdomen 06/10/2018. Clinically correlate further. Findings discussed with Dr. Ralph with written down and read back verification preliminarily prior to this report 06/11/2018 5:[address] 06/11/18 17:44 Impression: Pattern remains suspicious for active intraluminal hemorrhage involving the proximal left colon. Diverticulosis without CT evidence of acute diverticulitis. Anastomotic suture material at the rectosigmoid colon. Fluid level within the distended rectosigmoid colon at this level. Left adnexal mass re-identified, possibly fibroid. Additional findings as above. Aneurysmal dilatation of the infrarenal abdominal aorta. Additional incidental findings as above. Review of Systems - Review of Systems Review of Systems: 12 point ROS obtained and noted as in HPI Critical Care Progress Note - Prophylaxis GI Prophylaxis GI: PPI - Prophylaxis DVT Prophylaxis DVT: SCDs - Nutrition Nutrition: Nutrition Category Date Time Status NPO Diet [DIET] Diets 06/11/18 Breakfast Active Assessment/Plan - Assessment and Plan (Free Text) Assessment: Patient is an 82 yo female w/ arthritis, prior hx of gi bleed, diverticulosis, HTN, angina, and HLD admitted to ICU for evaluation of rectal bleed. Neuro awake alert oriented; no active issues Pulm no active issues maintain spO2>92 robitussin CV Crestor, Propanolol, Hydralazine GI active rectal bleed- bleeding scan shows active gi bleed at distal transverse colon CT angio- active intraluminal hemorrhagee involving the left proximal colon endoscopy in am; patient npo; Protonix drip avoid nsaids given 2 units of pRBCs Renal Multivitamins Repeat CMP in AM ID no active issues Disposition: active GI bleed seen on CT angio and bleeding scan, pending endoscopy with GI, continue IV protonix drip PGY-1 Markel Bear Medical Management discussed with Dr. Saldana <Tr Saldana S - Last Filed: 06/12/18 16:52> CCU Objective - Vital Signs / Intake & Output Intake and Output (Last 8hrs): Intake & Output 06/12/18 06/12/18 06/12/18 06:59 14:59 22:59 Intake Total 1480 890 Output Total 1 400 Balance 1479 490 Weight 128 lb Intake: IV 250 Intake, IV Amount 580 140 Right Antecubital 500 100 Right Hand 80 40 Blood Product 850 450 Red Blood Cells Cpd As1 0 325 Lr Unit [id number] Red Blood Cells Cpd As1 325 Lr Unit [id number] Other 50 50 Red Blood Cells Cpd As1 50 Lr Unit [id number] Red Blood Cells Cpd As1 50 Lr Unit [id number] Output: Urine 400 Urine, Voided 400 Urine/Stool Mix 1 Other: # Voids Urine, Voided 1 1 - Medications Active Medications: Active Medications Generic Name Dose Route Start Last Admin Trade Name Freq PRN Reason Stop Dose Admin Bisacodyl 5 mg 06/12/18 18:00 Dulcolax PO 06/12/18 18:01 ONCE ONE Guaifenesin/Dextromethorphan 10 ml 06/10/18 23:21 Robitussin Dm PO TID PRN Cough and congestion Hydralazine HCl 50 mg 06/11/18 06:00 06/12/18 15:15 Apresoline PO 50 mg Q8 SANDY Administration Pantoprazole Sodium 80 mg/ 100 mls @ 10 mls/hr 06/11/18 16:00 06/12/18 15:17 Sodium Chloride IVPB 10 mls/hr .Q10H SANDY Administration 8 MG/HR Multivitamins 1 tab 06/12/18 10:00 06/12/18 10:50 Hexavitamin PO Not Given DAILY SANDY Polyethylene Glycol/Electrolytes 4,000 ml 06/13/18 14:00 Golytely PO 06/13/18 14:01 ONCE ONE Propranolol HCl 20 mg 06/11/18 10:00 06/12/18 10:50 Inderal PO Not Given DAILY SANDY Rosuvastatin Calcium 5 mg 06/11/18 22:00 06/11/18 22:00 Crestor PO Not Given HS SANDY - Patient Studies Lab Studies: Lab Studies 06/12/18 06/12/18 06/12/18 Range/Units 09:20 01:18 01:18 WBC 5.2 (4.8-10.8) K/uL RBC 3.86 (3.80-5.20) Mil/uL Hgb 11.1 D (11.0-16.0) g/dL Hct 32.7 L (34.0-47.0) % MCV 84.7 (81.0-99.0) fL MCH 28.9 (27.0-31.0) pg MCHC 34.1 (33.0-37.0) g/dL RDW 16.7 H (11.5-14.5) % Plt Count 135 (130-400) K/uL MPV 8.5 (7.2-11.7) fL Neut % (Auto) (50.0-75.0) % Lymph % (Auto) (20.0-40.0) % [place] % (Auto) (0.0-10.0) % Eos % (Auto) (0.0-4.0) % Baso % (Auto) (0.0-2.0) % Neut # (Auto) (1.8-7.0) K/uL Lymph # (Auto) (1.0-4.3) K/uL [place] # (Auto) (0.0-0.8) K/uL Eos # (Auto) (0.0-0.7) K/uL Baso # (Auto) (0.0-0.2) K/uL PT 12.5 H (9.7-12.2) SECONDS INR 1.1 APTT 34 D (21-34) SECONDS Sodium 137 (132-148) mmol/L Potassium 4.0 (3.6-5.2) mmol/L Chloride 110 H (98-107) mmol/L Carbon Dioxide 21 L (22-30) mmol/L Anion Gap 11 (10-20) BUN 18 H (7-17) mg/dL Creatinine 0.8 (0.7-1.2) mg/dL Est GFR ( Amer) > 60 Est GFR (Non-Af Amer) > 60 POC Glucose (mg/dL) (65-110) mg/dL Random Glucose 128 H (65-105) mg/dL Calcium 7.8 L (8.6-10.4) mg/dl Phosphorus 2.5 (2.5-4.5) mg/dL Magnesium 1.9 (1.6-2.3) mg/dL Total Bilirubin 0.7 (0.2-1.3) mg/dL AST 20 (14-36) U/L ALT 22 (9-52) U/L Alkaline Phosphatase 51 (38-126) U/L Total Protein 5.5 L (6.3-8.3) g/dL Albumin 2.9 L (3.5-5.0) g/dL Globulin 2.6 (2.2-3.9) gm/dL Albumin/Globulin Ratio 1.1 (1.0-2.1) Blood Type Antibody Screen 06/12/18 06/12/18 06/11/18 Range/Units 01:18 00:53 21:27 WBC 6.0 (4.8-10.8) K/uL RBC 2.78 L (3.80-5.20) Mil/uL Hgb 7.6 L (11.0-16.0) g/dL Hct 23.0 L (34.0-47.0) % MCV 82.8 (81.0-99.0) fL MCH 27.4 (27.0-31.0) pg MCHC 33.2 (33.0-37.0) g/dL RDW 19.1 H (11.5-14.5) % Plt Count 157 (130-400) K/uL MPV 8.4 (7.2-11.7) fL Neut % (Auto) 58.8 (50.0-75.0) % Lymph % (Auto) 33.9 (20.0-40.0) % [place] % (Auto) 5.6 (0.0-10.0) % Eos % (Auto) 0.9 (0.0-4.0) % Baso % (Auto) 0.8 (0.0-2.0) % Neut # (Auto) 3.5 (1.8-7.0) K/uL Lymph # (Auto) 2.0 (1.0-4.3) K/uL [place] # (Auto) 0.3 (0.0-0.8) K/uL Eos # (Auto) 0.1 (0.0-0.7) K/uL Baso # (Auto) 0.0 (0.0-0.2) K/uL PT (9.7-12.2) SECONDS INR APTT (21-34) SECONDS Sodium 138 (132-148) mmol/L Potassium 3.8 (3.6-5.2) mmol/L Chloride 110 H (98-107) mmol/L Carbon Dioxide 23 (22-30) mmol/L Anion Gap 8 L (10-20) BUN 19 H (7-17) mg/dL Creatinine 0.9 (0.7-1.2) mg/dL Est GFR ( Amer) > 60 Est GFR (Non-Af Amer) 60 POC Glucose (mg/dL) 147 H (65-110) mg/dL Random Glucose 113 H (65-105) mg/dL Calcium 7.9 L (8.6-10.4) mg/dl Phosphorus 2.3 L (2.5-4.5) mg/dL Magnesium 1.9 (1.6-2.3) mg/dL Total Bilirubin (0.2-1.3) mg/dL AST (14-36) U/L ALT (9-52) U/L Alkaline Phosphatase (38-126) U/L Total Protein (6.3-8.3) g/dL Albumin (3.5-5.0) g/dL Globulin (2.2-3.9) gm/dL Albumin/Globulin Ratio (1.0-2.1) Blood Type Antibody Screen 06/11/18 06/10/18 Range/Units 21:27 14:32 WBC 5.8 (4.8-10.8) K/uL RBC 3.13 L (3.80-5.20) Mil/uL Hgb 8.5 L (11.0-16.0) g/dL Hct 25.8 L (34.0-47.0) % MCV 82.3 (81.0-99.0) fL MCH 27.2 (27.0-31.0) pg MCHC 33.1 (33.0-37.0) g/dL RDW 19.9 H (11.5-14.5) % Plt Count 166 (130-400) K/uL MPV 7.8 (7.2-11.7) fL Neut % (Auto) (50.0-75.0) % Lymph % (Auto) (20.0-40.0) % [place] % (Auto) (0.0-10.0) % Eos % (Auto) (0.0-4.0) % Baso % (Auto) (0.0-2.0) % Neut # (Auto) (1.8-7.0) K/uL Lymph # (Auto) (1.0-4.3) K/uL [place] # (Auto) (0.0-0.8) K/uL Eos # (Auto) (0.0-0.7) K/uL Baso # (Auto) (0.0-0.2) K/uL PT (9.7-12.2) SECONDS INR APTT (21-34) SECONDS Sodium (132-148) mmol/L Potassium (3.6-5.2) mmol/L Chloride (98-107) mmol/L Carbon Dioxide (22-30) mmol/L Anion Gap (10-20) BUN (7-17) mg/dL Creatinine (0.7-1.2) mg/dL Est GFR ( Amer) Est GFR (Non-Af Amer) POC Glucose (mg/dL) (65-110) mg/dL Random Glucose (65-105) mg/dL Calcium (8.6-10.4) mg/dl Phosphorus (2.5-4.5) mg/dL Magnesium (1.6-2.3) mg/dL Total Bilirubin (0.2-1.3) mg/dL AST (14-36) U/L ALT (9-52) U/L Alkaline Phosphatase (38-126) U/L Total Protein (6.3-8.3) g/dL Albumin (3.5-5.0) g/dL Globulin (2.2-3.9) gm/dL Albumin/Globulin Ratio (1.0-2.1) Blood Type O POSITIVE Antibody Screen Negative Laboratory Results - last 24 hr 06/10/18 06/11/18 06/11/18 14:32 21:27 21:27 WBC 5.8 RBC 3.13 L Hgb 8.5 L Hct 25.8 L MCV 82.3 MCH 27.2 MCHC 33.1 RDW 19.9 H Plt Count 166 MPV 7.8 Neut % (Auto) Lymph % (Auto) [place] % (Auto) Eos % (Auto) Baso % (Auto) Neut # (Auto) Lymph # (Auto) [place] # (Auto) Eos # (Auto) Baso # (Auto) PT INR APTT Sodium 138 Potassium 3.8 Chloride 110 H Carbon Dioxide 23 Anion Gap 8 L BUN 19 H Creatinine 0.9 Est GFR ( Amer) > 60 Est GFR (Non-Af Amer) 60 POC Glucose (mg/dL) Random Glucose 113 H Calcium 7.9 L Phosphorus 2.3 L Magnesium 1.9 Total Bilirubin AST ALT Alkaline Phosphatase Total Protein Albumin Globulin Albumin/Globulin Ratio Blood Type O POSITIVE Antibody Screen Negative 06/12/18 06/12/18 06/12/18 00:53 01:18 01:18 WBC 6.0 RBC 2.78 L Hgb 7.6 L Hct 23.0 L MCV 82.8 MCH 27.4 MCHC 33.2 RDW 19.1 H Plt Count 157 MPV 8.4 Neut % (Auto) 58.8 Lymph % (Auto) 33.9 [place] % (Auto) 5.6 Eos % (Auto) 0.9 Baso % (Auto) 0.8 Neut # (Auto) 3.5 Lymph # (Auto) 2.0 [place] # (Auto) 0.3 Eos # (Auto) 0.1 Baso # (Auto) 0.0 PT INR APTT Sodium 137 Potassium 4.0 Chloride 110 H Carbon Dioxide 21 L Anion Gap 11 BUN 18 H Creatinine 0.8 Est GFR ( Amer) > 60 Est GFR (Non-Af Amer) > 60 POC Glucose (mg/dL) 147 H Random Glucose 128 H Calcium 7.8 L Phosphorus 2.5 Magnesium 1.9 Total Bilirubin 0.7 AST 20 ALT 22 Alkaline Phosphatase 51 Total Protein 5.5 L Albumin 2.9 L Globulin 2.6 Albumin/Globulin Ratio 1.1 Blood Type Antibody Screen 06/12/18 06/12/18 01:18 09:20 WBC 5.2 RBC 3.86 Hgb 11.1 D Hct 32.7 L MCV 84.7 MCH 28.9 MCHC 34.1 RDW 16.7 H Plt Count 135 MPV 8.5 Neut % (Auto) Lymph % (Auto) [place] % (Auto) Eos % (Auto) Baso % (Auto) Neut # (Auto) Lymph # (Auto) [place] # (Auto) Eos # (Auto) Baso # (Auto) PT 12.5 H INR 1.1 APTT 34 D Sodium Potassium Chloride Carbon Dioxide Anion Gap BUN Creatinine Est GFR ( Amer) Est GFR (Non-Af Amer) POC Glucose (mg/dL) Random Glucose Calcium Phosphorus Magnesium Total Bilirubin AST ALT Alkaline Phosphatase Total Protein Albumin Globulin Albumin/Globulin Ratio Blood Type Antibody Screen Radiology Impressions: Radiology Impressions GI Bleed Scan Nuclear Medicine 06/11/18 15:44 IMPRESSION: Compatible with active gastrointestinal bleeding at the distal transverse colon extending into the left hemicolon and sigmoid segment. Borderline pattern of hemorrhage at the sigmoid colon as well but this is not borne out in prior CT abdomen 06/10/2018. Clinically correlate further. Findings discussed with Dr. Ralph with written down and read back verification preliminarily prior to this report 06/11/2018 5:[address] 06/11/18 17:44 Impression: Pattern remains suspicious for active intraluminal hemorrhage involving the proximal left colon. Diverticulosis without CT evidence of acute diverticulitis. Anastomotic suture material at the rectosigmoid colon. Fluid level within the distended rectosigmoid colon at this level. Left adnexal mass re-identified, possibly fibroid. Additional findings as above. Aneurysmal dilatation of the infrarenal abdominal aorta. Additional incidental findings as above. Critical Care Progress Note - Nutrition Nutrition: Nutrition Category Date Time Status Liquid Diet [DIET] Diets 06/12/18 Lunch Active NPO Diet [DIET] Diets 06/14/18 Breakfast Active Attending/Attestation - Attestation I have personally seen and examined this patient.: Yes I have fully participated in the care of the patient.: Yes I have reviewed all pertinent clinical information: Yes Notes (Text): 06/12/18 16:50 Patient seen and examined in the intensive care unit. Overnight bright red blood per rectum H&H stable status post colonoscopy with no active bleeding and poor prep Repeat colonoscopy in 2 days
[2018-06-12 09:31] LABS: MEAN CELL VOLUME 84.7 fL (81.0-99.0); MEAN CORPUSCULAR HEMOGLOBIN 28.9 pg (27.0-31.0); MEAN CORPUSCULAR HGB CONC 34.1 g/dL (33.0-37.0); MEAN PLATELET VOLUME 8.5 fL (7.2-11.7); RBC 3.86 Mil/uL (3.80-5.20); RED CELL DISTRIBUTION WIDTH 16.7 % (11.5-14.5); WHITE BLOOD COUNT 5.2 K/uL (4.8-10.8)
[2018-06-12 09:33] LABS: HEMOGLOBIN 11.1 g/dL (11.0-16.0)
[2018-06-12] MEDS: Multiple Vitamins Tab PO SCH (10:50)
[2018-06-12] MEDS ORDERED: Propofol 10 mg/ml Inj (20 ML) ONE (11:22)
--- NOTE | 2018-06-12 14:15 | PN ---
DATE: 06/12/2018 LOCATION: ICU 18. The patient is seen and examined, scheduled for potential upper and lower endoscopy today. Please see endoscopy report. Rose Aaron MD
--- NOTE | 2018-06-12 14:22 | CP.PCM.PN ---
Subjective - Date & Time of Evaluation Date of Evaluation: 06/12/18 Time of Evaluation: 14:21 - Subjective Subjective: Patient is seen and examined No events overnight Objective - Vital Signs/Intake and Output Vital Signs (last 24 hours): Temp Pulse Resp BP Pulse Ox 98.3 F 83 21 149/65 100 06/12/18 11:35 06/12/18 11:35 06/12/18 11:35 06/12/18 11:35 06/12/18 11:35 Intake and Output: 06/12/18 06/12/18 06:59 18:59 Intake Total 1620 890 Output Total 3 400 Balance 1617 490 - Medications Medications: Current Medications Bisacodyl (Dulcolax) 5 mg PO ONCE ONE Stop: 06/12/18 18:01 Guaifenesin/Dextromethorphan (Robitussin Dm) 10 ml PO TID PRN PRN Reason: Cough and congestion Hydralazine HCl (Apresoline) 50 mg PO Q8 [facility] Last Admin: 06/12/18 06:00 Dose: Not Given Pantoprazole Sodium 80 mg/ (Sodium Chloride) 100 mls @ 10 mls/hr IVPB .Q10H [facility] Last Admin: 06/12/18 01:30 Dose: 10 mls/hr Multivitamins (Hexavitamin) 1 tab PO DAILY [facility] Last Admin: 06/12/18 10:50 Dose: Not Given Polyethylene Glycol/Electrolytes (Golytely) 4,000 ml PO ONCE ONE Stop: 06/13/18 14:01 Propranolol HCl (Inderal) 20 mg PO DAILY [facility] Last Admin: 06/12/18 10:50 Dose: Not Given Rosuvastatin Calcium (Crestor) 5 mg PO [facility] Last Admin: 06/11/18 22:00 Dose: Not Given - Labs Labs: 06/12/18 09:20 06/12/18 01:18 PT 12.5 SECONDS (9.7-12.2) H 06/12/18 01:18 INR 1.1 06/12/18 01:18 APTT 34 SECONDS (21-34) D 06/12/18 01:18 - Head Exam Head Exam: NORMAL INSPECTION - Eye Exam Eye Exam: Normal appearance - ENT Exam ENT Exam: Mucous Membranes Moist - Respiratory Exam Respiratory Exam: Clear to Ausculation Bilateral - Cardiovascular Exam Cardiovascular Exam: REGULAR RHYTHM, +S1, +S2 - GI/Abdominal Exam GI & Abdominal Exam: Soft, Normal Bowel Sounds - Extremities Exam Extremities Exam: Normal Inspection - Neurological Exam Neurological Exam: Alert, Oriented x3 Assessment and Plan (1) Abdominal pain Status: Acute (2) Gastrointestinal hemorrhage Status: Acute (3) Uncontrolled hypertension Status: Acute - Assessment and Plan (Free Text) Plan: Transfuse PRBC S/P EGD that shows no active bleed S/P colonoscopy that shows poor prepold blood seen in: IV PPI Blood pressure control DVT/GI prophylaxis
[2018-06-12] MEDS ORDERED: Bisacodyl 5mg EC Tab PO ONE (18:00)
[2018-06-12 18:58] LABS: MEAN CELL VOLUME 84.6 fL (81.0-99.0); MEAN CORPUSCULAR HEMOGLOBIN 28.1 pg (27.0-31.0); MEAN CORPUSCULAR HGB CONC 33.2 g/dL (33.0-37.0); MEAN PLATELET VOLUME 8.3 fL (7.2-11.7); RBC 3.56 Mil/uL (3.80-5.20); RED CELL DISTRIBUTION WIDTH 16.7 % (11.5-14.5); WHITE BLOOD COUNT 5.8 K/uL (4.8-10.8)
[2018-06-13] MEDS: Pantoprazole 80 MG in Sodium Chloride 0.9% 100 ML IVPB SCH (01:00)
[2018-06-13 06:36] LABS: BASO % 0.1 % (0.0-2.0); EOS # 0.1 K/uL (0.0-0.7); EOS % 1.8 % (0.0-4.0); HEMOGLOBIN 9.3 g/dL (11.0-16.0); LYMPH # 1.5 K/uL (1.0-4.3); LYMPH % 29.4 % (20.0-40.0); MEAN CELL VOLUME 84.4 fL (81.0-99.0); MEAN CORPUSCULAR HEMOGLOBIN 28.6 pg (27.0-31.0); MEAN CORPUSCULAR HGB CONC 33.9 g/dL (33.0-37.0); MEAN PLATELET VOLUME 8.6 fL (7.2-11.7); MONO # 0.5 K/uL (0.0-0.8); MONO % 8.6 % (0.0-10.0); NEUT # 3.2 K/uL (1.8-7.0); NEUT % 60.1 % (50.0-75.0); NRBC % 0.1 % (0.0-2.0); RBC 3.24 Mil/uL (3.80-5.20); WHITE BLOOD COUNT 5.3 K/uL (4.8-10.8)
[2018-06-13 06:57] LABS: ALB/GLOB RATIO 1.2 (1.0-2.1); ALT/SGPT 27 U/L (9-52); AST/SGOT 29 U/L (14-36); BLOOD UREA NITROGEN 14 mg/dL (7-17); CALCIUM 8.1 mg/dl (8.6-10.4); GFR NON-AFRICAN AMERICAN 60
[2018-06-13] MEDS: Multiple Vitamins Tab PO SCH (09:40)
--- NOTE | 2018-06-13 12:23 | CP.PCM.PN ---
Subjective - Date & Time of Evaluation Date of Evaluation: 06/13/18 Time of Evaluation: 06:45 - Subjective Subjective: Surgery: Dr. Thomas Pt seen and examined. No acute overnight events. Pt states she feels well and denies abdominal pain. She does admit to one episode of bloody bowel movement with small clots. Pt underwent colonoscopy yesterday but due to poor prep pt states it will be repeated tomorrow. She admits to tolerating her diet and denie s any episodes of nausea/vomiting. Denies fevers/chills. Objective - Vital Signs/Intake and Output Vital Signs (last 24 hours): Temp Pulse Resp BP Pulse Ox 98.1 F 73 19 135/90 97 06/13/18 04:00 06/13/18 07:00 06/13/18 07:00 06/13/18 05:58 06/13/18 07:00 Intake and Output: 06/13/18 06/13/18 06:59 18:59 Intake Total 170 10 Output Total 425 Balance -255 10 - Medications Medications: Current Medications Guaifenesin/Dextromethorphan (Robitussin Dm) 10 ml PO TID PRN PRN Reason: Cough and congestion Hydralazine HCl (Apresoline) 50 mg PO Q8 [facility] Last Admin: 06/13/18 06:21 Dose: 50 mg Multivitamins (Hexavitamin) 1 tab PO DAILY [facility] Last Admin: 06/13/18 09:40 Dose: 1 tab Pantoprazole Sodium (Protonix Inj) 40 mg IVP DAILY [facility] Polyethylene Glycol/Electrolytes (Golytely) 4,000 ml PO ONCE ONE Stop: 06/13/18 14:01 Propranolol HCl (Inderal) 20 mg PO DAILY [facility] Last Admin: 06/13/18 09:40 Dose: 20 mg Rosuvastatin Calcium (Crestor) 5 mg PO HS [facility] Last Admin: 06/12/18 21:34 Dose: 5 mg - Labs Labs: 06/13/18 06:26 06/13/18 06:26 PT 12.5 SECONDS (9.7-12.2) H 06/12/18 01:18 INR 1.1 06/12/18 01:18 APTT 34 SECONDS (21-34) D 06/12/18 01:18 - Constitutional Appears: Well, No Acute Distress - Head Exam Head Exam: ATRAUMATIC, NORMOCEPHALIC - Eye Exam Eye Exam: Normal appearance - ENT Exam ENT Exam: Mucous Membranes Moist - Respiratory Exam Respiratory Exam: NORMAL BREATHING PATTERN - Cardiovascular Exam Cardiovascular Exam: RRR - GI/Abdominal Exam GI & Abdominal Exam: Soft. absent: Distended, Tenderness - Neurological Exam Neurological Exam: Alert, Awake, Oriented x3 - Skin Skin Exam: Dry, Warm Assessment and Plan - Assessment and Plan (Free Text) Assessment: 82F with LGIB Plan: - plan for repeat colonoscopy by GI tomorrow - cont to monitor H/H; currently stable - monitor bowel movements - no plan for surgical intervention at this time - d/w Dr. William Ewing
--- NOTE | 2018-06-13 13:25 | CP.PCM.PN ---
Subjective - Date & Time of Evaluation Date of Evaluation: 06/13/18 Time of Evaluation: 13:19 - Subjective Subjective: Patient is doing well, tolerating diet. She is passing some old blood clots per rectum. She has been HDS. Denies abdominal pain. No complaints at this time. Objective - Vital Signs/Intake and Output Vital Signs (last 24 hours): Temp Pulse Resp BP Pulse Ox 98.1 F 73 19 135/90 97 06/13/18 04:00 06/13/18 07:00 06/13/18 07:00 06/13/18 05:58 06/13/18 07:00 Intake and Output: 06/13/18 06/13/18 06:59 18:59 Intake Total 170 10 Output Total 425 Balance -255 10 - Medications Medications: Current Medications Guaifenesin/Dextromethorphan (Robitussin Dm) 10 ml PO TID PRN PRN Reason: Cough and congestion Hydralazine HCl (Apresoline) 50 mg PO Q8 [facility] Last Admin: 06/13/18 06:21 Dose: 50 mg Multivitamins (Hexavitamin) 1 tab PO DAILY [facility] Last Admin: 06/13/18 09:40 Dose: 1 tab Pantoprazole Sodium (Protonix Inj) 40 mg IVP DAILY [facility] Polyethylene Glycol/Electrolytes (Golytely) 4,000 ml PO ONCE ONE Stop: 06/13/18 14:01 Propranolol HCl (Inderal) 20 mg PO DAILY [facility] Last Admin: 06/13/18 09:40 Dose: 20 mg Rosuvastatin Calcium (Crestor) 5 mg PO HS [facility] Last Admin: 06/12/18 21:34 Dose: 5 mg - Labs Labs: 06/13/18 06:26 06/13/18 06:26 PT 12.5 SECONDS (9.7-12.2) H 06/12/18 01:18 INR 1.1 06/12/18 01:18 APTT 34 SECONDS (21-34) D 06/12/18 01:18 - Constitutional Appears: Well, Non-toxic - Head Exam Head Exam: ATRAUMATIC, NORMAL INSPECTION - ENT Exam ENT Exam: Mucous Membranes Moist, Normal Exam - Respiratory Exam Respiratory Exam: Clear to Ausculation Bilateral, NORMAL BREATHING PATTERN - Cardiovascular Exam Cardiovascular Exam: REGULAR RHYTHM, +S1, +S2 - GI/Abdominal Exam GI & Abdominal Exam: Soft, Normal Bowel Sounds. absent: Tenderness - Extremities Exam Extremities Exam: Normal Inspection. absent: Pedal Edema - Neurological Exam Neurological Exam: Alert, Awake, Oriented x3 - Psychiatric Exam Psychiatric exam: Normal Affect, Normal Mood - Skin Skin Exam: Normal Color, Warm Assessment and Plan - Assessment and Plan (Free Text) Assessment: #Acute blood loss anemia due to lower GI bleed #diverticulosis #h/o PUD #HTN PLAN: -s/p colonoscopy, EGD 06/12/17. No upper GI bleed. Significant amount of OLD blood seen in colon, no active bleeding. Unable to see source of bleeding due to poor visualization due to old blood. -GI bleeding and CTA A/P reviewed: source is from transverse colon. -Most likely lower GI bleed due to diverticular disease. Bleeding would be expected to slowly decrease over the next 48hrs. -Labs reviewed, acute anemia. s/p blood transfusion, now stable. -Continue PPI daily -Monitor Hb daily unless acute active bleeding. Transfuse to maintain Hb>7. -Avoid NSAIDs, anticoagulation -Plan for repeat colonoscopy tomorrow. -NPO PM
[2018-06-13 13:51] LABS: HEMOGLOBIN 8.8 g/dL (11.0-16.0); MEAN CELL VOLUME 86.1 fL (81.0-99.0); MEAN CORPUSCULAR HEMOGLOBIN 28.7 pg (27.0-31.0); MEAN CORPUSCULAR HGB CONC 33.4 g/dL (33.0-37.0); MEAN PLATELET VOLUME 8.5 fL (7.2-11.7); RBC 3.05 Mil/uL (3.80-5.20); RED CELL DISTRIBUTION WIDTH 17.3 % (11.5-14.5); WHITE BLOOD COUNT 5.7 K/uL (4.8-10.8)
--- NOTE | 2018-06-13 13:52 | CP.PCM.PN ---
Subjective - Date & Time of Evaluation Date of Evaluation: 06/13/18 Time of Evaluation: 13:52 - Subjective Subjective: Patient seen and examined No events overnight Objective - Vital Signs/Intake and Output Vital Signs (last 24 hours): Temp Pulse Resp BP Pulse Ox 98.1 F 73 19 135/90 97 06/13/18 04:00 06/13/18 07:00 06/13/18 07:00 06/13/18 05:58 06/13/18 07:00 Intake and Output: 06/13/18 06/13/18 06:59 18:59 Intake Total 170 10 Output Total 425 Balance -255 10 - Medications Medications: Current Medications Guaifenesin/Dextromethorphan (Robitussin Dm) 10 ml PO TID PRN PRN Reason: Cough and congestion Hydralazine HCl (Apresoline) 50 mg PO Q8 [facility] Last Admin: 06/13/18 06:21 Dose: 50 mg Multivitamins (Hexavitamin) 1 tab PO DAILY [facility] Last Admin: 06/13/18 09:40 Dose: 1 tab Pantoprazole Sodium (Protonix Inj) 40 mg IVP DAILY [facility] Polyethylene Glycol/Electrolytes (Golytely) 4,000 ml PO ONCE ONE Stop: 06/13/18 14:01 Propranolol HCl (Inderal) 20 mg PO DAILY [facility] Last Admin: 06/13/18 09:40 Dose: 20 mg Rosuvastatin Calcium (Crestor) 5 mg PO HS [facility] Last Admin: 06/12/18 21:34 Dose: 5 mg - Labs Labs: 06/13/18 06:26 06/13/18 06:26 PT 12.5 SECONDS (9.7-12.2) H 06/12/18 01:18 INR 1.1 06/12/18 01:18 APTT 34 SECONDS (21-34) D 06/12/18 01:18 - Head Exam Head Exam: NORMAL INSPECTION - Eye Exam Eye Exam: Normal appearance - ENT Exam ENT Exam: Mucous Membranes Moist - Respiratory Exam Respiratory Exam: Clear to Ausculation Bilateral - Cardiovascular Exam Cardiovascular Exam: REGULAR RHYTHM, +S1, +S2 - GI/Abdominal Exam GI & Abdominal Exam: Soft, Normal Bowel Sounds - Extremities Exam Extremities Exam: Normal Inspection Assessment and Plan (1) Abdominal pain Status: Acute (2) Gastrointestinal hemorrhage Status: Acute (3) Uncontrolled hypertension Status: Acute - Assessment and Plan (Free Text) Plan: Follow CBC Transfuse as needed For repeat colonoscopy in the morning Surgery follow-up DVT/GI prophylaxis
[2018-06-13] MEDS ORDERED: Peg-Electrolyte Oral Soln 4L (Golytely) PO ONE (14:00)
--- NOTE | 2018-06-13 16:48 | CP.CCUPN ---
<Markel Bear - Last Filed: 06/13/18 16:46> CCU Subjective - Physician Review Events Since Last Encounter (Free Text): 06/13/18 16:46 moderate blood clots in bowel movements overnight; however patient asymptomatic for pain or anemia Subjective (Free Text): Critical Care Progress note for Dr. Valverde's service Patient seen and examined at bedside. Patient offers no acute complaints. Patient denies fevers, chills, chest pain, sob, n/v, dysuria. Critical Care Time Spent (in minutes): 35 CCU Objective - Vital Signs / Intake & Output Vital Signs (Last 4 hours): Vital Signs Temp Pulse Resp BP Pulse Ox 06/13/18 16:00 99.1 F 67 18 94 L 06/13/18 15:58 65 22 130/53 L 97 06/13/18 15:00 80 23 06/13/18 14:58 60 24 123/53 L 98 06/13/18 14:01 75 16 112/50 L 98 06/13/18 14:00 77 12 98 06/13/18 13:00 76 14 92 L 06/13/18 12:59 70 10 L 112/65 98 Intake and Output (Last 8hrs): Intake & Output 06/13/18 06/13/18 06/13/18 06:59 14:59 22:59 Intake Total 80 1570 640 Output Total 275 800 Balance -195 770 640 Weight 128 lb Intake: Intake, IV Amount 80 50 Right Antecubital 70 Right Upper arm 10 50 Oral 1520 640 Output: Urine 275 800 Urine, Voided 275 800 Other: # Voids Urine, Voided 1 # Bowel Movements 1 1 1 - Physical Exam Head: Positive for: Atraumatic, Normocephalic Pupils: Positive for: PERRL Extroacular Muscles: Positive for: EOMI Conjunctiva: Positive for: Normal Mouth: Positive for: Moist Mucous Membranes Respiratory/Chest: Positive for: Clear to Auscultation, Good Air Exchange. Negative for: Respiratory Distress, Accessory Muscle Use, Wheezes, Rhonchi Cardiovascular: Positive for: Regular Rate and Rhythm, Normal S1, S2. Negative for: Murmurs, Irregular Rhythm Abdomen: Positive for: Normal Bowel Sounds. Negative for: Tenderness, D istention, Peritoneal Signs Upper Extremity: Positive for: Normal Inspection. Negative for: Cyanosis, Edema Lower Extremity: Positive for: Normal Inspection. Negative for: Edema Neurological: Positive for: GCS=15 Skin: Positive for: Warm, Normal Color Psychiatric: Positive for: Alert, Oriented x 3 - Medications Active Medications: Active Medications Generic Name Dose Route Start Last Admin Trade Name Freq PRN Reason Stop Dose Admin Guaifenesin/Dextromethorphan 10 ml 06/10/18 23:21 Robitussin Dm PO TID PRN Cough and congestion Hydralazine HCl 50 mg 06/11/18 06:00 06/13/18 14:28 Apresoline PO 50 mg Q8 [facility] Administration Multivitamins 1 tab 06/12/18 10:00 06/13/18 09:40 Hexavitamin PO 1 tab DAILY [facility] Administration Pantoprazole Sodium 40 mg 06/14/18 10:00 Protonix Inj IVP DAILY [facility] Propranolol HCl 20 mg 06/11/18 10:00 06/13/18 09:40 Inderal PO 20 mg DAILY [facility] Administration Rosuvastatin Calcium 5 mg 06/11/18 22:00 06/12/18 21:34 Crestor PO 5 mg HS [facility] Administration - Patient Studies Lab Studies: Microbiology Studies 06/11/18 15:21 MRSA Culture (Admit) - Final Naris MRSA NOT DETECTED Lab Studies 06/13/18 06/13/18 06/13/18 Range/Units 13:47 06:26 06:26 WBC 5.7 5.3 (4.8-10.8) K/uL RBC 3.05 L 3.24 L (3.80-5.20) Mil/uL Hgb 8.8 L 9.3 L (11.0-16.0) g/dL Hct 26.3 L 27.3 L (34.0-47.0) % MCV 86.1 84.4 (81.0-99.0) fL MCH 28.7 28.6 (27.0-31.0) pg MCHC 33.4 33.9 (33.0-37.0) g/dL RDW 17.3 H 17.0 H (11.5-14.5) % Plt Count 136 133 (130-400) K/uL MPV 8.5 8.6 (7.2-11.7) fL Neut % (Auto) 60.1 (50.0-75.0) % Lymph % (Auto) 29.4 (20.0-40.0) % Addison % (Auto) 8.6 (0.0-10.0) % Eos % (Auto) 1.8 (0.0-4.0) % Baso % (Auto) 0.1 (0.0-2.0) % Neut # (Auto) 3.2 (1.8-7.0) K/uL Lymph # (Auto) 1.5 (1.0-4.3) K/uL Addison # (Auto) 0.5 (0.0-0.8) K/uL Eos # (Auto) 0.1 (0.0-0.7) K/uL Baso # (Auto) 0.0 (0.0-0.2) K/uL Sodium 139 (132-148) mmol/L Potassium 3.6 (3.6-5.2) mmol/L Chloride 108 H (98-107) mmol/L Carbon Dioxide 25 (22-30) mmol/L Anion Gap 9 L (10-20) BUN 14 (7-17) mg/dL Creatinine 0.9 (0.7-1.2) mg/dL Est GFR ( Amer) > 60 Est GFR (Non-Af Amer) 60 Random Glucose 94 D (65-105) mg/dL Calcium 8.1 L (8.6-10.4) mg/dl Phosphorus 2.3 L (2.5-4.5) mg/dL Magnesium 1.7 (1.6-2.3) mg/dL Total Bilirubin 1.0 (0.2-1.3) mg/dL AST 29 (14-36) U/L ALT 27 (9-52) U/L Alkaline Phosphatase 49 (38-126) U/L Total Protein 5.6 L (6.3-8.3) g/dL Albumin 3.0 L (3.5-5.0) g/dL Globulin 2.6 (2.2-3.9) gm/dL Albumin/Globulin Ratio 1.2 (1.0-2.1) 06/12/18 Range/Units 18:55 WBC 5.8 (4.8-10.8) K/uL RBC 3.56 L (3.80-5.20) Mil/uL Hgb 10.0 L (11.0-16.0) g/dL Hct 30.1 L (34.0-47.0) % MCV 84.6 (81.0-99.0) fL MCH 28.1 (27.0-31.0) pg MCHC 33.2 (33.0-37.0) g/dL RDW 16.7 H (11.5-14.5) % Plt Count 132 (130-400) K/uL MPV 8.3 (7.2-11.7) fL Neut % (Auto) (50.0-75.0) % Lymph % (Auto) (20.0-40.0) % Addison % (Auto) (0.0-10.0) % Eos % (Auto) (0.0-4.0) % Baso % (Auto) (0.0-2.0) % Neut # (Auto) (1.8-7.0) K/uL Lymph # (Auto) (1.0-4.3) K/uL Addison # (Auto) (0.0-0.8) K/uL Eos # (Auto) (0.0-0.7) K/uL Baso # (Auto) (0.0-0.2) K/uL Sodium (132-148) mmol/L Potassium (3.6-5.2) mmol/L Chloride (98-107) mmol/L Carbon Dioxide (22-30) mmol/L Anion Gap (10-20) BUN (7-17) mg/dL Creatinine (0.7-1.2) mg/dL Est GFR ( Amer) Est GFR (Non-Af Amer) Random Glucose (65-105) mg/dL Calcium (8.6-10.4) mg/dl Phosphorus (2.5-4.5) mg/dL Magnesium (1.6-2.3) mg/dL Total Bilirubin (0.2-1.3) mg/dL AST (14-36) U/L ALT (9-52) U/L Alkaline Phosphatase (38-126) U/L Total Protein (6.3-8.3) g/dL Albumin (3.5-5.0) g/dL Globulin (2.2-3.9) gm/dL Albumin/Globulin Ratio (1.0-2.1) Laboratory Results - last 24 hr 06/12/18 06/13/18 06/13/18 18:55 06:26 06:26 WBC 5.8 5.3 RBC 3.56 L 3.24 L Hgb 10.0 L 9.3 L Hct 30.1 L 27.3 L MCV 84.6 84.4 MCH 28.1 28.6 MCHC 33.2 33.9 RDW 16.7 H 17.0 H Plt Count 132 133 MPV 8.3 8.6 Neut % (Auto) 60.1 Lymph % (Auto) 29.4 Addison % (Auto) 8.6 Eos % (Auto) 1.8 Baso % (Auto) 0.1 Neut # (Auto) 3.2 Lymph # (Auto) 1.5 Addison # (Auto) 0.5 Eos # (Auto) 0.1 Baso # (Auto) 0.0 Sodium 139 Potassium 3.6 Chloride 108 H Carbon Dioxide 25 Anion Gap 9 L BUN 14 Creatinine 0.9 Est GFR ( Amer) > 60 Est GFR (Non-Af Amer) 60 Random Glucose 94 D Calcium 8.1 L Phosphorus 2.3 L Magnesium 1.7 Total Bilirubin 1.0 AST 29 ALT 27 Alkaline Phosphatase 49 Total Protein 5.6 L Albumin 3.0 L Globulin 2.6 Albumin/Globulin Ratio 1.2 06/13/18 13:47 WBC 5.7 RBC 3.05 L Hgb 8.8 L Hct 26.3 L MCV 86.1 MCH 28.7 MCHC 33.4 RDW 17.3 H Plt Count 136 MPV 8.5 Neut % (Auto) Lymph % (Auto) Addison % (Auto) Eos % (Auto) Baso % (Auto) Neut # (Auto) Lymph # (Auto) Addison # (Auto) Eos # (Auto) Baso # (Auto) Sodium Potassium Chloride Carbon Dioxide Anion Gap BUN Creatinine Est GFR ( Amer) Est GFR (Non-Af Amer) Random Glucose Calcium Phosphorus Magnesium Total Bilirubin AST ALT Alkaline Phosphatase Total Protein Albumin Globulin Albumin/Globulin Ratio Review of Systems - Review of Systems Review of Systems: 12 point ROs obtained and noted as in HPI Critical Care Progress Note - Extremities/Vascular Does the Patient have a Central Venous Catheter?: No Does the Patient need a Central Venous Catheter?: No Does the Patient have a Matthews Catheter?: No Does the Patient need a Matthews Catheter?: No - Prophylaxis GI Prophylaxis GI: PPI - Nutrition Nutrition: Nutrition Category Date Time Status Liquid Diet [DIET] Diets 06/12/18 Lunch Active NPO Diet [DIET] Diets 06/14/18 Breakfast Active Assessment/Plan - Assessment and Plan (Free Text) Assessment: Patient is an 82 yo female w/ arthritis, prior hx of gi bleed, diverticulosis, HTN, angina, and HLD admitted to ICU for evaluation of rectal bleed. Neuro awake alert oriented; no active issues Pulm no active issues maintain spO2>92 robitussin CV Crestor, Propanolol, Hydralazine GI active rectal bleed- bleeding scan shows active gi bleed at distal transverse colon CT angio- active intraluminal hemorrhagee involving the left proximal colon CSPY in AM with prep; Protonix drip avoid nsaids Heme H&H stable hemodynamics stable Renal Multivitamins Repeat CMP in AM ID no active issues Disposition: active GI bleed seen on CT angio and bleeding scan, s/p colonoscopy poorly prepped; repeat cspy in AM with colon prep initiated today DVT ppx: Contraindicated in setting of active GI bleed GI ppx: Protonix drip PGY-1 [facility] Medical Management discussed with Dr. Valverde <Dave Valverde - Last Filed: 06/13/18 21:10> CCU Objective - Vital Signs / Intake & Output Vital Signs (Last 4 hours): Vital Signs Temp Pulse Resp BP Pulse Ox 06/13/18 20:00 98.2 F 72 18 127/63 98 06/13/18 19:00 61 20 96 06/13/18 18:58 66 22 122/68 98 06/13/18 18:00 72 22 92 L 06/13/18 17:58 66 22 125/60 99 Intake and Output (Last 8hrs): Intake & Output 06/13/18 06/13/18 06/13/18 06:59 14:59 22:59 Intake Total 80 1570 1520 Output Total 275 800 0 Balance -138 349 7370 Weight 128 lb Intake: Intake, IV Amount 80 50 Right Antecubital 70 Right Upper arm 10 50 Oral 1520 1520 Output: Urine 275 800 0 Urine, Voided 275 800 0 Other: # Voids Urine, Voided 1 # Bowel Movements 1 1 1 - Medications Active Medications: Active Medications Generic Name Dose Route Start Last Admin Trade Name Freq PRN Reason Stop Dose Admin Guaifenesin/Dextromethorphan 10 ml 06/10/18 23:21 Robitussin Dm PO TID PRN Cough and congestion Hydralazine HCl 50 mg 06/11/18 06:00 06/13/18 14:28 Apresoline PO 50 mg Q8 [facility] Administration Multivitamins 1 tab 06/12/18 10:00 06/13/18 09:40 Hexavitamin PO 1 tab DAILY [facility] Administration Pantoprazole Sodium 40 mg 06/14/18 10:00 Protonix Inj IVP DAILY [facility] Propranolol HCl 20 mg 06/11/18 10:00 06/13/18 09:40 Inderal PO 20 mg DAILY [facility] Administration Rosuvastatin Calcium 5 mg 06/11/18 22:00 06/12/18 21:34 Crestor PO 5 mg HS [facility] Administration - Patient Studies Lab Studies: Microbiology Studies 06/11/18 15:21 MRSA Culture (Admit) - Final Naris MRSA NOT DETECTED Lab Studies 06/13/18 06/13/18 06/13/18 Range/Units 13:47 06:26 06:26 WBC 5.7 5.3 (4.8-10.8) K/uL RBC 3.05 L 3.24 L (3.80-5.20) Mil/uL Hgb 8.8 L 9.3 L (11.0-16.0) g/dL Hct 26.3 L 27.3 L (34.0-47.0) % MCV 86.1 84.4 (81.0-99.0) fL MCH 28.7 28.6 (27.0-31.0) pg MCHC 33.4 33.9 (33.0-37.0) g/dL RDW 17.3 H 17.0 H (11.5-14.5) % Plt Count 136 133 (130-400) K/uL MPV 8.5 8.6 (7.2-11.7) fL Neut % (Auto) 60.1 (50.0-75.0) % Lymph % (Auto) 29.4 (20.0-40.0) % Addison % (Auto) 8.6 (0.0-10.0) % Eos % (Auto) 1.8 (0.0-4.0) % Baso % (Auto) 0.1 (0.0-2.0) % Neut # (Auto) 3.2 (1.8-7.0) K/uL Lymph # (Auto) 1.5 (1.0-4.3) K/uL Addison # (Auto) 0.5 (0.0-0.8) K/uL Eos # (Auto) 0.1 (0.0-0.7) K/uL Baso # (Auto) 0.0 (0.0-0.2) K/uL Sodium 139 (132-148) mmol/L Potassium 3.6 (3.6-5.2) mmol/L Chloride 108 H (98-107) mmol/L Carbon Dioxide 25 (22-30) mmol/L Anion Gap 9 L (10-20) BUN 14 (7-17) mg/dL Creatinine 0.9 (0.7-1.2) mg/dL Est GFR ( Amer) > 60 Est GFR (Non-Af Amer) 60 Random Glucose 94 D (65-105) mg/dL Calcium 8.1 L (8.6-10.4) mg/dl Phosphorus 2.3 L (2.5-4.5) mg/dL Magnesium 1.7 (1.6-2.3) mg/dL Total Bilirubin 1.0 (0.2-1.3) mg/dL AST 29 (14-36) U/L ALT 27 (9-52) U/L Alkaline Phosphatase 49 (38-126) U/L Total Protein 5.6 L (6.3-8.3) g/dL Albumin 3.0 L (3.5-5.0) g/dL Globulin 2.6 (2.2-3.9) gm/dL Albumin/Globulin Ratio 1.2 (1.0-2.1) Laboratory Results - last 24 hr 06/13/18 06/13/18 06/13/18 06:26 06:26 13:47 WBC 5.3 5.7 RBC 3.24 L 3.05 L Hgb 9.3 L 8.8 L Hct 27.3 L 26.3 L MCV 84.4 86.1 MCH 28.6 28.7 MCHC 33.9 33.4 RDW 17.0 H 17.3 H Plt Count 133 136 MPV 8.6 8.5 Neut % (Auto) 60.1 Lymph % (Auto) 29.4 Addison % (Auto) 8.6 Eos % (Auto) 1.8 Baso % (Auto) 0.1 Neut # (Auto) 3.2 Lymph # (Auto) 1.5 Addison # (Auto) 0.5 Eos # (Auto) 0.1 Baso # (Auto) 0.0 Sodium 139 Potassium 3.6 Chloride 108 H Carbon Dioxide 25 Anion Gap 9 L BUN 14 Creatinine 0.9 Est GFR ( Amer) > 60 Est GFR (Non-Af Amer) 60 Random Glucose 94 D Calcium 8.1 L Phosphorus 2.3 L Magnesium 1.7 Total Bilirubin 1.0 AST 29 ALT 27 Alkaline Phosphatase 49 Total Protein 5.6 L Albumin 3.0 L Globulin 2.6 Albumin/Globulin Ratio 1.2 Critical Care Progress Note - Nutrition Nutrition: Nutrition Category Date Time Status Liquid Diet [DIET] Diets 06/12/18 Lunch Active NPO Diet [DIET] Diets 06/14/18 Breakfast Active Attending/Attestation - Attestation I have personally seen and examined this patient.: Yes I have fully participated in the care of the patient.: Yes I have reviewed all pertinent clinical information: Yes Notes (Text): 06/13/18 21:10 Today: June The Patient was seen and examined at the bedside, Medical records reviewed, and management issues were discussed and formulated with the house staff. I have reviewed all the relevant clinical, laboratory, hemodynamic, radiographic data and medications Events reviewed Pain issues, skin care, head of the bed elevation, glycemic control were addressed. Agree with above resident's assessment and treatment plans of care as transcribed in Dr. Bear's note.
[2018-06-14 06:56] LABS: BASO % 0.5 % (0.0-2.0); EOS # 0.1 K/uL (0.0-0.7); EOS % 1.9 % (0.0-4.0); HEMOGLOBIN 8.7 g/dL (11.0-16.0); LYMPH # 1.5 K/uL (1.0-4.3); LYMPH % 32.1 % (20.0-40.0); MEAN CORPUSCULAR HEMOGLOBIN 28.2 pg (27.0-31.0); MEAN CORPUSCULAR HGB CONC 32.8 g/dL (33.0-37.0); MEAN PLATELET VOLUME 8.5 fL (7.2-11.7); MONO # 0.5 K/uL (0.0-0.8); MONO % 9.7 % (0.0-10.0); NEUT # 2.6 K/uL (1.8-7.0); NEUT % 55.8 % (50.0-75.0); NRBC % 0.2 % (0.0-2.0); RBC 3.1 Mil/uL (3.80-5.20); RED CELL DISTRIBUTION WIDTH 17.4 % (11.5-14.5); WHITE BLOOD COUNT 4.7 K/uL (4.8-10.8)
--- NOTE | 2018-06-14 08:13 | CP.PCM.PN ---
Subjective - Date & Time of Evaluation Date of Evaluation: 06/14/18 Time of Evaluation: 06:30 - Subjective Subjective: Surgery: Dr. Thomas Pt seen and examined. No acute overnight events. Pt states she feels well and denies any complaints at this time. States she had some old clots with a BM overnight. Tolerating diet, denies fevers/chills, nausea/vomiting. Objective - Vital Signs/Intake and Output Vital Signs (last 24 hours): Temp Pulse Resp BP Pulse Ox 97.8 F 75 15 124/52 L 98 06/14/18 04:00 06/14/18 06:14 06/14/18 06:14 06/14/18 06:14 06/14/18 06:14 Intake and Output: 06/14/18 06/14/18 06:59 18:59 Intake Total 1390 Output Total 258 Balance 1132 - Medications Medications: Current Medications Guaifenesin/Dextromethorphan (Robitussin Dm) 10 ml PO TID PRN PRN Reason: Cough and congestion Hydralazine HCl (Apresoline) 50 mg PO Q8 [facility] Last Admin: 06/14/18 06:22 Dose: 50 mg Multivitamins (Hexavitamin) 1 tab PO DAILY [facility] Last Admin: 06/13/18 09:40 Dose: 1 tab Pantoprazole Sodium (Protonix Inj) 40 mg IVP DAILY [facility] Propranolol HCl (Inderal) 20 mg PO DAILY [facility] Last Admin: 06/13/18 09:40 Dose: 20 mg Rosuvastatin Calcium (Crestor) 5 mg PO HS [facility] Last Admin: 06/13/18 21:43 Dose: 5 mg - Labs Labs: 06/14/18 06:51 06/13/18 06:26 PT 12.5 SECONDS (9.7-12.2) H 06/12/18 01:18 INR 1.1 06/12/18 01:18 APTT 34 SECONDS (21-34) D 06/12/18 01:18 - Constitutional Appears: Well, No Acute Distress - Head Exam Head Exam: ATRAUMATIC, NORMOCEPHALIC - Eye Exam Eye Exam: Normal appearance - ENT Exam ENT Exam: Mucous Membranes Moist - Respiratory Exam Respiratory Exam: NORMAL BREATHING PATTERN - Cardiovascular Exam Cardiovascular Exam: RRR - GI/Abdominal Exam GI & Abdominal Exam: Soft. absent: Tenderness - Neurological Exam Neurological Exam: Alert, Awake, Oriented x3 - Skin Skin Exam: Dry, Intact, Warm Assessment and Plan - Assessment and Plan (Free Text) Assessment: 82F with LGIB Plan: - plan for colonoscopy with GI today - cont to monitor H/H - no plan for surgical intervention at this time - d/w Dr. William Ewing
[2018-06-14 08:53] LABS: ALBUMIN 3.4 g/dL (3.5-5.0); BLOOD UREA NITROGEN 9 mg/dL (7-17); CALCIUM 8.4 mg/dl (8.6-10.4); GFR NON-AFRICAN AMERICAN > 60
[2018-06-14 08:54] LABS: ALB/GLOB RATIO 1.3 (1.0-2.1); ALT/SGPT 29 U/L (9-52); AST/SGOT 42 U/L (14-36)
[2018-06-14] MEDS ORDERED: Magnesium Sulfate 1 gm in D5W 1 GM/100 ML BAG IVPB ONE (08:57)
[2018-06-14] MEDS: Multiple Vitamins Tab PO SCH (10:00)
[2018-06-14] MEDS ORDERED: Propofol 10 mg/ml Inj (20 ML) ONE (11:34)
[2018-06-14] MEDS ORDERED: Lidocaine Hydrochloride 5 ML INJ ONE (11:34)
[2018-06-14] MEDS ORDERED: Phenylephrine 10 mg/ml Inj ONE (11:42)
--- NOTE | 2018-06-14 16:50 | CP.CCUPN ---
<Markel Bear - Last Filed: 06/14/18 16:47> CCU Subjective - Physician Review Subjective (Free Text): Critical Care Progress note for Dr. Bowens's service Patient seen and examined at bedside. Patient offers no acute complaints. Patient denies fevers, chills, chest pain, sob, n/v, dysuria. CCU Objective - Vital Signs / Intake & Output Vital Signs (Last 4 hours): Vital Signs Pulse Resp BP Pulse Ox 06/14/18 12:57 60 13 137/55 L 98 Intake and Output (Last 8hrs): Intake & Output 06/14/18 06/14/18 06/14/18 06:59 14:59 22:59 Intake Total 770 400 Output Total 6 380 Balance 764 20 Intake: IV 250 Intake, IV Amount 100 Right Upper arm 100 Oral 770 50 Output: Urine 2 380 Urine, Voided 2 380 Urine/Stool Mix 4 Other: # Voids Urine, Voided 1 # Bowel Movements 1 - Physical Exam Head: Positive for: Atraumatic, Normocephalic Pupils: Positive for: PERRL Extroacular Muscles: Positive for: EOMI Conjunctiva: Positive for: Normal Mouth: Positive for: Moist Mucous Membranes Respiratory/Chest: Positive for: Clear to Auscultation, Good Air Exchange. Negative for: Respiratory Distress, Accessory Muscle Use, Wheezes, Rhonchi Cardiovascular: Positive for: Regular Rate and Rhythm, Normal S1, S2. Negative for: Murmurs, Irregular Rhythm Abdomen: Positive for: Normal Bowel Sounds. Negative for: Tenderness, Distention, Peritoneal Signs Upper Extremity: Positive for: Normal Inspection. Negative for: Cyanosis, Edema Lower Extremity: Positive for: Normal Inspection. Negative for: Edema Neurological: Positive for: GCS=15 Skin: Positive for: Warm, Normal Color Psychiatric: Positive for: Alert, Oriented x 3 - Medications Active Medications: Active Medications Generic Name Dose Route Start Last Admin Trade Name Freq PRN Reason Stop Dose Admin Guaifenesin/Dextromethorphan 10 ml 06/10/18 23:21 Robitussin Dm PO TID PRN Cough and congestion Hydralazine HCl 50 mg 06/11/18 06:00 06/14/18 14:00 Apresoline PO 50 mg Q8 SANDY Administration Multivitamins 1 tab 06/12/18 10:00 06/14/18 10:00 Hexavitamin PO Not Given DAILY SANDY Pantoprazole Sodium 40 mg 06/14/18 10:00 06/14/18 13:57 Protonix Inj IVP 40 mg DAILY SANDY Administration Propranolol HCl 20 mg 06/11/18 10:00 06/14/18 09:47 Inderal PO 20 mg DAILY SANDY Administration Rosuvastatin Calcium 5 mg 06/11/18 22:00 06/13/18 21:43 Crestor PO 5 mg HS SANDY Administration - Patient Studies Lab Studies: Lab Studies 06/14/18 06/14/18 06/14/18 Range/Units 08:20 08:20 06:51 WBC 4.7 L (4.8-10.8) K/uL RBC 3.10 L (3.80-5.20) Mil/uL Hgb 8.7 L (11.0-16.0) g/dL Hct 26.6 L (34.0-47.0) % MCV 86.0 (81.0-99.0) fL MCH 28.2 (27.0-31.0) pg MCHC 32.8 L (33.0-37.0) g/dL RDW 17.4 H (11.5-14.5) % Plt Count 149 (130-400) K/uL MPV 8.5 (7.2-11.7) fL Neut % (Auto) 55.8 (50.0-75.0) % Lymph % (Auto) 32.1 (20.0-40.0) % Sherman % (Auto) 9.7 (0.0-10.0) % Eos % (Auto) 1.9 (0.0-4.0) % Baso % (Auto) 0.5 (0.0-2.0) % Neut # (Auto) 2.6 (1.8-7.0) K/uL Lymph # (Auto) 1.5 (1.0-4.3) K/uL Sherman # (Auto) 0.5 (0.0-0.8) K/uL Eos # (Auto) 0.1 (0.0-0.7) K/uL Baso # (Auto) 0.0 (0.0-0.2) K/uL Sodium 137 (132-148) mmol/L Potassium 3.4 L (3.6-5.2) mmol/L Chloride 107 (98-107) mmol/L Carbon Dioxide 25 (22-30) mmol/L Anion Gap 9 L (10-20) BUN 9 (7-17) mg/dL Creatinine 0.8 (0.7-1.2) mg/dL Est GFR ( Amer) > 60 Est GFR (Non-Af Amer) > 60 Random Glucose 92 (65-105) mg/dL Calcium 8.4 L (8.6-10.4) mg/dl Phosphorus 2.3 L (2.5-4.5) mg/dL Magnesium 1.5 L (1.6-2.3) mg/dL Total Bilirubin 0.8 (0.2-1.3) mg/dL AST 42 H D (14-36) U/L ALT 29 (9-52) U/L Alkaline Phosphatase 55 (38-126) U/L Total Protein 6.1 L (6.3-8.3) g/dL Albumin 3.4 L (3.5-5.0) g/dL Globulin 2.7 (2.2-3.9) gm/dL Albumin/Globulin Ratio 1.3 (1.0-2.1) Blood Type O POSITIVE Antibody Screen Negative Laboratory Results - last 24 hr 06/14/18 06/14/18 06/14/18 06:51 08:20 08:20 WBC 4.7 L RBC 3.10 L Hgb 8.7 L Hct 26.6 L MCV 86.0 MCH 28.2 MCHC 32.8 L RDW 17.4 H Plt Count 149 MPV 8.5 Neut % (Auto) 55.8 Lymph % (Auto) 32.1 Sherman % (Auto) 9.7 Eos % (Auto) 1.9 Baso % (Auto) 0.5 Neut # (Auto) 2.6 Lymph # (Auto) 1.5 Sherman # (Auto) 0.5 Eos # (Auto) 0.1 Baso # (Auto) 0.0 Sodium 137 Potassium 3.4 L Chloride 107 Carbon Dioxide 25 Anion Gap 9 L BUN 9 Creatinine 0.8 Est GFR ( Amer) > 60 Est GFR (Non-Af Amer) > 60 Random Glucose 92 Calcium 8.4 L Phosphorus 2.3 L Magnesium 1.5 L Total Bilirubin 0.8 AST 42 H D ALT 29 Alkaline Phosphatase 55 Total Protein 6.1 L Albumin 3.4 L Globulin 2.7 Albumin/Globulin Ratio 1.3 Blood Type O POSITIVE Antibody Screen Negative Review of Systems - Review of Systems Review of Systems: 12 point ROS obtained and noted in HPI Critical Care Progress Note - Prophylaxis GI Prophylaxis GI: PPI - Prophylaxis DVT Prophylaxis DVT: SCDs - Nutrition Nutrition: Nutrition Category Date Time Status NPO Diet [DIET] Diets 06/14/18 Lunch Active Assessment/Plan - Assessment and Plan (Free Text) Assessment: Patient is an 82 yo female w/ arthritis, prior hx of gi bleed, diverticulosis, HTN, angina, and HLD admitted to ICU for evaluation of rectal bleed. Neuro awake alert oriented; no active issues Pulm no active issues maintain spO2>92 robitussin CV Crestor, Propanolol, Hydralazine GI active rectal bleed- bleeding scan shows active gi bleed at distal transverse colon CT angio- active intraluminal hemorrhagee involving the left proximal colon repeat CSPY shows hemorrohoids and bleeding diverticulum- epinephrine irrgation for hemostasis; Patient made NPO Protonix daily avoid nsaids Heme H&H stable hemodynamics stable Renal Multivitamins electrolytes repleted as ordered Repeat CMP in AM ID no active issues Disposition: bleeding diverticulum seen on CSPY, epi for hemostasis; patient NPO, further management as per GI; hemodynamically stable; can be on medical floor; avoid NSAIDS DVT ppx: Contraindicated in setting of active GI bleed GI ppx: Protonix drip PGY-1 Markel Bear Medical Management discussed with Dr. Bowens <Shona Bowens - Last Filed: 06/14/18 17:34> CCU Objective - Vital Signs / Intake & Output Vital Signs (Last 4 hours): Vital Signs Pulse Resp BP Pulse Ox 06/14/18 17:00 60 16 100 06/14/18 16:00 61 17 96 06/14/18 15:12 62 16 125/49 L 99 06/14/18 15:00 65 16 96 06/14/18 14:57 66 14 121/51 L 98 06/14/18 14:42 63 19 124/51 L 96 06/14/18 14:27 63 13 130/66 98 06/14/18 14:15 87 18 114/49 L 95 06/14/18 14:12 68 14 126/48 L 99 06/14/18 14:00 69 13 97 06/14/18 13:57 74 16 114/49 L 98 06/14/18 13:45 82 18 127/48 L 93 L 06/14/18 13:42 64 14 127/48 L 96 Intake and Output (Last 8hrs): Intake & Output 06/14/18 06/14/18 06/14/18 06:59 14:59 22:59 Intake Total 770 400 100 Output Total 6 380 480 Balance 764 20 -380 Intake: IV 250 Intake, IV Amount 100 100 Right Upper arm 100 100 Oral 770 50 0 Output: Urine 2 380 480 Urine, Voided 2 380 480 Urine/Stool Mix 4 Other: # Voids Urine, Voided 1 2 # Bowel Movements 1 - Medications Active Medications: Active Medications Generic Name Dose Route Start Last Admin Trade Name Freq PRN Reason Stop Dose Admin Guaifenesin/Dextromethorphan 10 ml 06/10/18 23:21 Robitussin Dm PO TID PRN Cough and congestion Hydralazine HCl 50 mg 06/11/18 06:00 06/14/18 14:00 Apresoline PO 50 mg Q8 SANDY Administration Multivitamins 1 tab 06/12/18 10:00 06/14/18 10:00 Hexavitamin PO Not Given DAILY SANDY Pantoprazole Sodium 40 mg 06/14/18 10:00 06/14/18 13:57 Protonix Inj IVP 40 mg DAILY SANDY Administration Propranolol HCl 20 mg 06/11/18 10:00 06/14/18 09:47 Inderal PO 20 mg DAILY SANDY Administration Rosuvastatin Calcium 5 mg 06/11/18 22:00 06/13/18 21:43 Crestor PO 5 mg HS SANDY Administration - Patient Studies Lab Studies: Lab Studies 06/14/18 06/14/18 06/14/18 Range/Units 08:20 08:20 06:51 WBC 4.7 L (4.8-10.8) K/uL RBC 3.10 L (3.80-5.20) Mil/uL Hgb 8.7 L (11.0-16.0) g/dL Hct 26.6 L (34.0-47.0) % MCV 86.0 (81.0-99.0) fL MCH 28.2 (27.0-31.0) pg MCHC 32.8 L (33.0-37.0) g/dL RDW 17.4 H (11.5-14.5) % Plt Count 149 (130-400) K/uL MPV 8.5 (7.2-11.7) fL Neut % (Auto) 55.8 (50.0-75.0) % Lymph % (Auto) 32.1 (20.0-40.0) % Sherman % (Auto) 9.7 (0.0-10.0) % Eos % (Auto) 1.9 (0.0-4.0) % Baso % (Auto) 0.5 (0.0-2.0) % Neut # (Auto) 2.6 (1.8-7.0) K/uL Lymph # (Auto) 1.5 (1.0-4.3) K/uL Sherman # (Auto) 0.5 (0.0-0.8) K/uL Eos # (Auto) 0.1 (0.0-0.7) K/uL Baso # (Auto) 0.0 (0.0-0.2) K/uL Sodium 137 (132-148) mmol/L Potassium 3.4 L (3.6-5.2) mmol/L Chloride 107 (98-107) mmol/L Carbon Dioxide 25 (22-30) mmol/L Anion Gap 9 L (10-20) BUN 9 (7-17) mg/dL Creatinine 0.8 (0.7-1.2) mg/dL Est GFR ( Amer) > 60 Est GFR (Non-Af Amer) > 60 Random Glucose 92 (65-105) mg/dL Calcium 8.4 L (8.6-10.4) mg/dl Phosphorus 2.3 L (2.5-4.5) mg/dL Magnesium 1.5 L (1.6-2.3) mg/dL Total Bilirubin 0.8 (0.2-1.3) mg/dL AST 42 H D (14-36) U/L ALT 29 (9-52) U/L Alkaline Phosphatase 55 (38-126) U/L Total Protein 6.1 L (6.3-8.3) g/dL Albumin 3.4 L (3.5-5.0) g/dL Globulin 2.7 (2.2-3.9) gm/dL Albumin/Globulin Ratio 1.3 (1.0-2.1) Blood Type O POSITIVE Antibody Screen Negative Laboratory Results - last 24 hr 06/14/18 06/14/18 06/14/18 06:51 08:20 08:20 WBC 4.7 L RBC 3.10 L Hgb 8.7 L Hct 26.6 L MCV 86.0 MCH 28.2 MCHC 32.8 L RDW 17.4 H Plt Count 149 MPV 8.5 Neut % (Auto) 55.8 Lymph % (Auto) 32.1 Sherman % (Auto) 9.7 Eos % (Auto) 1.9 Baso % (Auto) 0.5 Neut # (Auto) 2.6 Lymph # (Auto) 1.5 Sherman # (Auto) 0.5 Eos # (Auto) 0.1 Baso # (Auto) 0.0 Sodium 137 Potassium 3.4 L Chloride 107 Carbon Dioxide 25 Anion Gap 9 L BUN 9 Creatinine 0.8 Est GFR ( Amer) > 60 Est GFR (Non-Af Amer) > 60 Random Glucose 92 Calcium 8.4 L Phosphorus 2.3 L Magnesium 1.5 L Total Bilirubin 0.8 AST 42 H D ALT 29 Alkaline Phosphatase 55 Total Protein 6.1 L Albumin 3.4 L Globulin 2.7 Albumin/Globulin Ratio 1.3 Blood Type O POSITIVE Antibody Screen Negative Critical Care Progress Note - Nutrition Nutrition: Nutrition Category Date Time Status NPO Diet [DIET] Diets 06/14/18 Lunch Active Assessment/Plan - Assessment and Plan (Free Text) Plan: Patient seen and examined at bedside. PAtient with known diverticulosis which was bleeding previously. -PAtient s/p sigmoidoscopy. -remains hemodynamically stable -tolerating oral diet - Date & Time Date: 06/14/18 Time: 17:34
--- NOTE | 2018-06-14 18:27 | CP.PCM.PN ---
Subjective - Date & Time of Evaluation Date of Evaluation: 06/14/18 Time of Evaluation: 18:27 - Subjective Subjective: Patient seen and examined No events overnight Objective - Vital Signs/Intake and Output Vital Signs (last 24 hours): Temp Pulse Resp BP Pulse Ox 98.6 F 60 16 125/49 L 100 06/14/18 12:00 06/14/18 17:00 06/14/18 17:00 06/14/18 15:12 06/14/18 17:00 Intake and Output: 06/14/18 06/14/18 06:59 18:59 Intake Total 1390 500 Output Total 258 860 Balance 1132 -360 - Medications Medications: Current Medications Guaifenesin/Dextromethorphan (Robitussin Dm) 10 ml PO TID PRN PRN Reason: Cough and congestion Hydralazine HCl (Apresoline) 50 mg PO Q8 [facility] Last Admin: 06/14/18 14:00 Dose: 50 mg Multivitamins (Hexavitamin) 1 tab PO DAILY [facility] Last Admin: 06/14/18 10:00 Dose: Not Given Pantoprazole Sodium (Protonix Inj) 40 mg IVP DAILY [facility] Last Admin: 06/14/18 13:57 Dose: 40 mg Propranolol HCl (Inderal) 20 mg PO DAILY [facility] Last Admin: 06/14/18 09:47 Dose: 20 mg Rosuvastatin Calcium (Crestor) 5 mg PO HS [facility] Last Admin: 06/13/18 21:43 Dose: 5 mg - Labs Labs: 06/14/18 06:51 06/14/18 08:20 PT 12.5 SECONDS (9.7-12.2) H 06/12/18 01:18 INR 1.1 06/12/18 01:18 APTT 34 SECONDS (21-34) D 06/12/18 01:18 - Head Exam Head Exam: NORMAL INSPECTION - Eye Exam Eye Exam: Normal appearance - ENT Exam ENT Exam: Mucous Membranes Moist - Respiratory Exam Respiratory Exam: Clear to Ausculation Bilateral - Cardiovascular Exam Cardiovascular Exam: +S1, +S2. absent: REGULAR RHYTHM - GI/Abdominal Exam GI & Abdominal Exam: Soft, Normal Bowel Sounds - Extremities Exam Extremities Exam: Normal Inspection Assessment and Plan (1) Abdominal pain Status: Acute (2) Gastrointestinal hemorrhage Status: Acute (3) Uncontrolled hypertension Status: Acute - Assessment and Plan (Free Text) Plan: Patient seen and examined S/P colonoscopy Results reviewed Follow CBC Blood pressure control DVT/GI prophylaxis
[2018-06-15 06:41] LABS: BASO % 0.5 % (0.0-2.0); EOS # 0.1 K/uL (0.0-0.7); EOS % 2.1 % (0.0-4.0); HEMOGLOBIN 9.7 g/dL (11.0-16.0); LYMPH # 1.3 K/uL (1.0-4.3); LYMPH % 24.2 % (20.0-40.0); MEAN CELL VOLUME 85.1 fL (81.0-99.0); MEAN CORPUSCULAR HEMOGLOBIN 28.4 pg (27.0-31.0); MEAN CORPUSCULAR HGB CONC 33.4 g/dL (33.0-37.0); MEAN PLATELET VOLUME 8.6 fL (7.2-11.7); MONO # 0.4 K/uL (0.0-0.8); MONO % 7.4 % (0.0-10.0); NEUT # 3.4 K/uL (1.8-7.0); NEUT % 65.8 % (50.0-75.0); NRBC % 0.2 % (0.0-2.0); RBC 3.42 Mil/uL (3.80-5.20); RED CELL DISTRIBUTION WIDTH 17.5 % (11.5-14.5); WHITE BLOOD COUNT 5.2 K/uL (4.8-10.8)
[2018-06-15 07:10] LABS: ALB/GLOB RATIO 1.3 (1.0-2.1); ALBUMIN 3.8 g/dL (3.5-5.0); ALT/SGPT 33 U/L (9-52); AST/SGOT 40 U/L (14-36); BLOOD UREA NITROGEN 10 mg/dL (7-17); CALCIUM 8.8 mg/dl (8.6-10.4); GFR NON-AFRICAN AMERICAN 60
[2018-06-15] MEDS: Multiple Vitamins Tab PO SCH (09:02)
--- NOTE | 2018-06-15 11:31 | PN ---
DATE: 06/15/2018 LOCATION: ICU Team. SUBJECTIVE: This is an 82-year-old female seen and examined on rounds without significant clinical changes or reported active bleeding post upper endoscopy and lower endoscopy with epinephrine radiation yesterday. No chest pain or palpitations, significant shortness of breath, chills, or fever. The patient is still NPO due to her episode of active GI bleeding before. Today's lab showed increased hemoglobin 9.7, hematocrit 29.1 with normal platelet count, AST 40. Rest of lab results are normal. PHYSICAL EXAMINATION: GENERAL: An 82-year-old female, awake, alert, and oriented. VITAL SIGNS: Afebrile with pulse of 80, respiratory rate 18 to 20, blood pressure 132/64. HEENT: Shows pale, dry oral mucous membrane. Nonicteric sclerae. LUNGS: Few scattered crepitation. Decreased air entry at bases. HEART: Positive S1 and S2. ABDOMEN: Soft with mild distention. No mass or organomegaly. No rebound tenderness or guarding. RECTAL: . EXTREMITIES: Without significant clubbing, cyanosis, or edema. NEUROLOGIC: No reported new neurological deficits, sensory, or motor. IMPRESSION: 1. Gastrointestinal bleeding most likely secondary to bleeding diverticulosis. 2. Anemia. We will advance the diet. Follow up on H and H. Rose Aaron MD
--- NOTE | 2018-06-15 16:53 | CP.PCM.PN ---
Subjective - Date & Time of Evaluation Date of Evaluation: 06/15/18 Time of Evaluation: 16:53 - Subjective Subjective: Patient seen and examined No events overnight Objective - Vital Signs/Intake and Output Vital Signs (last 24 hours): Temp Pulse Resp BP Pulse Ox 97.2 F L 87 23 109/45 L 95 06/15/18 08:00 06/15/18 15:12 06/15/18 15:12 06/15/18 15:12 06/15/18 15:12 Intake and Output: 06/15/18 06/15/18 06:59 18:59 Intake Total 120 260 Output Total 320 360 Balance -200 -100 - Medications Medications: Current Medications Guaifenesin/Dextromethorphan (Robitussin Dm) 10 ml PO TID PRN PRN Reason: Cough and congestion Hydralazine HCl (Apresoline) 50 mg PO Q8 [facility] Last Admin: 06/15/18 13:14 Dose: 50 mg Multivitamins (Hexavitamin) 1 tab PO DAILY [facility] Last Admin: 06/15/18 09:02 Dose: 1 tab Pantoprazole Sodium (Protonix Inj) 40 mg IVP DAILY [facility] Last Admin: 06/15/18 09:02 Dose: 40 mg Propranolol HCl (Inderal) 20 mg PO DAILY [facility] Last Admin: 06/15/18 09:02 Dose: 20 mg Rosuvastatin Calcium (Crestor) 5 mg PO HS [facility] Last Admin: 06/14/18 22:00 Dose: 5 mg - Labs Labs: 06/15/18 06:20 06/15/18 06:20 PT 12.5 SECONDS (9.7-12.2) H 06/12/18 01:18 INR 1.1 06/12/18 01:18 APTT 34 SECONDS (21-34) D 06/12/18 01:18 - Head Exam Head Exam: NORMAL INSPECTION - Eye Exam Eye Exam: Normal appearance - ENT Exam ENT Exam: Mucous Membranes Moist - Respiratory Exam Respiratory Exam: Clear to Ausculation Bilateral - GI/Abdominal Exam GI & Abdominal Exam: Soft, Normal Bowel Sounds - Extremities Exam Extremities Exam: Normal Inspection Assessment and Plan (1) Abdominal pain Status: Acute (2) Gastrointestinal hemorrhage Status: Acute (3) Uncontrolled hypertension Status: Acute - Assessment and Plan (Free Text) Plan: Patient is transferred out of ICU Protonix Hydralazine Propanolol Follow CBC DVT/GI prophylax
--- NOTE | 2018-06-16 10:26 | PN ---
DATE: 06/16/2018 LOCATION: ICU Team. SUBJECTIVE: This is an 82-year-old female, post upper and lower endoscopy, seen and examined in round, appeared to be awake, alert and oriented, tolerating oral intake well without any reported active bleeding or reported abdominal pain. No reported shortness of breath. The entire chart is reviewed and the most recent lab result yesterday showed a stable hemoglobin and hematocrit, but low. Lab results today still pending. PHYSICAL EXAMINATION: GENERAL: An 82-year-old female. VITAL SIGNS: Afebrile with pulse of 70, respiratory rate of 18 to 20, and blood pressure of 128/54. HEENT: Showed pale, dry oral mucoid membrane. Nonicteric sclerae. LUNGS: Few scattered crepitation. Decreased air entry at bases. HEART: Positive S1 and S2. ABDOMEN: Soft with mild generalized tenderness and slight distention. No mass or organomegaly. No rebound tenderness or guarding. EXTREMITIES: Without edema, clubbing or cyanosis. NEUROLOGIC: No reported new neurological deficits, sensory or motor. IMPRESSION: 1. Gastrointestinal bleeding, most likely secondary to bleeding diverticulosis. 2. Status post upper endoscopy with evidence of peptic ulcer disease, colonoscopy with irrigation of epinephrine with subsequent stop of her rectal bleeding due to bleeding diverticula. 3. Anemia, secondary to above. 4. Known history of hypertension, hyperlipidemia, partial colon resection, status post hysterectomy, and peptic ulcer disease. SUGGESTION: 1. Continue current management. 2. Advance diet gradually. 3. In record, gastric biopsy result showed negative for Helicobacter pylori infection. Rose Aaron MD
[2018-06-16] MEDS: Multiple Vitamins Tab PO SCH (10:30)
[2018-06-16 12:35] LABS: SQUAMOUS EPITHIAL 1 /hpf (0-5); URINE BACTERIA RARE (<OCC); URINE BILIRUBIN NEGATIVE (NEGATIVE); URINE BLOOD NEGATIVE (NEGATIVE); URINE CLARITY Clear (Clear); URINE COLOR Yellow (YELLOW); URINE GLUCOSE (UA) NORMAL (Normal); URINE LEUKOCYTE ESTERASE NEG Leu/uL (Negative); URINE PROTEIN NEGATIVE (NEGATIVE); URINE UROBILINOGEN NORMAL mg/dL (0.2-1.0)
--- NOTE | 2018-06-16 15:40 | CP.PCM.PN ---
Subjective - Date & Time of Evaluation Date of Evaluation: 06/16/18 Time of Evaluation: 15:40 - Subjective Subjective: Patient seen and examined No events overnight Objective - Vital Signs/Intake and Output Vital Signs (last 24 hours): Temp Pulse Resp BP Pulse Ox 98.3 F 93 H 14 115/45 L 99 06/16/18 08:00 06/16/18 12:12 06/16/18 12:12 06/16/18 12:12 06/16/18 12:12 Intake and Output: 06/16/18 06/16/18 06:59 18:59 Intake Total 480 Output Total 300 Balance 180 - Medications Medications: Current Medications Guaifenesin/Dextromethorphan (Robitussin Dm) 10 ml PO TID PRN PRN Reason: Cough and congestion Hydralazine HCl (Apresoline) 50 mg PO Q8 [facility] Last Admin: 06/16/18 14:00 Dose: 50 mg Multivitamins (Hexavitamin) 1 tab PO DAILY [facility] Last Admin: 06/16/18 10:30 Dose: 1 tab Pantoprazole Sodium (Protonix Inj) 40 mg IVP DAILY [facility] Last Admin: 06/16/18 10:30 Dose: 40 mg Propranolol HCl (Inderal) 20 mg PO DAILY [facility] Last Admin: 06/16/18 10:30 Dose: 20 mg Rosuvastatin Calcium (Crestor) 5 mg PO HS [facility] Last Admin: 06/15/18 22:29 Dose: 5 mg - Labs Labs: 06/15/18 06:20 06/15/18 06:20 PT 12.5 SECONDS (9.7-12.2) H 06/12/18 01:18 INR 1.1 06/12/18 01:18 APTT 34 SECONDS (21-34) D 06/12/18 01:18 - Head Exam Head Exam: NORMAL INSPECTION - Eye Exam Eye Exam: Normal appearance - ENT Exam ENT Exam: Mucous Membranes Moist - Respiratory Exam Respiratory Exam: Clear to Ausculation Bilateral - Cardiovascular Exam Cardiovascular Exam: REGULAR RHYTHM, +S1, +S2 - GI/Abdominal Exam GI & Abdominal Exam: Soft, Normal Bowel Sounds - Extremities Exam Extremities Exam: Normal Inspection - Neurological Exam Neurological Exam: Alert, Oriented x3 Assessment and Plan (1) Abdominal pain Status: Acute (2) Gastrointestinal hemorrhage Status: Acute (3) Uncontrolled hypertension Status: Acute - Assessment and Plan (Free Text) Plan: Follow CBC GI follow-up Protonix Hydralazine 50 mg every 8 hours Propanolol 20 mg daily Multivitamins DVT/GI prophylaxis
[2018-06-16 17:51] VITALS: RESP 20
[2018-06-17 07:41] LABS: HEMOGLOBIN 8.1 g/dL (11.0-16.0); MEAN CELL VOLUME 85.5 fL (81.0-99.0); MEAN CORPUSCULAR HEMOGLOBIN 28.9 pg (27.0-31.0); MEAN CORPUSCULAR HGB CONC 33.7 g/dL (33.0-37.0); MEAN PLATELET VOLUME 8.6 fL (7.2-11.7); RBC 2.8 Mil/uL (3.80-5.20); RED CELL DISTRIBUTION WIDTH 17.6 % (11.5-14.5); WHITE BLOOD COUNT 5.4 K/uL (4.8-10.8)
[2018-06-17] MEDS: Multiple Vitamins Tab PO SCH (09:28)
--- NOTE | 2018-06-17 14:21 | PN ---
DATE: 06/17/2018 LOCATION: 663, bed A. SUBJECTIVE: This is an 82-year-old female seen and examined in rounds today with stable vital signs without reported active bleeding, tolerating oral intake well. The entire chart is reviewed including but not limited to the most recent lab and radiology study result, current and the previous medications list, current and previous clinical events. LABORATORY DATA: Today's labs showed hemoglobin drop to 8.1, hematocrit 23.9. The rest of lab results still pending. PHYSICAL EXAMINATION: GENERAL: An 82-year-old female. VITAL SIGNS: Afebrile with pulse of 82, respiratory rate of 20 to 22, blood pressure 120/64. HEENT: Showed pale, dry oral mucoid membrane. Nonicteric sclerae. LUNGS: Few scattered crepitation. Decreased air entry at bases. HEART: Positive S1 and S2. ABDOMEN: Soft with mild generalized tenderness. No mass or organomegaly. No rebound tenderness or guarding. EXTREMITIES: Without significant clubbing, cyanosis or edema. NEUROLOGIC: No reported new neurological deficits, sensory or motor. No reported new focal deficits. IMPRESSION: 1. Gastrointestinal bleeding, most likely secondary to bleeding diverticulosis. 2. peptic ulcer disease. 3. Anemia, secondary to above. 4. Known history of hyperlipidemia, hypertension, partial colon resection with status post hysterectomy. SUGGESTION: 1. Continue current management. 2. as needed to get hemoglobin around 10 g/dl. 3. Further recommendation to follow. Rose Aaron MD
[2018-06-18] MEDS: Multiple Vitamins Tab PO SCH (10:18)
[2018-06-18 14:09] LABS: BASO # 0.1 K/uL (0.0-0.2); BASO % 0.9 % (0.0-2.0); EOS # 0.1 K/uL (0.0-0.7); HEMOGLOBIN 7.6 g/dL (11.0-16.0); LYMPH # 1.7 K/uL (1.0-4.3); LYMPH % 29.9 % (20.0-40.0); MEAN CELL VOLUME 85.4 fL (81.0-99.0); MEAN CORPUSCULAR HEMOGLOBIN 29.1 pg (27.0-31.0); MEAN CORPUSCULAR HGB CONC 34.1 g/dL (33.0-37.0); MEAN PLATELET VOLUME 8.2 fL (7.2-11.7); MONO # 0.5 K/uL (0.0-0.8); MONO % 9.7 % (0.0-10.0); NEUT # 3.3 K/uL (1.8-7.0); NEUT % 58.5 % (50.0-75.0); NRBC % 0.2 % (0.0-2.0); RBC 2.62 Mil/uL (3.80-5.20); WHITE BLOOD COUNT 5.7 K/uL (4.8-10.8)
--- NOTE | 2018-06-18 16:05 | CP.PCM.PN ---
Subjective - Date & Time of Evaluation Date of Evaluation: 06/18/18 Time of Evaluation: 16:05 - Subjective Subjective: Patient seen and examined No events overnight Objective - Vital Signs/Intake and Output Vital Signs (last 24 hours): Temp Pulse Resp BP Pulse Ox 98.5 F 109 H 20 100/58 L 100 06/18/18 07:15 06/18/18 07:15 06/18/18 07:15 06/18/18 13:20 06/18/18 07:15 - Medications Medications: Current Medications Guaifenesin/Dextromethorphan (Robitussin Dm) 10 ml PO TID PRN PRN Reason: Cough and congestion Last Admin: 06/17/18 09:28 Dose: 10 ml Hydralazine HCl (Apresoline) 50 mg PO Q8 [facility] Last Admin: 06/18/18 13:19 Dose: Not Given Multivitamins (Hexavitamin) 1 tab PO DAILY [facility] Last Admin: 06/18/18 10:18 Dose: 1 tab Pantoprazole Sodium (Protonix Inj) 40 mg IVP DAILY [facility] Last Admin: 06/18/18 10:17 Dose: 40 mg Propranolol HCl (Inderal) 20 mg PO DAILY [facility] Last Admin: 06/18/18 10:18 Dose: 20 mg Rosuvastatin Calcium (Crestor) 5 mg PO HS [facility] Last Admin: 06/17/18 21:42 Dose: 5 mg - Labs Labs: 06/18/18 13:52 06/15/18 06:20 PT 12.5 SECONDS (9.7-12.2) H 06/12/18 01:18 INR 1.1 06/12/18 01:18 APTT 34 SECONDS (21-34) D 06/12/18 01:18 - Head Exam Head Exam: NORMAL INSPECTION - Eye Exam Eye Exam: Normal appearance - ENT Exam ENT Exam: Mucous Membranes Moist - Respiratory Exam Respiratory Exam: Clear to Ausculation Bilateral - Cardiovascular Exam Cardiovascular Exam: REGULAR RHYTHM - GI/Abdominal Exam GI & Abdominal Exam: Soft - Extremities Exam Extremities Exam: Normal Inspection Assessment and Plan (1) Gastrointestinal hemorrhage Status: Acute (2) Uncontrolled hypertension Status: Acute - Assessment and Plan (Free Text) Plan: Discharge planning for a.m. Protonix Hydralazine 50 mg every 8 hours Propanolol 20 mg daily Multivitamins DVT/GI prophylaxis
--- NOTE | 2018-06-18 16:05 | CP.PCM.PN ---
Subjective - Date & Time of Evaluation Date of Evaluation: 06/17/18 Time of Evaluation: 16:05 - Subjective Subjective: Patient seen and examined Reports improved cough Denies any rectal bleed Objective - Vital Signs/Intake and Output Vital Signs (last 24 hours): Temp Pulse Resp BP Pulse Ox 98.5 F 109 H 20 100/58 L 100 06/18/18 07:15 06/18/18 07:15 06/18/18 07:15 06/18/18 13:20 06/18/18 07:15 - Medications Medications: Current Medications Guaifenesin/Dextromethorphan (Robitussin Dm) 10 ml PO TID PRN PRN Reason: Cough and congestion Last Admin: 06/17/18 09:28 Dose: 10 ml Hydralazine HCl (Apresoline) 50 mg PO Q8 [facility] Last Admin: 06/18/18 13:19 Dose: Not Given Multivitamins (Hexavitamin) 1 tab PO DAILY [facility] Last Admin: 06/18/18 10:18 Dose: 1 tab Pantoprazole Sodium (Protonix Inj) 40 mg IVP DAILY [facility] Last Admin: 06/18/18 10:17 Dose: 40 mg Propranolol HCl (Inderal) 20 mg PO DAILY [facility] Last Admin: 06/18/18 10:18 Dose: 20 mg Rosuvastatin Calcium (Crestor) 5 mg PO HS [facility] Last Admin: 06/17/18 21:42 Dose: 5 mg - Labs Labs: 06/18/18 13:52 06/15/18 06:20 PT 12.5 SECONDS (9.7-12.2) H 06/12/18 01:18 INR 1.1 06/12/18 01:18 APTT 34 SECONDS (21-34) D 06/12/18 01:18 - Head Exam Head Exam: NORMAL INSPECTION - Eye Exam Eye Exam: Normal appearance - ENT Exam ENT Exam: Mucous Membranes Moist - Respiratory Exam Respiratory Exam: Clear to Ausculation Bilateral - Cardiovascular Exam Cardiovascular Exam: REGULAR RHYTHM, +S1, +S2 - GI/Abdominal Exam GI & Abdominal Exam: Soft, Normal Bowel Sounds - Extremities Exam Extremities Exam: Normal Inspection Assessment and Plan (1) Abdominal pain Status: Acute (2) Gastrointestinal hemorrhage Status: Acute (3) Uncontrolled hypertension Status: Acute - Assessment and Plan (Free Text) Plan: Follow CBC Protonix Hydralazine 50 mg every 8 hours Propanolol 20 mg daily Multivitamins DVT/GI prophylaxis
[2018-06-19 07:45] VITALS: TEMP 98.6; O2SAT 99
[2018-06-19] MEDS: Multiple Vitamins Tab PO SCH (09:23)
[2018-06-19] MEDS ORDERED: Pantoprazole 40 mg EC Tab PO SCH (10:00)
[2018-06-19 14:07] VITALS: BP 111/79; PULSE 79
[2018-06-19 14:16] LABS: BASO % 0.6 % (0.0-2.0); EOS # 0.1 K/uL (0.0-0.7); EOS % 1.6 % (0.0-4.0); HEMOGLOBIN 9.5 g/dL (11.0-16.0); LYMPH # 1.7 K/uL (1.0-4.3); LYMPH % 27.5 % (20.0-40.0); MEAN CELL VOLUME 85.4 fL (81.0-99.0); MEAN CORPUSCULAR HEMOGLOBIN 28.9 pg (27.0-31.0); MEAN CORPUSCULAR HGB CONC 33.8 g/dL (33.0-37.0); MEAN PLATELET VOLUME 8.2 fL (7.2-11.7); MONO # 0.5 K/uL (0.0-0.8); NEUT # 3.8 K/uL (1.8-7.0); NEUT % 61.3 % (50.0-75.0); NRBC % 0.1 % (0.0-2.0); RBC 3.29 Mil/uL (3.80-5.20); RED CELL DISTRIBUTION WIDTH 17.1 % (11.5-14.5); WHITE BLOOD COUNT 6.1 K/uL (4.8-10.8)
--- NOTE | 2018-06-19 15:34 | CP.PCM.PN ---
Subjective - Date & Time of Evaluation Date of Evaluation: 06/19/18 Time of Evaluation: 12:10 - Subjective Subjective: patient seen today, states feels better denies any chest pain, sob, dizziness, abdominal pain, N/V/, no bleeding reported vss and labs - reviewed stable s/p PRBC transfusion and hgb improved from 7.6 to 9. 5 Objective - Vital Signs/Intake and Output Vital Signs (last 24 hours): Temp Pulse Resp BP Pulse Ox 98.6 F 79 20 111/79 99 06/19/18 07:10 06/19/18 14:07 06/19/18 07:10 06/19/18 14:07 06/19/18 07:10 Intake and Output: 06/19/18 06/19/18 06:59 18:59 Intake Total 761 Balance 761 - Medications Medications: Current Medications Guaifenesin/Dextromethorphan (Robitussin Dm) 10 ml PO TID PRN PRN Reason: Cough and congestion Last Admin: 06/17/18 09:28 Dose: 10 ml Hydralazine HCl (Apresoline) 50 mg PO Q8 [facility] Last Admin: 06/19/18 14:07 Dose: Not Given Multivitamins (Hexavitamin) 1 tab PO DAILY [facility] Last Admin: 06/19/18 09:23 Dose: 1 tab Pantoprazole Sodium (Protonix Ec Tab) 40 mg PO DAILY [facility] Last Admin: 06/19/18 09:23 Dose: 40 mg Propranolol HCl (Inderal) 20 mg PO DAILY [facility] Last Admin: 06/19/18 12:07 Dose: 20 mg Rosuvastatin Calcium (Crestor) 5 mg PO HS [facility] Last Admin: 06/18/18 23:30 Dose: 5 mg - Labs Labs: 06/19/18 13:20 06/15/18 06:20 PT 12.5 SECONDS (9.7-12.2) H 06/12/18 01:18 INR 1.1 06/12/18 01:18 APTT 34 SECONDS (21-34) D 06/12/18 01:18 Assessment and Plan - Assessment and Plan (Free Text) Assessment: A/P 82 year old female with a history of diverticulitis, HTN, HLD admitted with GI blled and acute anemia s/p PRBC transfusion s/p colonoscopy hgb - stable D/w Dr. Brielle rhodes for discharge home today and f/u with [facility] office discharge plan discussed with patient , who understands and agrees with plan patient instructed to returns to ED if symptoms returns or any other concerning symptoms
--- NOTE | 2018-06-19 16:20 | PN ---
DATE: 06/19/2018 LOCATION: 663, bed A. SUBJECTIVE: This is an 82-year-old female seen and examined in rounds without significant clinical changes. No reported active bleeding so far since being out of the intensive care unit. The patient is somewhat tolerating oral intake, but no reported actual chest pain, palpitation or significant shortness of breath. The entire chart is reviewed and the most recent lab results showed low hemoglobin 7.6, hematocrit 22.3 as per yesterday. Today's lab results are still pending. PHYSICAL EXAMINATION: GENERAL: An 82-year-old female, awake, alert. VITAL SIGNS: Afebrile with pulse of 78, respiratory rate 20-22, blood pressure of 128/62. HEENT: Showed pale dry oral mucous membrane. Nonicteric sclerae. LUNGS: Few scattered crepitation. Decreased air entry at bases. HEART: Positive S1 and S2. ABDOMEN: Soft with mild generalized tenderness. No mass or organomegaly. No rebound tenderness or guarding. EXTREMITIES: Without significant clubbing, cyanosis or edema. No reported new neurological deficits, sensory or motor. RECTAL: Examination of this patient refused. IMPRESSION: 1. Recent history of gastrointestinal bleeding secondary to bleeding diverticula. 2. Peptic ulcer disease. 3. Anemia secondary to above. hypertension, hyperlipidemia with reported partial colon resection with status post hysterectomy by history. SUGGESTIONS: 1. Continue current management. 2. Follow up on cancer markers. 3. Blood transfusion as needed, keep hemoglobin around 10 g percent. Rose Aaron MD
--- NOTE | 2018-06-28 01:42 | CP.PCM.DIS ---
Provider - Provider Date of Admission: 06/10/18 17:03 Attending physician: Milagros Bowens MD Consults: 06/10/18 17:54 Physician Consult Stat Comment: Consulting Provider: Rose Estes Consulting Physician: Rose Estes Reason for Consult: gi bleed 06/11/18 17:54 General Surgery Consult Routine Comment: Consulting Provider: Jin Thomas Jr. Consulting Physician: Jin Thomas Jr. Reason for Consult: active GI bleed, GI team rq s/p bleeding scan Time Spent in preparation of Discharge (in minutes): 35 Hospital Course - Lab Results Lab Results: Micro Results 06/16/18 20:40 Nose MRSA Culture (Admit) - Final MRSA NOT DETECTED 06/16/18 12:15 Urine,Clean Catch Urine Culture - Final 50-100,000 CFU/ML. MULTIPLE SPECIES. SUGGEST REPEAT SPECIMEN. 06/11/18 15:21 Naris MRSA Culture (Admit) - Final MRSA NOT DETECTED Most Recent Lab Values WBC 6.1 K/uL (4.8-10.8) 06/19/18 13:20 RBC 3.29 Mil/uL (3.80-5.20) L 06/19/18 13:20 Hgb 9.5 g/dL (11.0-16.0) L 06/19/18 13:20 Hct 28.1 % (34.0-47.0) L 06/19/18 13:20 MCV 85.4 fL (81.0-99.0) 06/19/18 13:20 MCH 28.9 pg (27.0-31.0) 06/19/18 13:20 MCHC 33.8 g/dL (33.0-37.0) 06/19/18 13:20 RDW 17.1 % (11.5-14.5) H 06/19/18 13:20 Plt Count 290 K/uL (130-400) 06/19/18 13:20 MPV 8.2 fL (7.2-11.7) 06/19/18 13:20 Neut % (Auto) 61.3 % (50.0-75.0) 06/19/18 13:20 Lymph % (Auto) 27.5 % (20.0-40.0) 06/19/18 13:20 [place] % (Auto) 9.0 % (0.0-10.0) 06/19/18 13:20 Eos % (Auto) 1.6 % (0.0-4.0) 06/19/18 13:20 Baso % (Auto) 0.6 % (0.0-2.0) 06/19/18 13:20 Neut # (Auto) 3.8 K/uL (1.8-7.0) 06/19/18 13:20 Lymph # (Auto) 1.7 K/uL (1.0-4.3) 06/19/18 13:20 [place] # (Auto) 0.5 K/uL (0.0-0.8) 06/19/18 13:20 Eos # (Auto) 0.1 K/uL (0.0-0.7) 06/19/18 13:20 Baso # (Auto) 0.0 K/uL (0.0-0.2) 06/19/18 13:20 PT 12.5 SECONDS (9.7-12.2) H 06/12/18 01:18 INR 1.1 06/12/18 01:18 APTT 34 SECONDS (21-34) D 06/12/18 01:18 Sodium 137 mmol/L (132-148) 06/15/18 06:20 Potassium 3.7 mmol/L (3.6-5.2) 06/15/18 06:20 Chloride 102 mmol/L (98-107) 06/15/18 06:20 Carbon Dioxide 25 mmol/L (22-30) 06/15/18 06:20 Anion Gap 14 (10-20) 06/15/18 06:20 BUN 10 mg/dL (7-17) 06/15/18 06:20 Creatinine 0.9 mg/dL (0.7-1.2) 06/15/18 06:20 Est GFR ( Amer) > 60 06/15/18 06:20 Est GFR (Non-Af Amer) 60 06/15/18 06:20 POC Glucose (mg/dL) 147 mg/dL (65-110) H 06/12/18 00:53 Random Glucose 69 mg/dL (65-105) D 06/15/18 06:20 Calcium 8.8 mg/dl (8.6-10.4) 06/15/18 06:20 Phosphorus 3.2 mg/dL (2.5-4.5) 06/15/18 06:20 Magnesium 1.6 mg/dL (1.6-2.3) 06/15/18 06:20 Total Bilirubin 0.7 mg/dL (0.2-1.3) 06/15/18 06:20 AST 40 U/L (14-36) H 06/15/18 06:20 ALT 33 U/L (9-52) 06/15/18 06:20 Alkaline Phosphatase 62 U/L (38-126) 06/15/18 06:20 Troponin I < 0.0120 ng/mL (0.00-0.120) 06/10/18 14:32 Total Protein 6.6 g/dL (6.3-8.3) 06/15/18 06:20 Albumin 3.8 g/dL (3.5-5.0) 06/15/18 06:20 Globulin 2.8 gm/dL (2.2-3.9) 06/15/18 06:20 Albumin/Globulin Ratio 1.3 (1.0-2.1) 06/15/18 06:20 Lipase 105 U/L (23-300) 06/10/18 14:32 Urine Color Yellow (YELLOW) 06/16/18 12:15 Urine Clarity Clear (Clear) 06/16/18 12:15 Urine pH 5.0 (5.0-8.0) 06/16/18 12:15 Ur Specific [place] 1.011 (1.003-1.030) 06/16/18 12:15 Urine Protein Negative mg/dL (NEGATIVE) 06/16/18 12:15 Urine Glucose (UA) Normal mg/dL (Normal) 06/16/18 12:15 Urine Ketones Negative mg/dL (NEGATIVE) 06/16/18 12:15 Urine Blood Negative (NEGATIVE) 06/16/18 12:15 Urine Nitrate Negative (NEGATIVE) 06/16/18 12:15 Urine Bilirubin Negative (NEGATIVE) 06/16/18 12:15 Urine Urobilinogen Normal mg/dL (0.2-1.0) 06/16/18 12:15 Ur Leukocyte Esterase Neg Theo/uL (Negative) 06/16/18 12:15 Urine WBC (Auto) 3 /hpf (0-5) 06/16/18 12:15 Urine RBC (Auto) 1 /hpf (0-3) 06/16/18 12:15 Ur Squamous Epith Cells 1 /hpf (0-5) 06/16/18 12:15 Urine Bacteria Rare (<OCC) 06/16/18 12:15 Blood Type O POSITIVE 06/18/18 17:18 Antibody Screen Negative 06/18/18 17:18 - Hospital Course Hospital Course: Patient presented with bright red blood per rectum. She was transferred to intensive care unit where she had a bleeding scan that confirmed colonic bleed. Patient underwent EGD and colonoscopy where colonoscopy revealed diverticulum and evidence of lower GI bleed. Patient refused transfusion. Her condition improved and is discharged home in stable condition Discharge Exam - Head Exam Head Exam: ATRAUMATIC, NORMOCEPHALIC - Eye Exam Eye Exam: Normal appearance - Respiratory Exam Respiratory Exam: Chest Wall Tenderness, Clear to PA & Lateral - Cardiovascular Exam Cardiovascular Exam: REGULAR RHYTHM - GI/Abdominal Exam GI & Abdominal Exam: Normal Bowel Sounds - Extremities Exam Extremities exam: normal inspection - Neurological Exam Neurological exam: Alert - Psychiatric Exam Psychiatric exam: Normal Affect, Normal Mood - Skin Skin Exam: Normal Color Discharge Plan - Follow Up Plan Condition: FAIR Disposition: HOME/ ROUTINE Instructions: Colonoscopy (DC), [place] Diet, Upper GI Endoscopy (DC), Gastrointestinal Bleeding (DC) Additional Instructions: Please follow up with Dr. Marline Price office in 1 week ( follow up visit and needs repeat blood work ) No NSAIDS Please resume all home medications Referrals: Aly Horan MD [Staff Provider] - (Pt stated she will call and make her own appointment.)
== END 2018-06-19 16:17 | disposition home or self-care (01) | DRG 378 ==
LOC: C.ER 13:16 → C.9E 17:03 → C.6T 06-11 13:37 → C.9I 06-11 14:45 → C.6T 06-16 19:14
PROVIDERS: ADMIT Internal Medicine Nephrology; ATTEND Internal Medicine Nephrology
PROC: 02HV33Z Insertion of Infusion Device into Superior Vena Cava, Percutaneous Approach (ICD-10-PCS; 2018-06-11)
PROC: B548ZZA Ultrasonography of Superior Vena Cava, Guidance (ICD-10-PCS; 2018-06-11)
PROC: 0DJD8ZZ Inspection of Lower Intestinal Tract, Via Natural or Artificial Opening Endoscopic (ICD-10-PCS; 2018-06-12)
PROC: 0DB68ZX Excision of Stomach, Via Natural or Artificial Opening Endoscopic, Diagnostic (ICD-10-PCS; principal; 2018-06-12 11:36)
PROC: 0DJD8ZZ Inspection of Lower Intestinal Tract, Via Natural or Artificial Opening Endoscopic (ICD-10-PCS; 2018-06-14)
DX: K57.91 Diverticulosis of intestine, part unspecified, without perforation or abscess with bleeding (principal); D62 Acute posthemorrhagic anemia; E78.5 Hyperlipidemia, unspecified; I95.9 Hypotension, unspecified; I10 Essential (primary) hypertension; K27.9 Peptic ulcer, site unspecified, unspecified as acute or chronic, without hemorrhage or perforation; K64.8 Other hemorrhoids; Z79.82 Long term (current) use of aspirin; Z86.010 Personal history of colon polyps; Z87.11 Personal history of peptic ulcer disease; K29.80 Duodenitis without bleeding